=== PATIENT | female | born 1970 | race Caucasian/White ===

== ENCOUNTER 2018-09-25 11:53 | Outpatient (REF) | payer BC, SELFPAY ==
[2018-09-25 20:08] LABS: Cholesterol 194 mg/dL (50-200); HDL Cholesterol 62 mg/dL (40-60); Iron 51 ug/dL (50-175); LDL CHOLESTEROL 107 mg/dL (<100); Total Iron Binding Capacity 349 ug/dL (250-450); Transferrin Sat 15 % (15-50); Triglyceride 94 mg/dL (30-150)
== END 2018-09-25 12:13 ==
LOC: NCHCN 11:53
PROVIDERS: PCP Nurse Practitioner; Visit Provider Nurse Practitioner
DX: D50.9 Iron deficiency anemia, unspecified (principal); E78.5 Hyperlipidemia, unspecified
CPT/HCPCS: 80061; 83721; 83540; 83550

== ENCOUNTER 2018-10-18 00:15 | Outpatient (CLI) | payer BC, SELFPAY ==
--- NOTE | 2018-10-18 13:00 | DI.US_ITS ---
SYMPTOM/DIAGNOSIS: VAGINAL BLEEDING, N93.9, H/O HYSTERECTOMY AND UTERINE FIBROIDS. PELVIC ULTRASOUND: Comparison is made with 03 Aug 2016. Transabdominal and transvaginal exams were performed. The transabdominal images are limited by poor bladder distention. The patient is status post hysterectomy. There is a cervical remnant showing a Nabothian cyst. There is a small amount of fluid in the residual cervical canal. No definite mass is seen. A simple cyst is noted on the left ovary measuring 2.5 cm. The right ovary is unremarkable. IMPRESSION: Small amount of fluid in the cervical canal status post hysterectomy. Simple appearing left ovarian cyst.
== END 2018-10-18 00:35 ==
PROVIDERS: PCP Nurse Practitioner; Visit Provider Nurse Practitioner
DX: N93.9 Abnormal uterine and vaginal bleeding, unspecified (principal); N83.292 Other ovarian cyst, left side; Z90.710 Acquired absence of both cervix and uterus
CPT/HCPCS: 76830; 76856

== ENCOUNTER 2019-05-09 10:46 | Outpatient (REF) | payer MEDICAID, SELFPAY ==
[2019-05-09 20:57] LABS: HCT 40.1 % (36.0-46.0); HGB 13.3 g/dL (12.0-15.5); Mean Corp. HGB Concentration 33.2 g/dL (32.0-36.0); Mean Corpuscular Volume 90.5 fL (80-95); Mean Platelet Volume 10.3 fL (8.0-11.0); Platelet Count 250 x1000/uL (130-400); RBC 4.43 m/cumm (4.00-5.20); RBC Distribution Width 14.9 % (11.7-14.6)
[2019-05-09 21:12] LABS: Iron 78 ug/dL (50-175); Total Iron Binding Capacity 337 ug/dL (250-450); Transferrin Sat 23 % (15-50)
[2019-05-09 21:16] LABS: ALT 17 U/L (12-78); AST 15 U/L (15-37); Albumin 3.6 g/dL (3.4-5.0); Alkaline Phosphatase 90 U/L (46-116); Anion Gap 8.9 mmol/L (3-11); BUN 8 mg/dL (7-18); Bilirubin, Total 0.6 mg/dL (0.2-1.0); CO2 27.1 mmol/L (21.0-32.0); CREATININE 0.71 mg/dL (0.55-1.02); Calcium 9.1 mg/dL (8.5-10.1); Calculated LDL 116 mg/dL; Chloride 105 mmol/L (98-107); Cholesterol 223 mg/dL (50-200); Glucose 96 mg/dL (70-100); HDL Cholesterol 78 mg/dL (40-60); Potassium 4.2 mmol/L (3.5-5.1); Sodium 141 mmol/L (136-145); Total Protein 7.1 g/dL (6.4-8.2); Triglyceride 146 mg/dL (30-150)
== END 2019-05-09 11:06 ==
LOC: NCHCN 10:46
PROVIDERS: PCP Nurse Practitioner; Visit Provider Nurse Practitioner
DX: D50.9 Iron deficiency anemia, unspecified (principal); E78.5 Hyperlipidemia, unspecified; E66.01 Morbid (severe) obesity due to excess calories
CPT/HCPCS: 80053; 80061; 83721; 85027; 83540; 83550

== ENCOUNTER 2019-05-13 11:33 | Emergency (ER) | payer MEDICAID, SELFPAY ==
[2019-05-13 11:40] VITALS: BP 140/90; PULSE 80; TEMP 36.7; O2SAT 93
[2019-05-13 12:10] LABS: Bilirubin Negative (Negative); Blood Moderate (Negative); Clarity Cloudy (Clear); Glucose Negative (Negative); Ketones Trace mg/dL (Negative); Leukocyte Esterase Large (Negative); Nitrite Negative (Negative); Specific Gravity >= 1.030 (1.005-1.025); Urobilinogen 0.2 EU/dL (Up TO 0.2); pH 5.5 (5-8)
--- NOTE | 2019-05-13 12:12 | ED.GENADUL_ITS ---
Discharge Plan Discharge Details Chief Complaint: [employer] WORK[employer]OR Primary Care Provider: Yumiko Sheriff ED Provider: Marty Lainez Home Meds and New Rx's Prescriptions: No Action bupropion HCl [Wellbutrin SR] 150 mg tablet sustained-release 12 hr 150 mg PO DAILY RF: 0 benzonatate 200 mg capsule 200 mg PO TID PRNRF: 0 ascorbic acid (vitamin C) 500 mg tablet 500 mg PO DAILY RF: 0 nystatin 100,000 unit/gram cream 1 applic TP BID RF: 0 ferrous gluconate 240 mg (27 mg iron) tablet 240 mg PO DAILY RF: 0 furosemide 20 mg tablet 20 mg PO DAILY RF: 0 ProAir HFA 90 mcg/actuation HFA aerosol inhaler 2 puff IH Q4H PRNRF: 0 omeprazole magnesium [Prilosec OTC] 20 MG tablet,delayed release (DR/EC) 20 mg PO DAILY RF: 0 gxmiwiftdsin-bekb-vprtp acid [Multi Complete with Iron] 1 EACH tablet 1 tab-cap PO DAILY RF: 0 HPI Carin left without being seen as she remembered she had an appointment before I had a chance to see her. General Date/Time Provider Initiated Documentation: 05/13/19 11:53 . Related Data Home Medications Medication Instructions Recorded Confirmed ruutfumswksq-cuph-[id number] acid 1 tab-cap PO DAILY tab-cap 12/09/14 02/11/18 [Multi Complete with Iron] omeprazole magnesium [Prilosec Otc] 20 mg PO DAILY 12/09/14 02/11/18 albuterol sulfate HFA 90 2 puff IH Q4H PRN gm 11/29/18 11/29/18 mcg/actuation aerosol inhaler ascorbic acid (vitamin C) 500 mg 500 mg PO DAILY 11/29/18 11/29/18 tablet benzonatate 200 mg capsule 200 mg PO TID PRN 11/29/18 11/29/18 bupropion HCl SR 150 mg tablet,12 150 mg PO DAILY 11/29/18 11/29/18 hr sustained-release ferrous gluconate 240 mg (27 mg 240 mg PO DAILY tab 11/29/18 11/29/18 iron) tablet furosemide 20 mg tablet 20 mg PO DAILY 11/29/18 11/29/18 nystatin 100,000 unit/gram topical 1 applic TP BID 11/29/18 11/29/18 cream Allergies Allergy/AdvReac Type Severity Reaction Status Date / Time Sulfa (Sulfonamide Allergy Intermediate Rash Unverified 02/11/18 12:02 Antibiotics) General Stated Complaint: [employer] JENELLE: 3 PFSH Medical History At risk for sleep apnea (Acute) Bronchitis, acute, with bronchospasm (Acute) Daytime somnolence (Acute) Edema (Acute) Hyperlipemia (Acute) Iron deficiency anemia (Acute) Koilonychia (Acute) Nabothian cyst (Acute) Onychomycosis (Acute) Pain, joint, knee, left (Acute) Rosacea (Acute) Tinea pedis (Acute) Vaginal bleeding (Acute) Depression (Chronic) GERD (gastroesophageal reflux disease) (Chronic) H/O: hysterectomy (Chronic) Social History Smoking/Tobacco Use Status: Never Drug use: Never Do you feel safe in your relationship?: Yes Course Vital Signs Temperature 36.7 C 05/13/19 11:40 Pulse 80 05/13/19 11:40 Blood Pressure 140/90 05/13/19 11:40 Pulse Oximetry 93 L 05/13/19 11:40 Temperature 36.7 C 05/13/19 11:40 Temperature Source Temporal Artery Scan 05/13/19 11:40 Pulse 80 05/13/19 11:40 Blood Pressure 140/90 05/13/19 11:40 Blood Pressure Position Sitting 05/13/19 11:40 Pulse Oximetry 93 L 05/13/19 11:40 Oxygen Delivery Method Room Air 05/13/19 11:40 Oxygen Flow Rate 0 05/13/19 11:40
[2019-05-13 12:13] LABS: Epithelial Cells Many HPF (Negative); RBC 20-50 (0-2); WBC 20-50 HPF (0-5)
[2019-05-13 12:15] LABS: Bacteria Moderate HPF (Negative); C & S Indicated? No/Sq. Contamination; Casts Negative LPF (Negative); Crystals Negative HPF (Negative); Mucus Negative (Negative)
--- NOTE | 2019-05-13 12:17 | NUR.NOTE ---
pt gave a urine sample and then realized that she was supposed to be in [place] right away. she left but states that she will be back Nursing Note:
== END 2019-05-13 12:07 | disposition left before discharge ==
PROVIDERS: Emergency Provider Physician Assistant Medical; PCP Nurse Practitioner
DX: Z53.21 Procedure and treatment not carried out due to patient leaving prior to being seen by health care provider (principal)
CPT/HCPCS: 81003; 81015

== ENCOUNTER 2019-05-13 19:46 | Emergency (ER) | payer MEDICAID, SELFPAY ==
[2019-05-13 19:49] VITALS: BP 153/99; PULSE 81; RESP 16; TEMP 36.5; O2SAT 98
[2019-05-13] MEDS: Fluconazole 100 MG TAB PO (20:10)
--- NOTE | 2019-05-13 20:11 | ED.GENADUL_ITS ---
Discharge Plan Disposition Patient Disposition: HOME Condition: Stable Discharge Details Chief Complaint: Urinary Clinical Impression: Urinary tract infection Primary Care Provider: Yumiko Sheriff ED Provider: Elmer Luis Home Meds and New Rx's Prescriptions: New nitrofurantoin monohyd/m-cryst [Macrobid] 100 mg capsule 100 mg PO BID Qty: 14 RF: 0 fluconazole 100 mg tablet 100 mg PO DAILY Qty: 1 RF: 0 Continued bupropion HCl [Wellbutrin SR] 150 mg tablet sustained-release 12 hr 150 mg PO DAILY RF: 0 benzonatate 200 mg capsule 200 mg PO TID PRNRF: 0 ascorbic acid (vitamin C) 500 mg tablet 500 mg PO DAILY RF: 0 nystatin 100,000 unit/gram cream 1 applic TP BID RF: 0 ferrous gluconate 240 mg (27 mg iron) tablet 240 mg PO DAILY RF: 0 furosemide 20 mg tablet 20 mg PO DAILY RF: 0 albuterol sulfate [ProAir HFA] 90 mcg/actuation HFA aerosol inhaler 2 puff IH Q4H PRNRF: 0 Prilosec OTC 20 MG tablet,delayed release (DR/EC) 20 mg PO DAILY RF: 0 Multi Complete with Iron 1 EACH tablet 1 tab-cap PO DAILY RF: 0 Discharge Instructions Instructions: Urinary Tract Infection in Women (ED) Additional Instructions: follow up with your primary care provider or women's wellness if not better in a week if you have severe back pain, fevers, abdominal pain or persistent vomit return to the emergency department Medical Decision Making 48 yo female comes in with several days of urinary burning and frequency. no systemic symptoms scuh as fevers/chills and no back pain, cva tenderness or abdominal tenderness so doubt pyelo or sepsis, will check urinalysis. She is also complaining of vaginal irritation similar to prior yeast infections. Will prescribe fluconazole but advised f/u with her pcp or women's wellness if not better after this. UA cosistent with uti with leukocyte esterse, will start macrobid and d/c home, return precautions given Differential Diagnosis yeast infection, uti Lab Data Lab results reviewed: Yes I reviewed the patient's lab results. HPI General Mode of arrival: ambulatory . Date/Time Provider Initiated Documentation: 05/13/19 19:52 . Limitations to Documentation: no limitations . Information obtained by: patient . History of Present Illness 48 year old F presents to the emergency department with the chief complaint of urinary burning, described as moderate, Quality is described as burning, Patient reports no radiation. Patient started experiencing this day(s) (2) and it has been constant. No relieving factors improve symptom(s), No exacerbating factors reported . Patient did receive the following treatments prior to arrival, none Related Data Home Medications Medication Instructions Recorded Confirmed Multi Complete with Iron 1 tab-cap PO DAILY tab-cap 12/09/14 05/13/19 Prilosec OTC 20 mg PO DAILY 12/09/14 05/13/19 albuterol sulfate HFA 90 2 puff IH Q4H PRN gm 11/29/18 05/13/19 mcg/actuation aerosol inhaler ascorbic acid (vitamin C) 500 mg 500 mg PO DAILY 11/29/18 05/13/19 tablet benzonatate 200 mg capsule 200 mg PO TID PRN 11/29/18 05/13/19 bupropion HCl SR 150 mg tablet,12 150 mg PO DAILY 11/29/18 05/13/19 hr sustained-release ferrous gluconate 240 mg (27 mg 240 mg PO DAILY tab 11/29/18 05/13/19 iron) tablet furosemide 20 mg tablet 20 mg PO DAILY 11/29/18 05/13/19 nystatin 100,000 unit/gram topical 1 applic TP BID 11/29/18 05/13/19 cream fluconazole 100 mg PO DAILY #1 tab 05/13/19 nitrofurantoin monohyd/m-cryst 100 mg PO BID #14 cap 05/13/19 [Macrobid] Previous Rx's Medication Instructions Recorded fluconazole 100 mg PO DAILY #1 tab 05/13/19 nitrofurantoin monohyd/m-cryst 100 mg PO BID #14 cap 05/13/19 [Macrobid] Allergies Allergy/AdvReac Type Severity Reaction Status Date / Time Sulfa (Sulfonamide Allergy Intermediate Rash Unverified 05/13/19 19:52 Antibiotics) General Stated Complaint: Urinary JENELLE: 4 Review of Systems Review of Systems All systems reviewed & are unremarkable except as noted in HPI and below Constitutional Denies chills, Denies fever(s) and Denies weakness Cardiovascular Denies chest pain and Denies dyspnea Respiratory Denies cough and Denies dyspnea Gastrointestinal Denies abdominal pain, Denies nausea and Denies vomiting Integumentary/Breasts Denies rash Neurologic Denies weakness PFSH Medical History At risk for sleep apnea (Acute) Bronchitis, acute, with bronchospasm (Acute) Daytime somnolence (Acute) Edema (Acute) Hyperlipemia (Acute) Iron deficiency anemia (Acute) Koilonychia (Acute) Nabothian cyst (Acute) Onychomycosis (Acute) Pain, joint, knee, left (Acute) Rosacea (Acute) Tinea pedis (Acute) Vaginal bleeding (Acute) Depression (Chronic) GERD (gastroesophageal reflux disease) (Chronic) H/O: hysterectomy (Chronic) Social History Smoking/Tobacco Use Status: Never Alcohol Intake: never Drug use: Never Do you feel safe at home: Yes Do you feel safe in your relationship?: Yes Exam Const General: no acute distress Orientation: alert HENMT Head: normal to inspection Ears: external ears normal General nose exam: external nose normal Mouth: moist mucous membranes Eyes General: appearance normal, both eyes and all related structures Neck Neck: normal visual inspection Resp Effort & Inspection: normal respiratory effort and able to speak in complete sentences Cardio Rate: regular rate Skin General skin exam: no rashes or lesions noted Neuro General: alert and oriented x3 Extrem General: normal to inspection Psych Mental Status: mental status grossly normal Course Vital Signs Temperature 36.5 C 05/13/19 19:49 Pulse 81 05/13/19 19:49 Respiratory Rate 16 05/13/19 19:49 Blood Pressure 153/99 H 05/13/19 19:49 Pulse Oximetry 98 05/13/19 19:49 Temperature 36.5 C 05/13/19 19:49 Temperature Source Skin 05/13/19 19:49 Pulse 81 05/13/19 19:49 Respiratory Rate 16 05/13/19 19:49 Respiratory Effort Non-Labored 05/13/19 19:52 Blood Pressure 153/99 H 05/13/19 19:49 Blood Pressure Position Sitting 05/13/19 19:49 Pulse Oximetry 98 05/13/19 19:49 Oxygen Delivery Method Room Air 05/13/19 19:49 Oxygen Flow Rate 0 05/13/19 19:49 Pain Level 5 05/13/19 19:55 Lab/Test Results Lab/Test Results: 05/13/19 20:00 Urine - Clean Catch Urine Culture - Pending
[2019-05-13 20:13] LABS: Bilirubin Negative (Negative); Blood Small (Negative); Clarity Sl Cloudy (Clear); Glucose Negative (Negative); Ketones Trace mg/dL (Negative); Leukocyte Esterase Moderate (Negative); Nitrite Negative (Negative); Specific Gravity >= 1.030 (1.005-1.025); Urobilinogen 0.2 EU/dL (Up TO 0.2); pH 5.5 (5-8)
[2019-05-13 20:23] LABS: Bacteria Moderate HPF (Negative); Casts Negative LPF (Negative); Crystals Negative HPF (Negative); Epithelial Cells Many HPF (Negative); Mucus Negative (Negative); WBC >50 HPF (0-5)
[2019-05-13 20:24] LABS: C & S Indicated? C&S Done As Ordered
[2019-05-13] MEDS: MacroBID 100 MG CAP PO (20:29)
== END 2019-05-13 20:30 | disposition home or self-care (01) ==
PROVIDERS: Emergency Provider Emergency Medicine; PCP Nurse Practitioner
DX: N39.0 Urinary tract infection, site not specified (principal); N89.8 Other specified noninflammatory disorders of vagina; Z53.21 Procedure and treatment not carried out due to patient leaving prior to being seen by health care provider
CPT/HCPCS: 99283; 81003; 81015; 87086

== ENCOUNTER 2021-01-05 22:41 | Emergency (ER) | payer MEDICAID, SELFPAY ==
[2021-01-05] VITALS (7 sets, daily range): BP systolic 67–76; BP diastolic 42–47; PULSE 49–56; RESP 16–22; TEMP 35.9; O2SAT 99–100
--- NOTE | 2021-01-05 23:15 | DI.CT_ITS ---
EXAM: CT CHEST/ABD/PEL W CLINICAL HISTORY: multiple areas of trauma, ecchymosis groin, left. TECHNIQUE: Imaging Protocol: Axial computed tomography images with coronal and sagittal reformatted images were created and reviewed CONTRAST MATERIAL: Intravenous: Omnipaque 350 Contrast volume:70 ml Oral: no COMPARISON: CT CT THORACIC LUMBAR SPINE REC from 01/06/[address] THORACIC LUMBAR SPINE REC from 01/06/2021 FINDINGS: Exam is limited by mild respiratory motion and patient arm positioning. CHEST: Tracheobronchial tree: Patent where visualized. Mediastinum and Shital: No dominant adenopathy . Pulmonary parenchyma: Right upper and middle lobe pneumonia versus pulmonary contusions.. Pleura: Small to moderate-sized bilateral pleural effusions, left greater than right. No pneumothora x. Lymph nodes: Within normal limits. Aorta: Thoracic portion non-dilated. Heart: Mildly enlarged. No pericardial effusion. Bones: There is a fracture of the distal humerus with full shaft with of medial displacement. There is mild comminution. Multiple bilateral rib fractures of varying age. There are bilateral 9th rib fractures which appear acute. A right posterior 9th rib fracture may be acute. Old fractures of the spinous processes of T1 and T3. Minimal compression fracture of the superior en dplate of T4, likely old. Degenerative disc changes in the mid to lower thoracic spine. Diffuse body wall edema. ABDOMEN: Liver: Normal density. No measurable mass. Periportal edema. Gallbladder and biliary tract: No radiodense calculus or dilation. Pancreas: Normal density, no abnormal calcifications or inflammatory process. Spleen: Normal. Kidneys: Normal size, contour and axis. No radiodense stones or obstructive uropathy. No masses seen. Adrenal glands: No masses seen. Aorta: Abdominal portion non-dilated. Lymph nodes: Within normal limits. PELVIS: Bladder: Bellamy catheter in a decompressed urinary bladder. Bowel: Large quantity of stool. Peritoneal cavity: No ascites, collection or mesenteric inflammatory response. Bones: Old right L2 and L5 transverse process fractures. Old L3 and L4 spinous process fractures. N o definite acute fractures. Vertebral bodies are normal in height. No pelvic fractures. Reproductive organs: Not well seen. . Soft tissues: Small amount of air in the posterior and lateral soft tissues of the pelvis. No drain able hematoma. IMPRESSION: Extremely limited exam due to arm positioning. Multiple old bilateral rib fractures. Acute appearing rice 7th and 9th rib fractures and a acute vianey earing left 10th rib fracture. Bilateral pleural effusions. Right upper and middle lobe pneumonia versus pulmonary contusion.. Diffuse body wall edema. No definite acute abdominal injury. Old transverse process fractures. RADIATION DOSE DELIVERED: Total DLP DATA REPOSITORY: All CT scans at this facility are submitted to the National Radiology Data Registry (NRDR) Dose Index Registry (DIR) with the [employer] ([employer]). RADIATION OPTIMIZATION: All CT scans at this facility use at least one of these dose optimization te chniques: automated exposure control; mA and/or kV adjustment per patient size (includes targeted exa ms where dose is matched to clinical indication); or iterative reconstruction.
--- NOTE | 2021-01-05 23:15 | RT.EKG_ITS ---
APPROVED REPORT Exam: Resting ECG Patient Location: E HR:52 bpm ECG Measurements Heart Rate 52 AXIS AZ 224 P 48 QRSd 111 QRS -6 QT 520 T 31 QTc 485 Conclusion Sinus bradycardia...rate< 60 Prolonged AZ interval...AZ >210, V-rate 50- 90
--- NOTE | 2021-01-05 23:30 | DI.CT_ITS ---
EXAM: CT HEAD CERV SPINE FACIAL WO CLINICAL HISTORY: facial and injury. TECHNIQUE: Imaging Protocol: Axial computed tomography images with coronal and sagittal reformatted images were created and reviewed COMPARISON: CT CT CHEST/ABD/PEL W from 01/06/[address] CHEST/ABD/PEL W from 01/06/2021 FINDINGS: Head CT Ventricles and Extra axial spaces: Normal in size and morphology for the patient's age. Hemorrhage: None. Cerebral parenchyma: Normal. Midline shift: None. Brainstem/Cerebellum: Normal. Calvarium: Normal. Visualized Paranasal sinuses/Mastoids: Clear. Cervical Spine CT BONES: Vertebral body heights are maintained. Alignment is normal. There is no evidence of acute frac ture. Mild degenerative disc changes and facet degenerative changes are seen . SOFT TISSUES: No paraspinal hematoma. The airway appears intact. No pneumothorax is seen at the lung apices. venous air is noted likely iatrogenic. Facial CT: There is soft tissue swelling around the left orbit. An upper eyelid laceration is presen t. The left lens appears dislocated inferiorly. There comminuted nasal fractures. The patient has had previous surgery with hardware in place a valve in the maxilla as well as both sides of the martha ible. There is artifact related to the hardware is well as dental work. There is a nondisplaced fra cture of the lateral wall of the left orbit. There is a fracture of the left zygoma which appears ol d. There is a fracture of the inferior left wall of the left maxillary sinus which is of indetermin ate age. There is an old fracture involving the medial wall of the right orbit. There is chronic ma xillary sinus disease. IMPRESSION: Head CT: No acute abnormality. C-spine CT: Degenerative changes, no acute abnormality. Facial CT: Nondisplaced fracture of the lateral wall of the left orbit and surrounding soft tissue sw elling and laceration. Dislocation of the left lens. Nasal fractures. RADIATION DOSE DELIVERED: LINK-TO-SR Total DLP DATA REPOSITORY: All CT scans at this facility are submitted to the National Radiology Data Registry (NRDR) Dose Index Registry (DIR) with the [employer] (ACR). RADIATION OPTIMIZATION: All CT scans at this facility use at least one of these dose optimization te chniques: automated exposure control; mA and/or kV adjustment per patient size (includes targeted exa ms where dose is matched to clinical indication); or iterative reconstruction.
[2021-01-05] MEDS: Normal Saline 1,000 ML 1000 ML IV (23:45)
--- NOTE | 2021-01-05 23:50 | ED.GENADUL_ITS ---
Discharge Plan Discharge Details Chief Complaint: GenMedical Primary Care Provider: Yumiko Sheriff ED Provider: Ofe Carroll Home Meds and New Rx's Prescriptions: No Action bupropion HCl [Wellbutrin SR] 150 mg tablet sustained-release 12 hr 150 mg PO DAILY RF: 0 benzonatate 200 mg capsule 200 mg PO TID PRNRF: 0 ascorbic acid (vitamin C) 500 mg tablet 500 mg PO DAILY RF: 0 nystatin 100,000 unit/gram cream 1 applic TP BID RF: 0 ferrous gluconate 240 mg (27 mg iron) tablet 240 mg PO DAILY RF: 0 furosemide 20 mg tablet 20 mg PO DAILY RF: 0 albuterol sulfate [ProAir HFA] 90 mcg/actuation HFA aerosol inhaler 2 puff IH Q4H PRNRF: 0 Prilosec OTC 20 MG tablet,delayed release (DR/EC) 20 mg PO DAILY RF: 0 Multi Complete with Iron 1 EACH tablet 1 tab-cap PO DAILY RF: 0 nitrofurantoin monohyd/m-cryst [Macrobid] 100 mg capsule 100 mg PO BID Qty: 14 RF: 0 fluconazole 100 mg tablet 100 mg PO DAILY Qty: 1 RF: 0 Medical Decision Making Quite ill-appearing 50-year-old female, hypotensive, bradycardic, multiple trauma Hemoglobin of 4, hematocrit of 14 BUN of 102 Given hypotension and anemia which is likely acute, O- blood was ordered we will type and cross is being performed 2 lines were established, Zosyn initiated Lactate of 4.3 Phosphorus elevated at 5.8, magnesium 2.9, creatinine 1.7 CPK minimally elevated to 77, albumin 2.1 likely consistent with malnourishment Sepsis bolus of fluid was ordered Unfortunately delayed transport to CT given patient vomiting and diarrhea, she is over at CT at 12:15 AM Patient is in critical condition, she is signed out to my attending physician, Dr. Luis at 12:[address] imaging and resuscitation Uncrossed blood is being initiated, sepsis bolus of fluids is being initiated, Zosyn initiated empirically, pending disposition Differential Diagnosis Differential Diagnosis: Subdural hematoma, splenic injury, pelvic hematoma, fracture Medical Records Medical records reviewed: Yes I reviewed the patient's medical records. Lab Data Lab results reviewed: Yes I reviewed the patient's lab results. HPI This 50-year-old female with past medical history of depression and anxiety presents with report of numerous reasons, dizziness, frequent falls, and intermittent confusion. Patient reportedly is living with a member of her zoroastrianism and has been exhibiting odd behaviors and falling for the past several weeks. Patient reportedly have a headache, left elbow pain, and numerous ulcers to her lower extremities. She does have a history of alcohol abuse, she states she has not used regularly over the course of the past couple weeks. She did have several drinks a week ago. She denies any alcohol consumption in the past 6 days. Patient denies any chest pain, shortness of breath. General Date/Time Provider Initiated Documentation: 01/05/21 22:46 . Related Data Home Medications Medication Instructions Recorded Confirmed Multi Complete with Iron 1 tab-cap PO DAILY tab-cap 12/09/14 05/13/19 Prilosec OTC 20 mg PO DAILY 12/09/14 05/13/19 albuterol sulfate 90 mcg/actuation 2 puff IH Q4H PRN gm 11/29/18 05/13/19 aerosol inhaler ascorbic acid (vitamin C) 500 mg 500 mg PO DAILY 11/29/18 05/13/19 tablet benzonatate 200 mg capsule 200 mg PO TID PRN 11/29/18 05/13/19 bupropion HCl 150 mg tablet,12 hr 150 mg PO DAILY 11/29/18 05/13/19 sustained-release ferrous gluconate 240 mg (27 mg 240 mg PO DAILY tab 11/29/18 05/13/19 iron) tablet furosemide 20 mg tablet 20 mg PO DAILY 11/29/18 05/13/19 nystatin 100,000 unit/gram topical 1 applic TP BID 11/29/18 05/13/19 cream fluconazole 100 mg PO DAILY #1 tab 05/13/19 nitrofurantoin monohyd/m-cryst 100 mg PO BID #14 cap 05/13/19 [Macrobid] Previous Rx's Medication Instructions Recorded fluconazole 100 mg PO DAILY #1 tab 05/13/19 nitrofurantoin monohyd/m-cryst 100 mg PO BID #14 cap 05/13/19 [Macrobid] Allergies Allergy/AdvReac Type Severity Reaction Status Date / Time Sulfa (Sulfonamide Allergy Intermediate Rash Unverified 01/05/21 23:32 Antibiotics) General Stated Complaint: GenMedical JENELLE: 2 Review of Systems Narrative: Review of systems negative x7 aside from where indicated in HPI, no vomiting, no known history of coagulopathy, headache, pelvic pain, dizziness [facility] Medical History (Updated 12/08/18 @ 12:54 by Tyler Rubio) At risk for sleep apnea Bronchitis, acute, with bronchospasm Daytime somnolence Depression Edema GERD (gastroesophageal reflux disease) Hyperlipemia Iron deficiency anemia Koilonychia Nabothian cyst Onychomycosis Pain, joint, knee, left Rosacea Tinea pedis Vaginal bleeding Surgical History (Updated 11/29/18 @ 09:02 by Christine Hurst LPN) H/O: hysterectomy Social History Smoking/Tobacco Use Status: Never Smoking risk assessment performed?: Yes Alcohol Intake: never Drug use: Never Do you feel safe at home: Yes Do you feel safe in your relationship?: Yes Exam Const General: ill appearing Orientation: alert and oriented x3 HENMT Mouth: oral mucosae normal Other: Wounds noted to occipital region Uvula midline No hemotympanum Eyes Pupils: PERRL Eyes/upper lids images: 1. Laceration, healing Neck Other: No visible trauma midline tenderness Chest Other: Tenderness with palpation ecchymosis to left anterior rib cage, no crepitus Resp Effort & Inspection: normal respiratory effort Auscultation: clear to auscultation bilaterally Cardio Rate: bradycardic Rhythm: regular rhythm Pulses: normal peripheral pulses Other: Sinus bradycardia GI Other: Distended abdomen, firm to palpation, ecchymosis left upper quadrant, left flank Ecchymosis pelvis , No rebound or guarding Back/Spine/Pelvis Other: No midline tenderness Skin Other: Large ulceration to posterior calf., Right numerous ulceration left calf Frostbite to 10 digits on hand Ecchymosis to bilateral feet with crepitus to left foot Large ecchymosis to left thigh Neuro General: patient alert and patient oriented x3 Cranial Nerves: CN's II-XI intact bilaterally Speech: speech normal Extrem Right lower extremity: normal capillary refill Left lower extremity: normal capillary refill Other: Large ecchymosis and tenderness to left lateral thigh, large area of ecchymosis and tenderness to left elbow Course Vital Signs Vital signs: Vital Signs Temperature 35.9 C L 01/05/21 23:19 Pulse 49 L 01/05/21 23:19 Respiratory Rate 16 01/05/21 23:19 Blood Pressure 76/47 L 01/05/21 23:19 Pulse Oximetry 100 01/05/21 23:19 Temperature 35.9 C L 01/05/21 23:19 Temperature Source Skin 01/05/21 23:19 Pulse 49 L 01/05/21 23:19 Respiratory Rate 16 01/05/21 23:19 Blood Pressure 76/47 L 01/05/21 23:19 Blood Pressure Position Supine 01/05/21 23:19 Pulse Oximetry 100 01/05/21 23:19 Oxygen Delivery Method Room Air 01/05/21 23:19 Oxygen Flow Rate 0 01/05/21 23:19 Pain Level 8 01/05/21 23:19 Lab/Test Results Lab/Test Results: 01/05/21 23:30 Blood Blood Culture - Pending 01/05/21 23:31 Blood Blood Culture - Pending
[2021-01-05 23:53] LABS: Abs Immature Grans 0.03 10^3/uL (0.0-0.06); Absolute Basophil Count 0.01 10^3/uL (0.0-0.2); Absolute Eosinophil Count 0.02 10^3/uL (0.0-0.7); Absolute Lymphocyte Count 0.73 10^3/uL (1.2-3.4); Absolute Monocyte Count 0.36 10^3/uL (0.1-0.8); Absolute Neutrophil Count 6.23 10^3/uL (1.2-6.7); BE (Venous) -8 mmol/L (-2-3); Basophils % 0.1; Eosinophils % 0.3; HCO3 (Venous) 18 mmol/L (23-28); Immature Grans % 0.4; Lymphocytes % 9.9; MCV 88.6 fL (80-95); MPV 10.2 fL (8.0-11.0); Monocytes % 4.9; Neutrophils % 84.4; Nucleated RBC 0 %; O2 Sat (Venous) 97 %; Platelet Count 296 10^3/uL (130-400); RBC 1.67 10^6/uL (3.93-5.22); RDW 21.9 % (11.7-14.6); RDW-SD 65.8 fL; WBC 7.38 10^3/uL (4.4-10.8); pCO2 (Venous) 35 mmHg (41-51); pH (Venous) 7.31 (7.31-7.41); pO2 (Venous) 80 mmHg
[2021-01-05 23:55] LABS: Lactate 4.3 mmol/L (0.6-1.4)
[2021-01-05 23:58] LABS: HCT 14.8 % (36.0-46.0)
[2021-01-06] VITALS (41 sets, daily range): BP systolic 60–85; BP diastolic 41–59; PULSE 47–72; RESP 11–24; TEMP 30.8–36; O2SAT 94–100
[2021-01-06] MEDS: PIPERACILLIN/TAZO 3.375 GM in Normal Saline 50 ML IVPB (00:06)
[2021-01-06] MEDS: Lactated Ringers 1,000 ML 2000 ML IV (00:10)
[2021-01-06 00:11] LABS: ALT 43 U/L (14-59); AST 60 U/L (15-37); Albumin 2.1 g/dL (3.4-5.0); Alkaline Phosphatase 129 U/L (46-116); Anion Gap 13.5 mmol/L (3-11); Bilirubin, Total 0.6 mg/dL (0.2-1.0); CO2 19.5 mmol/L (21.0-32.0); CREATININE 1.7 mg/dL (0.55-1.02); Calcium 8.6 mg/dL (8.5-10.1); Chloride 107 mmol/L (98-107); Creatine Kinase 377 U/L (26-192); Estimated GFR 31.81 (mL/min/1.73m2); Glucose 81 mg/dL (74-106); Magnesium 2.9 mg/dL (1.8-2.4); PHOSPHORUS 5.8 mg/dL (2.6-4.7); Potassium 5.1 mmol/L (3.5-5.1); Sodium 140 mmol/L (136-145); Total Protein 6.3 g/dL (6.4-8.2)
[2021-01-06 00:16] LABS: BUN 102 mg/dL (7-18)
[2021-01-06] MEDS: Ondansetron 4 MG/2 ML VIAL IVP (00:20)
[2021-01-06 00:21] LABS: INR 1.1 (0.9-1.1); Prothrombin Time 11.3 sec (9.3-11.0)
[2021-01-06 00:32] LABS: Source Nasal/Nares
--- NOTE | 2021-01-06 00:59 | DI.VRAD_ITS ---
PROCEDURE INFORMATION: Exam: CT Head Without Contrast Exam date and time: 01/05/2021 11:36 PM Age: 50 years old Clinical indication: Injury or trauma; Other: Unknown; Blunt trauma (contusions or hematomas); Eyelid; Upper left; Injury date: 01/05/21; Injury details: AMS, facial lacerations; Prior surgery; Surgery type: Jaw surgery TECHNIQUE: Imaging protocol: Computed tomography of the head without contrast. Radiation optimization: All CT scans at this facility use at least one of these dose optimization techniques: automated exposure control; mA and/or kV adjustment per patient size (includes targeted exams where dose is matched to clinical indication); or iterative reconstruction. COMPARISON: No relevant prior studies available. FINDINGS: Brain: Age- related chronic microvascular changes are noted within the white matter. Cerebral ventricles: The ventricles and sulci are prominent compatible with age-appropriate atrophy. Bones/joints: Old zygomatic arch fracture deformities and old nasal bone fracture deformities noted. Old left-sided tripod fracture appears to be present. Old right lamina papyracea fracture.. Paranasal sinuses: Visualized sinuses are unremarkable. No fluid levels. Mastoid air cells: Visualized mastoid air cells are well aerated. Orbital cavity: Findings suspicious for a left-sided ocular lens dislocation noted. Fatty infiltration in the retro-orbital fat bilaterally may reflect baseline versus subtle retro-orbital hemorrhage. Soft tissues: Soft tissue gas in the left temporal region may reflect laceration or intravenous gas. IMPRESSION: 1. Old zygomatic arch fracture deformities and old nasal bone fracture deformities noted. Old left-sided tripod fracture appears to be present. Old right lamina papyracea fracture.. 2. Findings suspicious for a left-sided ocular lens dislocation noted. 3. Fatty infiltration in the retro-orbital fat bilaterally may reflect baseline versus subtle retro-orbital hemorrhage. 4. Soft tissue gas in the left temporal region may reflect laceration or intravenous gas. 5. Age-appropriate atrophy and chronic microvascular change. PROCEDURE INFORMATION: Exam: CT Maxillofacial Without Contrast Exam date and time: 01/05/2021 11:36 PM Age: 50 years old Clinical indication: Injury or trauma; Other: Unknown; Blunt trauma (contusions or hematomas); Eyelid; Upper left; Injury date: 01/05/21; Injury details: AMS, facial lacerations; Prior surgery; Surgery type: Jaw surgery TECHNIQUE: Imaging protocol: Computed tomography images of the face without contrast. Radiation optimization: All CT scans at this facility use at least one of these dose optimization techniques: automated exposure control; mA and/or kV adjustment per patient size (includes targeted exams where dose is matched to clinical indication); or iterative reconstruction. COMPARISON: No relevant prior studies available. FINDINGS: Orbital cavity: Left-sided ocular lens dislocation. Bilateral retro-orbital fatty infiltration compatible with baseline related to prior trauma versus mild bilateral retro-orbital hemorrhage. Bones/joints: Old facial and orbital fractures include an old left-sided tripod fracture. Paranasal sinuses: Normal. No air-fluid levels. Soft tissues: Gas noted at the skull base and in the left temporal fossa likely reflects intravenous gas although laceration not excluded. IMPRESSION: 1. Old facial and orbital fractures include an old left-sided tripod fracture. 2. Left-sided ocular lens dislocation. 3. Bilateral retro-orbital fatty infiltration compatible with baseline related to prior trauma versus mild bilateral retro-orbital hemorrhage. 4. Gas noted at the skull base and in the left temporal fossa likely reflects intravenous gas although laceration not excluded. PROCEDURE INFORMATION: Exam: CT Cervical Spine Without Contrast Exam date and time: 01/05/2021 11:36 PM Age: 50 years old Clinical indication: Injury or trauma; Other: Unknown; Blunt trauma (contusions or hematomas); Eyelid; Upper left; Injury date: 01/05/21; Injury details: AMS, facial lacerations; Prior surgery; Surgery type: Jaw surgery TECHNIQUE: Imaging protocol: Computed tomography images of the cervical spine without contrast. Radiation optimization: All CT scans at this facility use at least one of these dose optimization techniques: automated exposure control; mA and/or kV adjustment per patient size (includes targeted exams where dose is matched to clinical indication); or iterative reconstruction. COMPARISON: No relevant prior studies available. FINDINGS: Vertebrae: Cervical degenerative disc disease and facet joint arthropathy noted. No evidence for fracture, dislocation or subluxation. Soft tissues: Unremarkable. IMPRESSION: No acute findings Dictated and Authenticated by: Wong Mead MD. Ordering:CELENA Thakur MD
[2021-01-06 01:03] LABS: Diff Comment Agrees w/ Instrument
[2021-01-06] MEDS: Omnipaque 350 MG/ML 100 ML BTL IJ (01:07)
[2021-01-06] MEDS: Normal Saline - Diluent 50 ML VIAL IV (01:08)
[2021-01-06 01:09] LABS: Bilirubin Negative (Negative); Blood Negative (Negative); Clarity Clear (Clear); Glucose Negative (Negative); Ketones Negative (Negative); Leukocyte Esterase Negative (Negative); Nitrite Negative (Negative); Urobilinogen 0.2 EU/dL (Up TO 0.2); pH 5.5 (5-8)
[2021-01-06 01:09] LABS: Influenza A PCR Negative (Negative); Influenza B PCR Negative (Negative); RSV PCR Negative (Negative)
[2021-01-06] MEDS: Normal Saline Flush 10 ML SYR IVP (01:09)
--- NOTE | 2021-01-06 01:13 | DI.VRAD_ITS ---
PROCEDURE INFORMATION: Exam: CT Chest With Contrast; Diagnostic Exam date and time: 01/05/2021 12:37 AM Age: 50 years old Clinical indication: Abdominal pain; Generalized; Chest pain; Type not specified; Patient HX: AMS, multiple areas of trauma, ecchymosis groin, left TECHNIQUE: Imaging protocol: Diagnostic computed tomography of the chest with contrast. Radiation optimization: All CT scans at this facility use at least one of these dose optimization techniques: automated exposure control; mA and/or kV adjustment per patient size (includes targeted exams where dose is matched to clinical indication); or iterative reconstruction. Contrast material: OMNIPAQUE 350; Contrast volume: 70 ml; Contrast route: INTRAVENOUS (IV); COMPARISON: No relevant prior studies available. FINDINGS: There is a fracture of the distal left humerus with medial displacement of the elbow/humeral fracture fragments. Mild comminution observed. Rim calcified 16 mm nodule in the right lobe of the thyroid gland. There is air in the jugular veins and lower neck bilaterally presumably related to intravenous access Small pleural effusions greater on the right. Mild ground-glass/interstitial opacities in the right upper, middle and lower lobes and less striking in the left lower lobe. No pneumothorax. Healing left 7th, 8th and 10th and 11th rib fractures. Posterior bilateral 9th rib fracture appear acute. Right 7th and 8th rib fractures posteriorly of indeterminate age. Right 11th and 12th rib fractures noted. Partially healed 10th rib fracture posteriorly on the right. There are anterior chronic left 3rd, 5th and 6th through 8th rib fractures No aortic aneurysm. The heart is mildly enlarged without significant pericardial effusion IMPRESSION: Left distal humeral/elbow fracture/dislocation. Further evaluation recommended if not already performed Multiple rib fractures predominantly healing/healed. Additional age-indeterminate fractures posteriorly as described. Correlate for recent injury Small pleural effusions and mild asymmetric pneumonitis versus edema as described PROCEDURE INFORMATION: Exam: CT Abdomen And Pelvis With Contrast Exam date and time: 01/05/2021 12:37 AM Age: 50 years old Clinical indication: Abdominal pain; Generalized; Chest pain; Type not specified; Patient HX: AMS, multiple areas of trauma, ecchymosis groin, left TECHNIQUE: Imaging protocol: Computed tomography of the abdomen and pelvis with contrast. Radiation optimization: All CT scans at this facility use at least one of these dose optimization techniques: automated exposure control; mA and/or kV adjustment per patient size (includes targeted exams where dose is matched to clinical indication); or iterative reconstruction. Contrast material: OMNIPAQUE 350; Contrast volume: 70 ml; Contrast route: INTRAVENOUS (IV); COMPARISON: No relevant prior studies available. FINDINGS: Diffuse anasarca. No concerning osseous abnormality Periportal tracking noted. The gallbladder is partially contracted. No hydroureteronephrosis or calculus. The spleen, adrenal glands and pancreas are unremarkable as visualized. No aortic aneurysm. No bowel obstruction or free air. Moderate stool in the colon. The urinary bladder is partially decompressed by a Bellamy catheter. IMPRESSION: No active bleeding or definite solid organ injury Diffuse anasarca Nonspecific nonobstructed bowel gas pattern Dictated and Authenticated by: Humberto Ramirez MD. Ordering:CELENA Thakur MD
[2021-01-06 01:15] LABS: COVID-19 PCR Negative (Negative)
--- NOTE | 2021-01-06 01:30 | DI.VRAD_ITS ---
PROCEDURE INFORMATION: Exam: CT Thoracic Spine Without Contrast Exam date and time: 01/05/2021 12:37 AM Age: 50 years old Clinical indication: Injury or trauma; Blunt trauma (contusions or hematomas); Injury date: 01/05/21; Injury details: Unknown trauma; Patient HX: Multiple areas of trauma, ecchymosis groin, TECHNIQUE: Imaging protocol: Computed tomography images of the thoracic spine without contrast. Radiation optimization: All CT scans at this facility use at least one of these dose optimization techniques: automated exposure control; mA and/or kV adjustment per patient size (includes targeted exams where dose is matched to clinical indication); or iterative reconstruction. COMPARISON: No relevant prior studies available. FINDINGS: Vertebrae: Old T3 spinous process fracture deformity. Old T4 minimally wedged compression fracture deformity T1-T2: No significant disc protrusion. No severe spinal canal stenosis. No significant neural foraminal narrowing. T2-T3: No significant disc protrusion. No severe spinal canal stenosis. No significant neural foraminal narrowing. T3-T4: No significant disc protrusion. No severe spinal canal stenosis. No significant neural foraminal narrowing. T4-T5: No significant disc protrusion. No severe spinal canal stenosis. No significant neural foraminal narrowing. T5-T6: No significant disc protrusion. No severe spinal canal stenosis. No significant neural foraminal narrowing. T6-T7: No significant disc protrusion. No severe spinal canal stenosis. No significant neural foraminal narrowing. T7-T8: No significant disc protrusion. No severe spinal canal stenosis. No significant neural foraminal narrowing. T8-T9: No significant disc protrusion. No severe spinal canal stenosis. No significant neural foraminal narrowing. T9-T10: No significant disc protrusion. No severe spinal canal stenosis. No significant neural foraminal narrowing. T10-T11: No significant disc protrusion. No severe spinal canal stenosis. No significant neural foraminal narrowing. T11-T12: No significant disc protrusion. No severe spinal canal stenosis. No significant neural foraminal narrowing. T12-L1: No significant disc protrusion. No severe spinal canal stenosis. No significant neural foraminal narrowing. Other bones/joints: Multiple old rib fracture deformities noted. In addition acute appearing posterior right 7th, and 9th rib fractures appear to be present. Lungs: Pulmonary opacity on the right may reflect pneumonia. The finding is very extensive to reflect contusion. Pleural space: Bilateral low attenuating pleural effusions moderate on the right and small on the left IMPRESSION: 1. Multiple old rib fracture deformities noted. In addition acute appearing posterior right 7th, and 9th rib fractures appear to be present. 2. Pulmonary opacity on the right may reflect pneumonia. The finding is very extensive to reflect contusion. PROCEDURE INFORMATION: Exam: CT Lumbar Spine Without Contrast Exam date and time: 01/05/2021 12:37 AM Age: 50 years old Clinical indication: Injury or trauma; Blunt trauma (contusions or hematomas); Injury date: 01/05/21; Injury details: Unknown trauma; Patient HX: Multiple areas of trauma, ecchymosis groin, TECHNIQUE: Imaging protocol: Computed tomography images of the lumbar spine without contrast. Radiation optimization: All CT scans at this facility use at least one of these dose optimization techniques: automated exposure control; mA and/or kV adjustment per patient size (includes targeted exams where dose is matched to clinical indication); or iterative reconstruction. COMPARISON: No relevant prior studies available. FINDINGS: Vertebrae: Old right-sided L2 and L5 transverse process fractures. Old L3 and L4 spinous process fracture L1-L2: No significant disc protrusion. No severe spinal canal stenosis. No significant neural foraminal narrowing. L2-L3: No significant disc protrusion. No spinal canal stenosis. No neural foraminal narrowing. L3-L4: No significant disc protrusion. No severe spinal canal stenosis. No significant neural foraminal narrowing. L4-L5: No significant disc protrusion. No severe spinal canal stenosis. No significant neural foraminal narrowing. L5-S1: No significant disc protrusion. No severe spinal canal stenosis. No significant neural foraminal narrowing. Other bones/joints: Old right-sided pelvic fracture deformity Soft tissues: Unremarkable. IMPRESSION: No acute findings. Old lumbar and pelvic fracture deformities Dictated and Authenticated by: Wong Mead MD. Ordering:KYLAH Payne MD
[2021-01-06 01:55] LABS: ETHANOL BLOOD < 3.0 mg/dL (<3)
[2021-01-06 02:59] LABS: MCHC 30.5 % (32.0-36.0); MCV 88.3 fL (80-95); MPV 9.9 fL (8.0-11.0); Platelet Count 217 10^3/uL (130-400); RDW 17.8 % (11.7-14.6); RDW-SD 54.2 fL; WBC 6.67 10^3/uL (4.4-10.8)
[2021-01-06 03:02] LABS: HCT 20.3 % (36.0-46.0); HGB 6.2 g/dL (11.2-15.7)
--- NOTE | 2021-01-06 03:03 | NUR.NOTE ---
Nursing Note:First Unit FFP started Right AC at 100 ml/hr. Unit #[id number] with blood filter tubing via pump
--- NOTE | 2021-01-06 03:08 | NUR.NOTE ---
Nursing Note: GABE splint applied to Left arm, wrapped with soft padding prior to, and roll annette bandage to hold GABE splint in place. Pt tolerates well. Radial pulse LUE present after application.
[2021-01-06 08:33] LABS: Anisocytosis 3+; Hypochromasia 3+; Microcytosis 1+; Poikilocytes 1+
--- NOTE | 2021-01-06 11:32 | NUR.NOTE ---
Nursing Note:I spoke with Ladi at [facility] and filed a report on patients behalf r/t her visit to the ER 01/05/2021. [place] [id number]. I have left a message on the voice mail for [employer] to please call me back at the ER direct line so that I can file a report r/t my concerns r/t patient condition and possible living conditions where patient has been living for the last 20 months. Per Rhiannon Munguia she is licensed by the [facility] to have people living in her home. [employer] . Per [facility] website this agency has staff that travel all around the [facility] to inspect multiple different types of living facilities and medical facilities licensed to care for people in [place]. I have left a second message on [employer] voice mail and asked them to call me at the ER and left my cell phone number so they can call me after I leave.
--- NOTE | 2021-01-06 12:13 | NUR.NOTE ---
Nursing Note: I went to the [facility] to get patient to bring her to a room and Registration let me know her caregiver waited to give me some history. Patient was sitting in a w/c, I verified patients name and with her. The woman with Carin identified herself as Rhiannon and told me that Carin has been living with her for the past 20 months . Rhiannon asked Carin if she could share her information with me and patient shook her head yes. I asked why she brought her here tonight. Rhiannon told me she brought her here because she has sores on her legs and they have drainage coming from them. I noticed patient had black
--- NOTE | 2021-01-06 12:59 | NUR.NOTE ---
Nursing Note: Call back received from Concepcion Bobo RN. 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 I let her know I wanted to file a report about a [facility] in [place], [place] and my concerns of possible living conditions at this home r/t findings of one of it's residents when she was brought to the ER last night. I gave her the address of the home [address] [place] [address] and the name and cell phone number of the woman that owns/runs the home Rhiannon Munguia. I gave her the weight of this patient when she went to live at this home 20 months ago and the weight of patient upon arrival to the ER last PM. I let her know the reason Rhiannon brought this patient to the ER, open draining sores on her legs, not the swollen, deformed left arm that patient is not able to use. My concern that patient refused to let Rhiannon bring her to the ER 4 days ago when patient supposedly fell and injured her arm and that Rhiannon did not call 911. Another concern was that patient was dressed with multiple layers shirts, sweat shirts and a coat on her torso when she arrived that patient would not have been able to put on herself , was not cool to the touch and scanned forehead temp. was WNL and core temp obtained from temp. sensing goode inserted shortly after arrival was 31.7. I also let her know about the lomeli bite on 3 of patients 3 left fingers.
== END 2021-01-06 03:40 | disposition short-term general hospital (02) ==
PROVIDERS: Physician Assistant; Emergency Provider Emergency Medicine; PCP Nurse Practitioner
DX: S53.195A Other dislocation of left ulnohumeral joint, initial encounter (principal); W19.XXXA Unspecified fall, initial encounter; D64.9 Anemia, unspecified; I95.89 Other hypotension; S02.92XA Unspecified fracture of facial bones, initial encounter for closed fracture; X58.XXXA Exposure to other specified factors, initial encounter; Z20.822 Contact with and (suspected) exposure to COVID-19
CPT/HCPCS: 36430; 51701; 74177; 80053; 82550; 82805; 85027; 86850; 86900; 86901; 86920; 87040; 90471; 93005; 96361; 96365; 96375; 99291; 99292; 70450; 70486; 71260; 72125; 80320; 81003; 83605; 83735; 84100; 85025; 85610; 87086; 93010; J2405; J2543; J3490; P9016; P9059

== ENCOUNTER → 2023-11-10 14:07 | Outpatient (CLI) | payer MEDICAID, SELFPAY ==
--- NOTE | 2023-11-10 13:38 | DI.RAD_ITS ---
Exam(s) XR ANKLE RT COMPLETE XR ANKLE LT COMPLETE EXAM: XR ANKLE LT COMPLETE CLINICAL HISTORY: lt ankle pain, m25.572 TECHNIQUE: 2D digital imaging was performed. Three views of both ankles. COMPARISON: CR XR ANKLE RT COMPLETE from 11/10/2023 FINDINGS: BONES: No acute fracture is present. No bony destructive lesion is seen. Mild deformity of the distal right fibula could be related to an old fracture. Lucency in the left medial talar dome could repre sent a degenerative subchondral cyst. Heel spurs bilaterally. JOINTS:The ankle mortise is normally aligned bilaterally. Degenerative changes in greatest of the in tertarsal joints. SOFT TISSUE: Bilateral lower leg and ankle edema. IMPRESSION: Bilateral heel spurs. Small lucency in the left medial talar dome could indicate an degenerative subchondral cyst. DATA REPOSITORY: RADIATION DOSE DELIVERED:
== END ==
PROVIDERS: PCP Nurse Practitioner; Visit Provider Nurse Practitioner Family
DX: M25.572 Pain in left ankle and joints of left foot (principal); M25.571 Pain in right ankle and joints of right foot
CPT/HCPCS: 73610

== ENCOUNTER 2023-11-30 16:16 | Emergency (ER) | payer MEDICAID, SELFPAY ==
[2023-11-30 16:19] VITALS: BP 157/100; PULSE 69; RESP 13; TEMP 36.3; O2SAT 100
[2023-11-30 16:24] VITALS: BP 157/100; PULSE 69; RESP 13; TEMP 36.3; O2SAT 100
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
--- NOTE | 2023-11-30 17:20 | ED.PROG_ITS ---
Date of service: 11/30/23 Time of Service: 17:20 Medical Decision Making I saw the patient in conjunction with the PA. A [id number] evaluation was provided by myself. Patient is a 53-year-old female sent from urgent care for evaluation of left eye vision change. Bedside ultrasound reviewed with PA and this is concerning for an acute retinal detachment. Transfer process has been initiated. Medical Records Medical records reviewed: Yes I reviewed the patient's medical records. Quality:[facility] Health Related Social Needs: No Data to Display Discharge Plan Discharge Details Chief Complaint: EyeProblem Primary Care Provider: Adele Richmond ED Provider: Jens Ramirez Home Meds and New Rx's Prescriptions: No Action diclofenac sodium [Voltaren Arthritis Pain] 1 % gel 2 g topical ONCE PRN Rx Instructions: apply to single elbow, wrist or hand; for hand includes palm/fingers/back of hand ibuprofen 200 mg capsule 400 mg PO ONCE PRN acetaminophen [Tylenol] 325 mg capsule 650 mg PO ONCE PRN
== END 2023-11-30 18:52 | disposition home or self-care (01) ==
PROVIDERS: Emergency Provider Physician Assistant; PCP Nurse Practitioner Family
DX: H33.22 Serous retinal detachment, left eye (principal)
CPT/HCPCS: 00123; 99285

== ENCOUNTER 2023-12-26 14:06 | Outpatient (REF) | payer MEDICAID, SELFPAY ==
[2023-12-26 19:03] LABS: Abs Immature Grans 0.02 10^3/uL (0.0-0.06); Absolute Basophil Count 0.05 10^3/uL (0.0-0.2); Absolute Eosinophil Count 0.22 10^3/uL (0.0-0.7); Absolute Monocyte Count 0.45 10^3/uL (0.1-0.8); Absolute Neutrophil Count 4.08 10^3/uL (1.2-6.7); Basophils % 0.8; Eosinophils % 3.4; HCT 36.5 % (36.0-46.0); HGB 11.7 g/dL (11.2-15.7); Immature Grans % 0.3; Lymphocytes % 24.9; MCH 28.1 pg (27.0-33.0); MCHC 32.1 % (32.0-36.0); MCV 88 fL (80-95); MPV 10.1 fL (8.0-11.0); Neutrophils % 63.6; Platelet Count 282 10^3/uL (130-400); RBC 4.17 10^6/uL (3.93-5.22); RDW 14.7 % (11.7-14.6); RDW-SD 47.5 fL; WBC 6.42 10^3/uL (4.4-10.8)
[2023-12-26 19:17] LABS: ALT 20 U/L (14-59); AST 16 U/L (15-37); Alkaline Phosphatase 85 U/L (46-116); Anion Gap 9.4 mmol/L (3-11); BUN 17 mg/dL (7-18); Bilirubin, Total 0.4 mg/dL (0.2-1.0); CO2 27.6 mmol/L (21.0-32.0); CREATININE 0.7 mg/dL (0.55-1.02); Calcium 9.3 mg/dL (8.5-10.1); Chloride 106 mmol/L (98-107); Estimated GFR 103.35 (mL/min/1.73m2); Glucose 95 mg/dL (74-106); NT-proBNP 46 pg/mL (<300); Potassium 4.5 mmol/L (3.5-5.1); Sodium 143 mmol/L (136-145); Total Protein 7.2 g/dL (6.4-8.2)
[2023-12-26 19:29] LABS: Calculated LDL 70 mg/dL (<100); Cholesterol 175 mg/dL (<200); HDL Cholesterol 83 mg/dL (40-60); Triglyceride 111 mg/dL (<150)
[2023-12-26 19:46] LABS: Hemoglobin A1C 5.5 % (<5.7)
== END 2023-12-26 14:07 | disposition home or self-care (01) ==
LOC: NCHCN 14:06
PROVIDERS: PCP Nurse Practitioner Family; Visit Provider Nurse Practitioner Family
DX: Z13.220 Encounter for screening for lipoid disorders (principal); R06.09 Other forms of dyspnea
CPT/HCPCS: 80053; 80061; 83036; 83880; 85025

== ENCOUNTER → 2024-03-13 05:11 | Outpatient (CLI) | payer MEDICAID, SELFPAY ==
--- NOTE | 2024-03-13 | DI.US_ITS ---
APPROVED REPORT EXAM: Comprehensive 2D, Doppler, and color-flow Echocardiogram Patient Location: Out-Patient Corn Shredder: Janny Beckman RDCS (AE) Indications: Dyspnea Other Information Study Quality: Adequate Conclusion Normal left ventricular wall thickness and chamber size. Ejection fraction is 60 to 65%. Wall motio n is normal Normal right ventricular size and function Both atria are normal in size. There is an incidental finding of an atrial septal aneurysm There is no structural or hemodynamically significant valvular disease Wall motion Left Ventricle The left ventricle is normal size. The left ventricular systolic function is normal. The left ventric ular ejection fraction is within the normal range. There is normal left ventricular wall thickness. T here is normal LV segmental wall motion. There is no ventricular septal defect visualized. LVEF is 62 %. Right Ventricle The right ventricle is normal size. The right ventricular systolic function is normal. Atria The left atrium size is normal. The right atrium size is normal. Atrial septal aneurysm is present. Aortic Valve The aortic valve is normal in structure. Aortic valve is trileaflet. There is no aortic valvular sten osis. No aortic regurgitation is present. Mitral Valve The mitral valve is normal in structure. No evidence of mitral valve stenosis. Trace mitral regurgita tion. Tricuspid Valve The tricuspid valve is normal in structure. There is no tricuspid valve stenosis. Trace tricuspid reg urgitation. Unable to assess PA pressure. Pulmonic Valve The pulmonary valve is normal in structure. There is no pulmonic valvular stenosis. Trace pulmonic re gurgitation. Great Vessels The aortic root is normal in size. The ascending aorta is mildly dilated. Aortic arch is normal in ca liber. IVC is normal in size and collapses >50% with inspiration. Pericardium There is no pericardial effusion. 2D Dimensions IVSD d PLAX 1.03 cm F: 0.6-1.0 Ao Root d 3.29 cm F: 2.7 - 3.3 LVPW d PLAX 1.01 cm F: 0.6 - 1.0 Ao Asc Diam d 3.90 cm F: 2.3 - 3.1 LVID d PLAX 4.15 cm F: 3.8 - 5.2 LVDs 2.84 cm F: 2.2 - 3.5 LV EF Teichholz 59.7 % FS 31.43 % LV EDV (Teich) 76.2 mL LV ESV (Teich) 30.7 mL M-Mode TAPSE 2.88 cm (M/F) >1.7 Auto EF LV EDV A4C 91.8 mL LV EDV A2C 111.4 mL LV EDV BP 102.1 mL LV ESV A4C 35.0 mL LV ESV A2C 41.9 mL LV ESV BP 38.4 mL LVEF(%) A4C 61.9 % LVEF(%) A2C 62.4 % LVEF(%) BP 62.4 % LV SV A4C 56.8 ml LV SV A2C 69.5 ml LV SV BP 63.7 ml LV CO A4C 4.3 L/min LV CO A2C 5.2 L/min LV CO BP 4.7 L/min HR A4C 74.85 BPM HR A2C 74.23 BPM LV EDV Index (BP) LA Volume LA Length A4C 4.4 cm LA Length A2C 4.9 cm LA Area A4C s 14.49 cm2 LA Area A2C s 15.74 cm2 LA Vol A4C A-L 40.37 mL LA Vol A2C A-L 43.15 mL LA Vol Biplane A-L 43.9 mL LA Vol/BSA A4C A-L LA Vol/BSA A2C A-L LA Vol/BSA BP A-L 23.8 mL/m2 LA Vol A4C MOD 37.5 mL LA Vol A2C MOD 40.1 mL LA Vol BP MOD 40.7 mL RA Volume RA Area A4C 12.7 cm2 RA ESV A4C (A-L) 34.3mL RA Vol/BSA A4C A-L RA Length A4C 4.0 cm RA ESV A4C (MOD) 31.6mL LV Diastology MV E' medial 0.088 (>0.07 m/s) MV E Vmax 0.49 (0.4-1.3 m/s) MV E/E' MED 5.58 (<14) MV A Vmax 0.70 (0.4-1.3 m/s) E/A Ratio 0.7 Aortic Valve AoV Vmax 1.57 m/s LVOT Vmax 1.17 m/s AoV Peak Grad 9.8 mmHg LVOT Peak Grad 5.4 mmHg AoV Area (Vmax) 2.37 cm2 LVOT VTI 0.230 m AoV VTI 0.345 m LVOT Mean Grad 3.0 mmHg AoV Mean Keegan. 1.16 m/s LVOT SV 73.32 mL AoV Mean Grad 6.0 mmHg LVOT Diam s 2.00 cm AoV Area (VTI) 2.12 cm2 Velocity Ratio 0.75 Mitral Valve MV DT 318 (160-240 msec) MV Vmax TIPS 0.66 m/s MV Mean Grad 0.7 (<2mmHg) MV VTI 0.149 m Pulmonary Valve PV Vmax 0.98 (0.5-1.5 m/s) RVOT Vmax 0.89 m/s PV Peak Grad 3.9 mmHg RVOT Peak Gr. 3.2 mmHg PV Mean Keegan 0.80 m/s RVOT VTI 0.203 m PV Mean Grad 2.7 mmHg RVOT Mean Gr. 1.8 mmHg Tricuspid Valve RA Pressure 3.00 mmHg TV S' 0.15 m/s
--- NOTE | 2024-03-13 | DI.MAMMO_ITS ---
Exam(s) MAMMO SCREENING EXAM: MAMMO SCREENING CLINICAL HISTORY: SCREENING MAMMO FOR BREAST CANCER Z12.31 TECHNIQUE: Mammograms were interpreted according to the usual protocol including computer analysis w [employer] CAD system, tomosynthesis and C-view imaging. COMPARISON: 2010 FINDINGS: The breasts are composed of heterogeneously dense fibroglandular densities, Breast Density category C . No suspicious masses or suspicious microcalcifications are seen. There are bilateral coarse benign c alcifications. No skin thickening or abnormal axillary lymph nodes are seen. There has been no significant change from prior exams. IMPRESSION: BI-RADS Category 2 - Benign Findings Yearly screening mammography is recommended. Breast Density Category C, heterogeneously Dense. The mammogram demonstrates the patient's breast tissue is dense. Dense breast tissue is very common a nd is not abnormal but dense breast tissue can make it harder to find cancer on a mammogram. Also, de nse breast tissue may increase breast cancer risk. This information about the result of the mammogram report was provided to the patient to raise their awareness. Use this report when you speak with the patient about their risks for breast cancer, which includes their family history. At that time, you may recommend additional screening tests (Ultrasound or MRI) as they might be useful based on their r isk. A negative radiographic report should not delay biopsy if a dominant or clinically suspicious mass is present. Up to ten percent of cancers are not identified on mammography. A negative report may reinforce clinical impression. Adenosis and dense breasts may obscure an underlying neoplasm. False positive reports average 6 to 10%.
== END ==
PROVIDERS: PCP Nurse Practitioner Family; Visit Provider Nurse Practitioner Family
DX: Z12.31 Encounter for screening mammogram for malignant neoplasm of breast (principal); R06.00 Dyspnea, unspecified; Q21.10 Atrial septal defect, unspecified
CPT/HCPCS: 77063; 77067; 93306

== ENCOUNTER 2024-03-13 06:00 | Outpatient (CLI) | payer MEDICAID, SELFPAY ==
[2024-03-13] MEDS: Levalbuterol HFA 15 GM INH 4 PUFF IH (14:31)
[2024-03-13] MEDS: Inhaler, Assist Device 1 EACH MC (14:32)
--- NOTE | 2024-03-13 14:37 | W.PFT ---
Date of service: 03/13/24 Time of Service: 13:34 Pulmonary Function Test Result Indications: Dyspnea Interpretation Spirometry: There is no airflow limitation. No bronchodilator response. Lung Volumes: Normal lung volumes Diffusion Capacity: Normal diffusion Airway Pressure: Normal airways resistance Impression Normal pulmonary function testing Clinical Correlation therefore is recommended.
== END 2024-03-13 06:01 | disposition home or self-care (01) ==
LOC: RT 06:00
PROVIDERS: PCP Nurse Practitioner Family; Visit Provider Nurse Practitioner Family
DX: R06.00 Dyspnea, unspecified (principal)
CPT/HCPCS: 94060; 94726; 94729

== ENCOUNTER 2024-09-06 11:03 | Emergency (ER) | payer SELFPAY ==
[2024-09-06] VITALS (10 sets, daily range): BP systolic 137–171; BP diastolic 78–104; PULSE 53–96; RESP 12–18; TEMP 36.9; O2SAT 95–97
--- NOTE | 2024-09-06 11:00 | RT.EKG_ITS ---
APPROVED REPORT Exam: Resting ECG Reason for Exam: fall, dizziness Patient Location: E HR:71 bpm ECG Measurements Heart Rate 71 AXIS NE 213 P 27 QRSd 107 QRS -37 QT 390 T 19 QTc 424 Conclusion Sinus rhythm...normal P axis, V-rate 60- 99 Prolonged NE interval...NE >210, V-rate 50- 90 Low voltage, precordial leads...precordial leads <1.0mV Left ventricular hypertrophy...multiple LVH criteria
--- NOTE | 2024-09-06 11:41 | ED.GENADUL_ITS ---
Discharge Plan Disposition Patient Disposition: Home Condition: Stable Discharge Details Clinical Impression: Blunt head trauma, Fall, Cervical strain Primary Care Provider: Unknown,Unknown ED Provider: Elmer Luis Home Meds and New Rx's Prescriptions: Continued diclofenac sodium [Voltaren Arthritis Pain] 1 % gel 2 g topical ONCE PRN Rx Instructions: apply to single elbow, wrist or hand; for hand includes palm/fingers/back of hand ibuprofen 200 mg capsule 400 mg PO ONCE PRN acetaminophen [Tylenol] 325 mg capsule 650 mg PO ONCE PRN Discharge Instructions Additional Instructions: Your blood work and CAT scans did not show any concerning findings at this time Follow-up with your primary care provider if you are having lingering symptoms such as headaches in a week If you feel more ill, have severe worsening pain or persistent vomiting return to the emergency department for reevaluation HPI General Mode of arrival: ambulatory . Date/Time Provider Initiated Documentation: 09/06/24 11:11 . Limitations to Documentation: no limitations . Information obtained by: patient . History of Present Illness 54 year old F presents to the emergency department with the chief complaint of fall, head trauma, described as moderate, Quality is described as aching, Patient started experiencing this hour(s) (2) and it has been constant. No relieving factors improve symptom(s), No exacerbating factors reported . Patient notes denies chest pain and shortness of breath. Patient did receive the following treatments prior to arrival, none Related Data Home Medications ?Medication ?Instructions ?Recorded ?Confirmed acetaminophen 325 mg capsule 650 mg PO ONCE PRN 11/30/23 09/06/24 (Tylenol) diclofenac sodium 1 % topical gel 2 g topical ONCE PRN 11/30/23 09/06/24 (Voltaren Arthritis Pain) ibuprofen 200 mg capsule 400 mg PO ONCE PRN 11/30/23 09/06/24 Allergies Allergy/AdvReac Type Severity Reaction Status Date / Time Sulfa (Sulfonamide Allergy Intermediate Rash Unverified 09/06/24 11:12 Antibiotics) General Stated Complaint: HeadInjury JENELLE: 3 Review of Systems All systems reviewed & are unremarkable except as noted in HPI and below Constitutional Constitutional: Denies chills, Denies fever(s) and Denies weakness Eyes Eyes: Denies loss of vision Cardiovascular Cardiovascular: Denies chest pain and Denies dyspnea Respiratory Respiratory: Denies cough and Denies dyspnea Gastrointestinal Gastrointestinal: Denies abdominal pain, Reports nausea and Denies vomiting Neurologic Neurologic: Denies loss of vision and Denies weakness Psychiatric Psychiatric: Denies depression Exam Const General: no acute distress Orientation: alert HENNM Head: no palpable skull fracture Ears: external ears normal General nose exam: external nose normal Mouth: moist mucous membranes Eyes General: appearance normal, both eyes and all related structures Neck Neck: normal visual inspection and nontender Chest Chest: no tenderness Resp Effort & Inspection: normal respiratory effort and able to speak in complete sentences Auscultation: clear to auscultation bilaterally Cardio Jugular venous pressure: no JVD Rate: regular rate Heart Sounds: no murmurs GI Palpation: soft and nontender Back/Spine/Pelvis Thoracic/Lumbar Spine: No thoracic spinal tenderness and No lumbar spinal tenderness Skin General skin exam: no rashes or lesions noted Neuro General: patient alert and patient oriented x3 Extrem General: normal to inspection Psych Mental Status: mental status grossly normal Course Vital Signs Vital signs: Vital Signs Temperature 36.9 C 09/06/24 11:06 Pulse 96 H 09/06/24 11:06 Respiratory Rate 18 09/06/24 11:06 Blood Pressure 137/96 H 09/06/24 11:06 Pulse Oximetry 97 09/06/24 11:06 Temperature 36.9 C 09/06/24 11:06 Temperature Source Temporal Artery Scan 09/06/24 11:06 Pulse 96 H 09/06/24 11:06 Respiratory Rate 18 09/06/24 11:06 Blood Pressure 137/96 H 09/06/24 11:06 Blood Pressure Position Sitting 09/06/24 11:06 Pulse Oximetry 97 09/06/24 11:06 Oxygen Delivery Method Room Air 09/06/24 11:06 Oxygen Flow Rate 0 09/06/24 11:06 Pain Level 3 09/06/24 11:06 Medical Decision Making 54-year-old female comes in with head trauma. She says she was walking and stepped on a curb when she tripped and fell forward hitting her head on the ground. She did not lose consciousness but has had nausea since. She and her PCP sent her in a c-collar and referred her here. She denies any preceding symptoms from the fall, no chest pain or difficulty breathing. She has a hematoma on the right frontal scalp, no midline C-spine tenderness no chest or abdomen tenderness no back tenderness. Moving all extremities well. She is alert and oriented x 4 on arrival. Suspect mild concussion will obtain CT head and C-spine to evaluate for traumatic injuries. Labs and imaging show no acute findings. Patient stable and feels improved, no new pain elsewhere. She is stable for discharge and will follow-up with her PCP as needed and return precautions given Differential Diagnosis Differential Diagnosis: tbi, concussion ECG Data Attestation: I personally reviewed and interpreted this ECG (s) as follows: Prior ECG tracings: available for review Interpretation: sinus rate of 71 pr 213 no stemi Quality:SDOH Health Related Social Needs: No Data to Display PFSH All Active Problems (Updated 09/06/24 @ 13:13 by Elmer Luis MD) Cervical strain (Acute) Fall (Acute) Blunt head trauma (Acute) Dislocation of left elbow (Acute) Falls (Acute) Anemia (Chronic) Chronic fatigue (Acute 03/31/17) Medical History Nabothian cyst At risk for sleep apnea Daytime somnolence Rosacea Tinea pedis Koilonychia Iron deficiency anemia GERD (gastroesophageal reflux disease) Onychomycosis Edema Depression Pain, joint, knee, left Hyperlipemia Bronchitis, acute, with bronchospasm Vaginal bleeding Surgical History H/O: hysterectomy Social History Smoking/Tobacco Use Status: Never Smoking risk assessment performed?: Yes Alcohol Intake: former Drug use: Never Substance use type: does not use Do you feel safe at home: Yes Do you feel safe in your relationship?: Yes
--- NOTE | 2024-09-06 11:45 | DI.CT_ITS ---
Exam(s) CT HEAD CERVICAL SPINE WO EXAM: CT HEAD CERVICAL SPINE WO CLINICAL HISTORY: pain s/p fall. TECHNIQUE: Imaging Protocol: Axial computed tomography images with coronal and sagittal reformatted images were created and reviewed COMPARISON: CT CT HEAD CERV SPINE FACIAL WO from 01/05/2021 FINDINGS: BRAIN: There are no skull fractures nor fluid in the visualized paranasal sinuses. There is no evidence of intracranial hemorrhage, mass effect, or shift of midline structures. There are no extra-axial fluid collections. The ventricles are not enlarged or shifted and there is no blo od within the ventricular system nor within the basal cisterns. Heavily calcified pineal gland noted. CERVICAL SPINE: There is no evidence of fracture nor listhesis. No significant prevertebral soft tissue swelling. C1 arch and odontoid are intact. There is no significant disc space narrowing but there is mild degenerative anterolisthesis of C4 upo n C5 related to advanced facet arthropathy at this level. There is no facet malalignment. There is no significant facet joint malalignment. No significant osseous lesions evident. IMPRESSION: No acute intracranial findings on this noninfused CT scan of the brain. No evidence of acute cervical spine fracture, malalignment, nor acute compromise of the cervical spin al canal. Mild degenerative anterolisthesis of C4 upon C5 noted. Called by myself to ER on 09/06/2024 at 12:54 p.m. RADIATION DOSE DELIVERED: 1,207.12mGy.cm Total DLP DATA REPOSITORY: All CT scans at this facility are submitted to the National Radiology Data Registry (NRDR) Dose Index Registry (DIR) with the [employer] [place] [employer] (ACR). RADIATION OPTIMIZATION: All CT scans at this facility use at least one of these dose optimization te chniques: automated exposure control; mA and/or kV adjustment per patient size (includes targeted exa ms where dose is matched to clinical indication); or iterative reconstruction.
[2024-09-06 11:48] LABS: Abs Immature Grans 0.02 10^3/uL (0.0-0.06); Absolute Basophil Count 0.05 10^3/uL (0.0-0.2); Absolute Eosinophil Count 0.09 10^3/uL (0.0-0.7); Absolute Lymphocyte Count 1.71 10^3/uL (1.2-3.4); Absolute Monocyte Count 0.46 10^3/uL (0.1-0.8); Absolute Neutrophil Count 2.96 10^3/uL (1.2-6.7); Basophils % 0.9 %; Eosinophils % 1.7 %; HCT 38.3 % (36.0-46.0); HGB 13.1 g/dL (11.2-15.7); Immature Grans % 0.4 %; Lymphocytes % 32.3 %; MCH 31.3 pg (27.0-33.0); MCHC 34.2 % (32.0-36.0); MCV 91 fL (80-95); MPV 8.8 fL (8.0-11.0); Monocytes % 8.7 %; Platelet Count 305 10^3/uL (130-400); RBC 4.19 10^6/uL (3.93-5.22); RDW 14.1 % (11.7-14.6); RDW-SD 47.8 fL; WBC 5.29 10^3/uL (4.4-10.8)
[2024-09-06] MEDS: Acetaminophen 500 MG TAB 1000 MG PO (11:55)
[2024-09-06] MEDS: Ondansetron 4 MG/2 ML VIAL IVP (11:56)
[2024-09-06 12:15] LABS: ALT 20 U/L (14-59); AST 24 U/L (15-37); Albumin 3.9 g/dL (3.4-5.0); Alkaline Phosphatase 80 U/L (46-116); Anion Gap 7.8 mmol/L (3-11); BUN 14 mg/dL (7-18); Bilirubin, Total 0.39 mg/dL (0.2-1.0); CO2 27.2 mmol/L (21.0-32.0); CREATININE 0.7 mg/dL (0.55-1.02); Calcium 9.4 mg/dL (8.5-10.1); Chloride 106 mmol/L (98-107); Estimated GFR 102.71 (mL/min/1.73m2); Glucose 103 mg/dL (74-106); Magnesium 1.6 mg/dL (1.8-2.4); Sodium 141 mmol/L (136-145); Total Protein 8.1 g/dL (6.4-8.2)
== END 2024-09-06 13:24 | disposition home or self-care (01) ==
PROVIDERS: Emergency Provider Emergency Medicine
DX: S09.8XXA Other specified injuries of head, initial encounter (principal); S16.1XXA Strain of muscle, fascia and tendon at neck level, initial encounter; W10.1XXA Fall (on)(from) sidewalk curb, initial encounter; Y93.01 Activity, walking, marching and hiking; Y92.480 Sidewalk as the place of occurrence of the external cause
CPT/HCPCS: 80053; 93005; 96374; 99284; 70450; 72125; 83735; 85025; 93010; J2405

== ENCOUNTER 2025-03-08 22:53 | Outpatient (REF) | payer BC, SELFPAY ==
[2025-03-08 21:28] LABS: Abs Immature Grans 0.04 10^3/uL (0.0-0.06); Absolute Basophil Count 0.04 10^3/uL (0.0-0.2); Absolute Eosinophil Count 0.04 10^3/uL (0.0-0.7); Absolute Lymphocyte Count 1.21 10^3/uL (1.2-3.4); Absolute Monocyte Count 0.58 10^3/uL (0.1-0.8); Absolute Neutrophil Count 6.17 10^3/uL (1.2-6.7); Basophils % 0.5 %; Eosinophils % 0.5 %; HCT 37.4 % (36.0-46.0); HGB 12.7 g/dL (11.2-15.7); Immature Grans % 0.5 %; MCV 94 fL (80-95); MPV 9.3 fL (8.0-11.0); Monocytes % 7.2 %; Neutrophils % 76.3 %; Platelet Count 265 10^3/uL (130-400); RBC 3.97 10^6/uL (3.93-5.22); RDW 14.3 % (11.7-14.6); RDW-SD 49.3 fL; WBC 8.08 10^3/uL (4.4-10.8)
[2025-03-08 21:40] LABS: ALT 20 U/L (14-59); AST 31 U/L (15-37); Albumin 4.1 g/dL (3.4-5.0); Alkaline Phosphatase 110 U/L (46-116); Anion Gap 14.6 mmol/L (3-11); BUN 7 mg/dL (7-18); Bilirubin, Total 1.1 mg/dL (0.2-1.0); CO2 26.4 mmol/L (21.0-32.0); CREATININE 0.8 mg/dL (0.55-1.02); Calcium 9.8 mg/dL (8.5-10.1); Chloride 104 mmol/L (98-107); Glucose 107 mg/dL (74-106); Potassium 3.2 mmol/L (3.5-5.1); Sodium 145 mmol/L (136-145); Total Protein 7.7 g/dL (6.4-8.2)
== END 2025-03-08 22:54 | disposition home or self-care (01) ==
LOC: LBN 22:53
PROVIDERS: Visit Provider Physician Assistant Medical
DX: R11.2 Nausea with vomiting, unspecified (principal); R19.7 Diarrhea, unspecified
CPT/HCPCS: 80053; 85025

== ENCOUNTER 2025-09-13 09:36 | Outpatient (CLI) | payer BC, SELFPAY ==
--- NOTE | 2025-09-13 09:30 | RT.EKG_ITS ---
APPROVED REPORT Exam: Resting ECG Reason for Exam: tachycardia Patient Location: O HR:93 bpm ECG Measurements Heart Rate 93 AXIS HI 166 P -72 QRSd 105 QRS -36 QT 439 T -19 QTc 547 Conclusion Ectopic atrial rhythm...abnormal P axis, normal rate Probable left atrial enlargement...P >50mS, <-0.10mV V1 Left axis deviation...QRS axis (-30,-90) Borderline T abnormalities, diffuse leads...T flat/neg Prolonged QT interval...QTc >510mS Baseline wander in lead(s) V5
== END 2025-09-13 09:37 | disposition home or self-care (01) ==
LOC: DI.CM 09:37
PROVIDERS: Visit Provider Physician Assistant
DX: R00.0 Tachycardia, unspecified (principal); R06.02 Shortness of breath
CPT/HCPCS: 93010

== ENCOUNTER 2025-09-13 10:46 | Observation (INO) | payer BC, SELFPAY ==
[2025-09-13] VITALS (39 sets, daily range): BP systolic 110–146; BP diastolic 65–97; PULSE 75–115; RESP 18–22; TEMP 37–37.7; O2SAT 89–100
--- NOTE | 2025-09-13 11:15 | DI.RAD_ITS ---
Exam(s) XR CHEST 2V PA LATERAL EXAM: XR CHEST 2V PA LATERAL CLINICAL HISTORY: cough. TECHNIQUE: 2D digital imaging was performed. COMPARISON: CT CT CHEST/ABD/PEL W from 01/06/2021 FINDINGS: 2 views: Heart size is normal. The mediastinum is not widened. Lungs are clear. No infiltrates nor pleural effusions. Low retrocardiac density corresponds to hiatal hernia, seen on 2020 CT scan There is a fracture in the posterior aspect of the left 5th rib and in the posterior aspect of the right 8th rib. These may not be acute. I note that on CT scan of 01/06/2021 there were multiple bilateral posterior rib fractures with some displacement. There is no pneumothorax. IMPRESSION: No acute pulmonary findings.Moderate size hiatal hernia. Bilateral rib fractures which are probably not acute, given the findings on CT scan of 2020. DATA REPOSITORY: RADIATION DOSE DELIVERED:
--- NOTE | 2025-09-13 11:45 | RT.EKG_ITS ---
APPROVED REPORT Exam: Resting ECG Reason for Exam: SOB Patient Location: E HR:101 bpm ECG Measurements Heart Rate 101 AXIS [place] 183 P -70 QRSd 99 QRS -34 QT 409 T -19 QTc 513 Conclusion Sinus rhythm, rate 101 Prolonged QTc at 513ms T wave flattening precordial leads, unchanged from priors T wave inversion III, aVF, unchanged No STEMI
--- NOTE | 2025-09-13 12:19 | W.ED.GENAD ---
Discharge Plan Disposition Patient Disposition: Admit to [facility] Condition: Stable Discharge Details Clinical Impression: Hypokalemia, Hypomagnesemia Primary Care Provider: Unknown,Unknown ED Provider: Rm Camacho Home Meds and New Rx's Prescriptions: No Action diclofenac sodium [Voltaren Arthritis Pain] 1 % gel 2 g topical ONCE PRN Rx Instructions: apply to single elbow, wrist or hand; for hand includes palm/fingers/back of hand ibuprofen 200 mg capsule 400 mg PO ONCE PRN acetaminophen [Tylenol] 325 mg capsule 650 mg PO ONCE PRN HPI General Mode of arrival: ambulatory. Date/Time Provider Initiated Documentation: 09/13/25 10:47. Limitations to Documentation: no limitations. Information obtained by: patient. History of Present Illness 55 year old F presents to the emergency department with the chief complaint of Cough, described as moderate, with intensity rated at 5. Quality is described as aching, and is localized to the chest. Patient reports no radiation. Patient started experiencing this day(s) (8) and it has been constant. No relieving factors improve symptom(s), No exacerbating factors reported . Patient notes cough and fever/chills (Subjective fever). Patient did receive the following treatments prior to arrival, other (Went to urgent care, sent to ER) Related Data Home Medications Medication Instructions Recorded Confirmed acetaminophen 325 mg capsule 650 mg PO ONCE PRN 11/30/23 09/13/25 (Tylenol) diclofenac sodium 1 % topical gel 2 g topical ONCE PRN 11/30/23 09/13/25 (Voltaren Arthritis Pain) ibuprofen 200 mg capsule 400 mg PO ONCE PRN 11/30/23 09/13/25 Allergies Allergy/AdvReac Type Severity Reaction Status Date / Time Sulfa (Sulfonamide Allergy Intermediate Rash Unverified 09/13/25 11:18 Antibiotics) General Stated Complaint: RespSymp JENELLE: 3 Review of Systems Constitutional Constitutional: Reports chills, Reports fatigue, Reports fever(s) (Subjective) and Denies headache(s) ENT Ears, Nose, Mouth, and Throat: Denies headache(s), Denies nasal congestion and Denies sore throat Cardiovascular Cardiovascular: Denies chest pain and Denies dyspnea Respiratory Respiratory: Reports cough, Denies dyspnea and Reports wheezing Gastrointestinal Gastrointestinal: Reports abdominal pain (Last week, resolved), Denies melena, Denies hematochezia, Denies constipation, Reports diarrhea, Denies nausea and Denies vomiting Genitourinary Genitourinary: Denies dysuria Musculoskeletal Musculoskeletal: Denies back pain Integumentary/Breasts Skin/Breast: Denies rash Neurologic Neurologic: Denies headache(s) Endocrine Endocrine: Reports fatigue Allergic/Immunologic Allergic/Immunologic: Reports wheezing Exam Const General: cooperative, healthy appearing, comfortable and no acute distress Orientation: alert, awake and oriented x3 HENMT Head: normal to inspection, normocephalic and atraumatic Face and sinus: normal facial exam Mouth: oral mucosa abnormal (Slightly dry) Eyes Conjunctivae: conjunctivae normal Neck Neck: normal visual inspection, full ROM, no lymphadenopathy, no meningeal signs, trachea midline and supple Resp Effort & Inspection: normal respiratory effort, able to speak in complete sentences and cough (Dry) Auscultation: wheezes (Mild scattered, mostly clear with cough) Cardio Rate: regular rate Rhythm: regular rhythm GI Inspection: normal to inspection Palpation: soft, not firm, no guarding, not rigid and nontender Auscultation: normal bowel sounds Back/Spine/Pelvis Back: no CVA tenderness Skin General skin exam: no rashes or lesions noted Neuro General: patient alert, patient awake, patient oriented x3, moves all extremities and no focal motor deficits Cognition: normal cognition Speech: speech normal Gait: normal gait Motor: muscle tone normal throughout Sensory Exam: no sensory deficits noted Extrem General: normal to inspection, full ROM, capillary refill normal, no calf tenderness and normal gait Psych Appearance: grossly normal Mental Status: mental status grossly normal Course Vital Signs Vital signs: Vital Signs Temperature 37.0 C 09/13/25 11:12 Pulse 108 H 09/13/25 11:12 Respiratory Rate 20 09/13/25 11:12 Blood Pressure 117/70 09/13/25 11:12 Pulse Oximetry 96 09/13/25 11:12 Temperature 37.0 C 09/13/25 11:38 Temperature Source Tympanic 09/13/25 11:38 Pulse 99 H 09/13/25 11:57 Pulse 98 H 09/13/25 11:57 Respiratory Rate 20 09/13/25 11:38 Respiratory Effort Short of Breath 09/13/25 11:38 Respiratory Depth Normal 09/13/25 11:38 Blood Pressure 117/70 09/13/25 11:38 Pulse Oximetry 100 09/13/25 11:57 Oxygen Delivery Method Room Air 09/13/25 11:38 Oxygen Flow Rate 0 09/13/25 11:38 Pain Level 0 09/13/25 11:38 Medical Decision Making 55-year-old female who is otherwise healthy presents to the ER for of an illness that began about 8 days ago. Describes a cough, chest congestion, subjective fever and chills, that began last week. At that time she also endorsed some lower abdominal cramping but that resolved completely after about 24-48 hours. No ongoing dysuria. She has had some diarrhea and loose stool but feels like this is improving. No black tarry stools or bright red blood in her stools. Decreased appetite in general but no vomiting. Has not taken any [id number] medications for symptomatic control. She was seen in urgent care this morning and sent to the ER for further evaluation. The patient appears well, nontoxic, slightly dry. A dry cough is noted. Slight wheezing. Given her shortness of breath and cough, will obtain EKG although extreme suspicion for ACS. Will obtain routine laboratory values and obtain a urinalysis given her lower abdominal cramping last week. No ongoing dysuria. No active vomiting, patient is requesting lunch. Will give 1 L IV fluid. Will also give a single DuoNeb to help clear her wheezes. Upon reevaluation patient is resting comfortably, wheezes have resolved completely. She is eating soup without any vomiting. Laboratory values did not reveal any white count, 10.62. Sodium 135, potassium 2.0, creatinine 1.5 with a GFR of 40.90, glucose 123 magnesium 1.4 troponin of 34 urinalysis pending. In the setting of severe hyponatremia, mild hypomagnesemia, will provide 2 g IV magnesium, 40 potassium p.o. and 20 potassium IV. Fortunately she is tolerating p.o. intake. And has had no diarrhea while under my care. No acute EKG changes. Given her severe hypokalemia and the duration it would take to replenish, I will discuss observation admission with our hospitalist team for replacement and monitoring of her electrolytes. Case was discussed with Dr. August who was agreeable for admission. He will provide admission orders. Recommends testing for C. difficile, testing ordered. Standard discharge and return precautions were provided. Patient understands, is agreeable to this plan, and has no additional questions or concerns upon discharge. This documentation was generated using [employer] dictation system, please disregard any oddities of phrase or misspellings. Medical Records Medical records reviewed: Yes I reviewed the patient's medical records. Medical records narrative: Chest x-ray initially read by me and confirmed radiology as no acute pulmonary process. Lab Data Lab results reviewed: Yes I reviewed the patient's lab results. ECG Data Attestation: I personally reviewed and interpreted this ECG (s) as follows: Interpretation: Sinus rhythm, ventricular rate of 101. Prolonged QTc. Flattened T waves unchanged from prior. T wave inversions, unchanged from prior. PFSH All Active Problems (Updated 09/13/25 @ 15:24 by LORENZO Freire) Diarrhea (Acute) Hypomagnesemia (Acute) Hypokalemia (Acute) Acute kidney injury (Acute) Dislocation of left elbow (Acute) Falls (Acute) Anemia (Chronic) Chronic fatigue (Acute 03/31/17) Medical History Nabothian cyst At risk for sleep apnea Daytime somnolence Rosacea Tinea pedis Koilonychia Iron deficiency anemia GERD (gastroesophageal reflux disease) Onychomycosis Edema Depression Pain, joint, knee, left Hyperlipemia Bronchitis, acute, with bronchospasm Vaginal bleeding Surgical History H/O: hysterectomy Social History Smoking/Tobacco Use Status: Never Smoking risk assessment performed?: Yes Alcohol Intake: former Drug use: Never Substance use type: does not use Do you feel safe at home: Yes Do you feel safe in your relationship?: Yes
[2025-09-13 12:21] LABS: Abs Immature Grans 0.09 10^3/uL (0.0-0.06); HCT 34.0 % (36.0-46.0); HGB 11.6 g/dL (11.2-15.7); Immature Grans % 0.8 %; MCH 31.2 pg (27.0-33.0); MCHC 34.1 % (32.0-36.0); MCV 91 fL (80-95); MPV 10.7 fL (8.0-11.0); Platelet Count 263 10^3/uL (130-400); RBC 3.72 10^6/uL (3.93-5.22); RDW 14.9 % (11.7-14.6); RDW-SD 49.9 fL; WBC 10.62 10^3/uL (4.4-10.8)
[2025-09-13 12:24] LABS: COVID-19 PCR Negative (Negative); RSV PCR Negative (Negative)
[2025-09-13] MEDS: Albuterol/Ipratropium 3 ML UPD VIAL UPD (12:29)
[2025-09-13 12:39] LABS: ALT 15 U/L (14-59); AST 31 U/L (15-37); Albumin 2.9 g/dL (3.4-5.0); Alkaline Phosphatase 74 U/L (46-116); Anion Gap 12.2 mmol/L (3-11); BUN 9 mg/dL (7-18); Bilirubin, Total 0.8 mg/dL (0.2-1.0); CO2 30.8 mmol/L (21.0-32.0); Calcium 9.0 mg/dL (8.5-10.1); Chloride 92 mmol/L (98-107); Glucose 123 mg/dL (74-106); Sodium 135 mmol/L (136-145); Total Protein 7.6 g/dL (6.4-8.2); Troponin I 34 ng/L (<or=51)
[2025-09-13 12:42] LABS: Potassium 2.0 mmol/L (3.5-5.1)
[2025-09-13 12:56] LABS: Magnesium 1.5 mg/dL (1.8-2.4)
[2025-09-13] MEDS: Normal Saline 1,000 ML 50 ML IV (13:00)
[2025-09-13] MEDS: POTASSIUM CHLORIDE 20 MEQ/100 ML BAG 50 MEQ IV_INF ×2 (13:03→15:13)
[2025-09-13] MEDS: Potassium Chloride 20 MEQ TABCR 40 MEQ PO (13:03)
[2025-09-13] MEDS: MAGNESIUM SULFATE 1 GM/100 ML BAG IV_INF ×2 (13:21→14:24)
--- NOTE | 2025-09-13 13:49 | W.PM.HP.N ---
Date of service: 09/13/25 Time of Service: 17:00 Assessment and Plan Assessment and plan (1) Acute kidney injury: Status: Acute Assessment and plan: In setting of a prolonged diarrheal illness Will provide IV hydration Avoid nephrotoxic drugs renally dose as needed Further evaluation if does not respond to fluids likely prerenal from dehydration (2) Hypokalemia: Status: Acute Assessment and plan: Insetting of GI losses Replete magnesium Replete potassium Follow labs daily and adjust as needed (3) Hypomagnesemia: Status: Acute Assessment and plan: Replete and follow (4) Diarrhea: Status: Acute Assessment and plan: Stool sample pending No fever or reported abdominal pain Continue IV hydration and symptom management discussed with DR Neil Review of Systems All systems reviewed & are unremarkable except as noted in HPI and below PFSH All Active Problems (Updated 09/13/25 @ 15:24 by LORENZO Freire) Diarrhea (Acute) Hypomagnesemia (Acute) Hypokalemia (Acute) Acute kidney injury (Acute) Dislocation of left elbow (Acute) Falls (Acute) Anemia (Chronic) Chronic fatigue (Acute 03/31/17) Medical History Nabothian cyst At risk for sleep apnea Daytime somnolence Rosacea Tinea pedis Koilonychia Iron deficiency anemia GERD (gastroesophageal reflux disease) Onychomycosis Edema Depression Pain, joint, knee, left Hyperlipemia Bronchitis, acute, with bronchospasm Vaginal bleeding Surgical History H/O: hysterectomy Social History Smoking/Tobacco Use Status: Never Smoking risk assessment performed?: Yes Alcohol Intake: former Drug use: Never Substance use type: does not use Housing: apartment Do you feel safe at home: Yes Do you feel safe in your relationship?: Yes Meds Allergies and Home Medications Allergies Allergy/AdvReac Type Severity Reaction Status Date / Time Sulfa (Sulfonamide Allergy Intermediate Rash Unverified 09/13/25 11:18 Antibiotics) Home Medications Medication Instructions Recorded Confirmed Type acetaminophen 325 mg capsule 650 mg PO ONCE PRN 11/30/23 09/13/25 History (Tylenol) diclofenac sodium 1 % topical gel 2 g topical ONCE PRN 11/30/23 09/13/25 History (Voltaren Arthritis Pain) ibuprofen 200 mg capsule 400 mg PO ONCE PRN 11/30/23 09/13/25 History Exam Narrative Exam Narrative: Chronically ill-appearing older than stated age no acute distress head is atraumatic eyes nonicteric noninjected oral mucosas dry neck no JVD cardiovascular regular rate and rhythm respirations even and unlabored abdomen is round soft tenderness in the mid lower region. Moves all extremities equal skin with no rashes or lesions neurologic she is awake alert oriented no focal deficits psychiatric appropriate mood and affect Results Labs 09/14/25 05:52 09/14/25 05:52 Labs: Laboratory Results - last 24 hr 09/13/25 09/13/25 11:38 11:55 WBC 10.62 RBC 3.72 L Hgb 11.6 Hct 34.0 L MCV 91 MCH 31.2 MCHC 34.1 RDW 14.9 H Plt Count 263 MPV 10.7 Immature Gran % 0.8 Neutrophils % 76.4 Lymphocytes % 12.4 Monocytes % 9.7 Eosinophils % 0.0 Basophils % 0.7 Nucleated RBC % 0.0 Absolute Neutrophils 8.11 H Absolute Lymphocytes 1.32 Absolute Monocytes 1.03 H Absolute Eosinophils 0.00 Absolute Basophils 0.07 Sodium 135 L Potassium 2.0 L* Chloride 92 L Carbon Dioxide 30.8 Anion Gap 12.2 H BUN 9 Creatinine 1.5 H Est GFR (CKD-EPI 2020) 40.90 Glucose 123 H Calcium 9.0 Magnesium 1.5 L Total Bilirubin 0.8 AST 31 ALT 15 Alkaline Phosphatase 74 Troponin I 34 Total Protein 7.6 Albumin 2.9 L COVID-19 Source Nasopharynx SARS-CoV-2 (PCR) Negative Influenza Type A (PCR) Negative Influenza Type B (PCR) Negative RSV (PCR) Negative Last Vital Signs Temp 37.0 C 09/13/25 11:38 Pulse 101 H 09/13/25 13:46 Resp 20 09/13/25 11:38 BP 124/68 09/13/25 13:46 Pulse Ox 98 09/13/25 13:46 Time Spent Time spent with Patient: 55-74 minutes Time was spent: preparing to see the patient(eg.review tests), obtaining and/or reviewing separately otained hiistory, ordering medications,tests, procedures, indepentently interpreting results and counseling the patient
[2025-09-13 13:55] LABS: Troponin I 29 ng/L (<or=51)
[2025-09-13 14:26] LABS: Glucose Negative (Negative)
[2025-09-13 14:39] LABS: C & S Indicated? Yes; WBC >50 HPF (0-5)
[2025-09-13 14:58] LABS: Troponin I 29 ng/L (<or=51)
--- NOTE | 2025-09-13 15:18 | W.PC.ACHO ---
Registration Status: REG ER Primary Language: Preferred Language: Lao ED Information & Data Chief Complaint RespSymp 09/13/25 12:20 Triage Note pt with sob cough and 09/13/25 11:12 congestion onset last pt endorses chills and fever pt also states loss of appetite Medical / Surgical History (Last Reviewed 09/13/25 @ 12:22 by LORENZO Freire) Nabothian cyst At risk for sleep apnea Daytime somnolence Rosacea Tinea pedis Koilonychia Iron deficiency anemia GERD (gastroesophageal reflux disease) Onychomycosis Edema Depression Pain, joint, knee, left Hyperlipemia Bronchitis, acute, with bronchospasm Vaginal bleeding (Last Reviewed 09/13/25 @ 12:22 by LORENZO Freire) H/O: hysterectomy Most Recent Vital Signs Temperature 37.0 C 09/13/25 11:38 Temperature Source Tympanic 09/13/25 11:38 Pulse 98 H 09/13/25 15:01 Pulse 95 H 09/13/25 15:01 Respiratory Rate 20 09/13/25 11:38 Respiratory Effort Short of Breath 09/13/25 11:38 Respiratory Depth Normal 09/13/25 11:38 Blood Pressure 146/77 H 09/13/25 15:00 Blood Pressure Mean 100 09/13/25 15:00 Pulse Oximetry 97 09/13/25 15:01 Oxygen Delivery Method Room Air 09/13/25 11:38 Oxygen Flow Rate 0 09/13/25 11:38 Pain Level 0 09/13/25 11:38 Allergies Sulfa (Sulfonamide Antibiotics) Allergy (Intermediate, Unverified 09/13/25 11:18) Rash Active Medications Generic Name Dose Route Start Last Admin Trade Name Freq PRN Reason Stop Dose Admin Potassium Chloride 20 meq in 100 mls @ 50 mls/hr 09/13/25 12:45 09/13/25 15:05 IV_INF 09/13/25 16:44 Infused Q2H CHARY Infusion Sodium Chloride 1,000 mls @ 50 mls/hr 09/13/25 13:00 09/13/25 15:07 Saline 1000ml Bag IV 09/14/25 08:59 Infused INFUSION STA Infusion IV IV Catheter Type [Left Saline Lock Antecubital] IV Catheter Gauge [Left 18 Antecubital] Diagnostics 09/13/25 09/13/25 09/13/25 Range/Units 14:32 14:20 13:16 WBC (4.4-10.8) 10^3/uL RBC (3.93-5.22) 10^6/uL Hgb (11.2-15.7) g/dL Hct (36.0-46.0) % MCV (80-95) fL MCH (27.0-33.0) pg MCHC (32.0-36.0) % RDW (11.7-14.6) % Plt Count (130-400) 10^3/uL MPV (8.0-11.0) fL Immature Gran % % Neutrophils % % Lymphocytes % % Monocytes % % Eosinophils % % Basophils % % Nucleated RBC % (0.0-0.3) % Absolute Neutrophils (1.2-6.7) 10^3/uL Absolute Lymphocytes (1.2-3.4) 10^3/uL Absolute Monocytes (0.1-0.8) 10^3/uL Absolute Eosinophils (0.0-0.7) 10^3/uL Absolute Basophils (0.0-0.2) 10^3/uL Sodium (136-145) mmol/L Potassium (3.5-5.1) mmol/L Chloride (98-107) mmol/L Carbon Dioxide (21.0-32.0) mmol/L Anion Gap (3-11) mmol/L BUN (7-18) mg/dL Creatinine (0.55-1.02) mg/dL Est GFR (CKD-EPI 2020) (mL/min/1.73m2) Glucose (74-106) mg/dL Calcium (8.5-10.1) mg/dL Magnesium (1.8-2.4) mg/dL Total Bilirubin (0.2-1.0) mg/dL AST (15-37) U/L ALT (14-59) U/L Alkaline Phosphatase (46-116) U/L Troponin I 29 29 (<or=51) ng/L Total Protein (6.4-8.2) g/dL Albumin (3.4-5.0) g/dL Urine Color Dark Yellow (Yellow) Urine Clarity Cloudy (Clear) Urine pH 5.5 (5-8) Ur Specific Gifford 1.020 (1.005-1.025) Urine Protein >=300 H (Neg-Trace) mg/dL Urine Ketones 15 H (Negative) mg/dL Urine Blood Moderate H (Negative) Urine Nitrite Negative (Negative) Urine Bilirubin Small H (Negative) Urine Urobilinogen 1.0 H (Up to 0.2) mg/dL Ur Leukocyte Esterase Moderate H (Negative) Urine RBC Not Applicable Urine WBC >50 H (0-5) HPF Ur Epithelial Cells Not Applicable Urine Crystals Not Applicable Urine Bacteria Packed (Negative) HPF Urine Mucus Not Applicable Ur Culture Indicated? Yes Urine Glucose Negative (Negative) mg/dL COVID-19 Source SARS-CoV-2 (PCR) (Negative) Influenza Type A (PCR) (Negative) Influenza Type B (PCR) (Negative) RSV (PCR) (Negative) 09/13/25 09/13/25 Range/Units 11:55 11:38 WBC 10.62 (4.4-10.8) 10^3/uL RBC 3.72 L (3.93-5.22) 10^6/uL Hgb 11.6 (11.2-15.7) g/dL Hct 34.0 L (36.0-46.0) % MCV 91 (80-95) fL MCH 31.2 (27.0-33.0) pg MCHC 34.1 (32.0-36.0) % RDW 14.9 H (11.7-14.6) % Plt Count 263 (130-400) 10^3/uL MPV 10.7 (8.0-11.0) fL Immature Gran % 0.8 % Neutrophils % 76.4 % Lymphocytes % 12.4 % Monocytes % 9.7 % Eosinophils % 0.0 % Basophils % 0.7 % Nucleated RBC % 0.0 (0.0-0.3) % Absolute Neutrophils 8.11 H (1.2-6.7) 10^3/uL Absolute Lymphocytes 1.32 (1.2-3.4) 10^3/uL Absolute Monocytes 1.03 H (0.1-0.8) 10^3/uL Absolute Eosinophils 0.00 (0.0-0.7) 10^3/uL Absolute Basophils 0.07 (0.0-0.2) 10^3/uL Sodium 135 L (136-145) mmol/L Potassium 2.0 L* (3.5-5.1) mmol/L Chloride 92 L (98-107) mmol/L Carbon Dioxide 30.8 (21.0-32.0) mmol/L Anion Gap 12.2 H (3-11) mmol/L BUN 9 (7-18) mg/dL Creatinine 1.5 H (0.55-1.02) mg/dL Est GFR (CKD-EPI 2020) 40.90 (mL/min/1.73m2) Glucose 123 H (74-106) mg/dL Calcium 9.0 (8.5-10.1) mg/dL Magnesium 1.5 L (1.8-2.4) mg/dL Total Bilirubin 0.8 (0.2-1.0) mg/dL AST 31 (15-37) U/L ALT 15 (14-59) U/L Alkaline Phosphatase 74 (46-116) U/L Troponin I 34 (<or=51) ng/L Total Protein 7.6 (6.4-8.2) g/dL Albumin 2.9 L (3.4-5.0) g/dL Urine Color (Yellow) Urine Clarity (Clear) Urine pH (5-8) Ur Specific Gifford (1.005-1.025) Urine Protein (Neg-Trace) mg/dL Urine Ketones (Negative) mg/dL Urine Blood (Negative) Urine Nitrite (Negative) Urine Bilirubin (Negative) Urine Urobilinogen (Up to 0.2) mg/dL Ur Leukocyte Esterase (Negative) Urine RBC Urine WBC (0-5) HPF Ur Epithelial Cells Urine Crystals Urine Bacteria (Negative) HPF Urine Mucus Ur Culture Indicated? Urine Glucose (Negative) mg/dL COVID-19 Source Nasopharynx SARS-CoV-2 (PCR) Negative (Negative) Influenza Type A (PCR) Negative (Negative) Influenza Type B (PCR) Negative (Negative) RSV (PCR) Negative (Negative) 09/13/25 14:20 Urine Culture - Pending Urine - Reflex from Ua Intake and Output - 24 Hour Total 09/13/25 10:46 thru 09/13/25 15:07 Intake Total 1210 Balance 1210 Weight 90.718 kg Intake: IV 1210 Falls Risk Assessment History of Falls No History 09/13/25 11:38 Contributing Factors No Factors 09/13/25 11:38 Ambulatory Aids Independent 09/13/25 11:38 Tubes/Lines None 09/13/25 11:38 Gait Evaluation No gait disturbance 09/13/25 11:38 Cognition No cognitive impairment 09/13/25 11:38 Fall Total Score 0 09/13/25 11:38 Level of Risk Standard/Low Risk 09/13/25 11:38 Problems (Last Reviewed 09/13/25 @ 12:22 by LORENZO Freire) Diarrhea (Acute) Hypomagnesemia (Acute) Hypokalemia (Acute) Acute kidney injury (Acute) v v v v v v v v v Sending and/or Receiving Nurses: Please use comment section below to note any information pertinent to the patient hand-off not included above. Information / Comments: Report received from: Pt. c/o SOB,weakness, for several days, in [place], receiving IV Mg + K, dry cough, diarrhea, A/O x4, 146/77, HR 98, 97% RA, 37C, 20 RR. IRENA Stock
[2025-09-13] MEDS: Normal Saline 1,000 ML 1000 ML IV (17:15)
[2025-09-13 17:21] LABS: Anion Gap 12.1 mmol/L (3-11); BUN 10 mg/dL (7-18); CO2 26.9 mmol/L (21.0-32.0); Calcium 8.6 mg/dL (8.5-10.1); Chloride 96 mmol/L (98-107); Glucose 126 mg/dL (74-106); Sodium 135 mmol/L (136-145)
[2025-09-13 17:25] LABS: Potassium 2.5 mmol/L (3.5-5.1)
[2025-09-13] MEDS: Pantoprazole 40 MG VIAL IVP (18:20)
[2025-09-13] MEDS: Normal Saline Flush 10 ML SYR ×2 (18:24→19:44)
[2025-09-13] MEDS: POTASSIUM CHLORIDE 10 MEQ/100 ML BAG 100 MEQ IV_INF ×2 (19:43→22:57)
[2025-09-13] MEDS: Potassium Chloride 20 MEQ TABCR PO (19:43)
[2025-09-13] MEDS: Normal Saline - Diluent 50 ML VIAL IJ (20:53)
[2025-09-13] MEDS: Omnipaque 350 MG/ML 100 ML BTL IJ (20:54)
[2025-09-13] MEDS: Normal Saline Flush 10 ML SYR IVP (20:54)
--- NOTE | 2025-09-13 21:11 | DI.CT_ITS ---
Exam(s) CT ABDOMEN PELVIS W EXAM: CT ABDOMEN PELVIS W CLINICAL HISTORY: abd pain, diarrhea,. TECHNIQUE: Imaging Protocol: Axial computed tomography images with coronal and sagittal reformatted images were created and reviewed CONTRAST MATERIAL: Intravenous: Omnipaque-350 100cc Oral: None COMPARISON: CT CT THORACIC LUMBAR SPINE REC from 01/06/2021 FINDINGS: VISUALIZED LUNG BASES: No nodules nor pleural effusions evident. ABDOMEN: There is no ascites. Moderate-large hiatal hernia is noted. LIVER: There is a solitary hypodensity in the superior aspect of the right hepatic lobe subcapsular location. Appearance is probably a small incidental hemangioma. No dilated intrahepatic ducts. GALLBLADDER/BILIARY: No obvious calcified gallstones in the gallbladder lumen. The gallbladder is not distended but there is uniform enhancement of the gallbladder wall, possibly significant. CBD is not dilated. PANCREAS: No evidence of pancreatic mass nor dilatation of the pancreatic duct. SPLEEN: There is mild splenomegaly. Craniocaudal measurement of the spleen is 13.6 cm. There are no intrasplenic lesions. The splenic vein is patent. Portal vein confluence and portal vein also patent. ADRENALS: There are no significant adrenal masses. KIDNEYS: There is mild bilateral perinephric streaking. There is an exophytic cyst off the anterior cortex of the right kidney, this benign cysts measuring 3 x 2.4 cm. Not requiring further workup. A tiny 3 millimeter benign cyst is noted in the anterior cortex of the left kidney. There are no solid renal masses nor calculi nor hydronephrosis. No hydroureter. Urinary bladder wall is diffusely thickened, probably more so than can be explained by its under distension and suspect possible cystitis. ABDOMINAL AORTA: Abdominal aorta is not enlarged. LYMPH NODES:There is no retroperitoneal nor paraaortic adenopathy. ABDOMINAL WALL: No evidence of significant anterior abdominal wall nor inguinal hernia. GI: There is no evidence of bowel obstruction, free air, nor abscess. PELVIS: GI: No evidence of appendicitis.Redundant sigmoid but without evidence of significant diverticular disease. LYMPH NODES: There is no intrapelvic nor inguinal adenopathy. REPRODUCTIVE: Uterus is atrophic-small and retroverted. There are no abnormal adnexal masses. URINARY BLADDER: Uniform thickening of the bladder wall noted. OSSEOUS: No fractures nor significant osseous lesions. OTHER: In the deep subcutaneous tissues over the left hip region there is a E fluid collection with a 4 mm thickness external wall, this abnormal fluid collection measuring 5.2 cm at its widest by 10 cm AP by 12.5 cm craniocaudal. This is superficial to the gluteus musculature and tensor fascia gia. There is no evidence of prior ipsilateral hip fracture. IMPRESSION: 1. There is uniform enhancement of the gallbladder wall. No obvious calcified gallstones in the gallbladder lumen is not distended and there is no pericholecystic fluid. Correlation with any history of gallbladder symptomatology recommended. The CBD is not dilated. If clinically indicated follow-up gallbladder ultrasound can be performed. 2. Moderate size hiatal hernia noted. 3. Small 1 cm right hepatic lobe hemangioma 4. There is diffuse thickening of the urinary bladder wall. May indicate cystitis. The bladder is under distended but the amount bladder wall thickening appears more than expected even with collapsed bladder. Urinalysis recommended. There is also mild streaking around both kidneys. Workup to rule out urinary tract infection recommended. 5. Lateral left pelvic deep subcutaneous fluid collection measuring approximately 5.2 x 10.0 x 12.5 cm. Main considerations are for liquified hematoma/seroma/abscess. The subjacent left hip joint appears unremarkable. Preliminary virtual Radiology report was reviewed Final report called by myself to hospitalist 09/14/2025 at 5:30 p.m. RADIATION DOSE DELIVERED: 939.1mGy.cm Total DLP DATA REPOSITORY: All CT scans at this facility are submitted to the National Radiology Data Registry (NRDR) Dose Index Registry (DIR) with the [employer] (ACR). RADIATION OPTIMIZATION: All CT scans at this facility use at least one of these dose optimization techniques: automated exposure control; mA and/or kV adjustment per patient size (includes targeted exams where dose is matched to clinical indication); or iterative reconstruction.
--- NOTE | 2025-09-13 21:56 | DI.VRAD_ITS ---
PROCEDURE INFORMATION: Exam: CT Abdomen And Pelvis With Contrast Exam date and time: 09/13/2025 9:02 PM Age: 55 years old Clinical indication: Generalized abdominal pain, diarrhea TECHNIQUE: Imaging protocol: Computed tomography of the abdomen and pelvis with contrast. Radiation optimization: All CT scans at this facility use at least one of these dose optimization techniques: automated exposure control; mA and/or kV adjustment per patient size (includes targeted exams where dose is matched to clinical indication); or iterative reconstruction. Contrast material: [id number]; Contrast volume: 100 ml; Contrast route: INTRAVENOUS (IV); COMPARISON: CT CHEST/ABD/PEL W 01/06/2021 12:36 AM FINDINGS: Lungs: No acute infiltrate in either lung base. Mediastinum: Moderate hiatal hernia. Liver: Normal. No mass. Gallbladder and biliary ducts: Normal. No calcified stones. No ductal dilation. Pancreas: Normal. No ductal dilation. Spleen: Normal. No splenomegaly. Adrenal glands: Normal. No mass. Kidneys and ureters: 4-25 mm renal cortical stable benign simple cysts for which no follow-up imaging is recommended. No hydronephrosis. No calcified renal or ureteral stones. Stomach and bowel: No generalized ileus or bowel obstruction. No CT evidence of colitis or diverticulitis. Small amount of stool in portions of the colon. Appendix: Normal appendix. Intraperitoneal space: No free air. No significant fluid collection. Vasculature: Unremarkable. No abdominal aortic aneurysm. Lymph nodes: No enlarged lymph nodes. Urinary bladder: Under-distended urinary bladder. Reproductive: Unremarkable as visualized. Bones/joints: Mild spinal degenerative changes. Soft tissues: Small fat-containing umbilical hernia. Lateral left pelvic region subcutaneous low-density fluid collection (5 HU) with external thin wall measuring approximately 4.4 x 8.2 x 11.5 cm - considerations include seroma, liquified hematoma, or abscess. IMPRESSION: 1. No acute intra-abdominal or pelvic process. 2. No generalized ileus or bowel obstruction. 3. Small amount of stool in portions of the colon. 4. Lateral left pelvic region subcutaneous low-density fluid collection (5 HU) with external thin wall measuring approximately 4.4 x 8.2 x 11.5 cm - considerations include seroma, liquified hematoma, or abscess. 5. Moderate hiatal hernia. Dictated and Authenticated by: Gaurang Christine MD. Orderin John Mayer MD
[2025-09-14] MEDS: POTASSIUM CHLORIDE 10 MEQ/100 ML BAG 100 MEQ IV_INF ×4 (00:21→12:26)
[2025-09-14 06:56] LABS: Abs Immature Grans 0.07 10^3/uL (0.0-0.06); HCT 28.9 % (36.0-46.0); HGB 9.6 g/dL (11.2-15.7); Immature Grans % 1.0 %; MCH 30.9 pg (27.0-33.0); MCHC 33.2 % (32.0-36.0); MCV 93 fL (80-95); MPV 11.0 fL (8.0-11.0); Platelet Count 233 10^3/uL (130-400); RBC 3.11 10^6/uL (3.93-5.22); RDW 15.2 % (11.7-14.6); RDW-SD 51.8 fL; WBC 6.72 10^3/uL (4.4-10.8)
[2025-09-14 07:01] LABS: ALT 18 U/L (14-59); AST 59 U/L (15-37); Albumin 2.3 g/dL (3.4-5.0); Alkaline Phosphatase 65 U/L (46-116); Anion Gap 9.4 mmol/L (3-11); BUN 8 mg/dL (7-18); Bilirubin, Total 0.5 mg/dL (0.2-1.0); CO2 26.6 mmol/L (21.0-32.0); Calcium 8.1 mg/dL (8.5-10.1); Chloride 101 mmol/L (98-107); Glucose 115 mg/dL (74-106); Sodium 137 mmol/L (136-145); Total Protein 6.2 g/dL (6.4-8.2)
[2025-09-14 07:08] LABS: Potassium 2.9 mmol/L (3.5-5.1)
[2025-09-14 07:26] LABS: Magnesium 2.0 mg/dL (1.8-2.4)
[2025-09-14] MEDS: Pantoprazole 40 MG VIAL IVP (07:35)
[2025-09-14] MEDS: Normal Saline Flush 10 ML SYR IVP (07:35)
[2025-09-14] MEDS: Potassium Chloride 20 MEQ TABCR PO (07:36)
[2025-09-14] MEDS: POTASSIUM CHLORIDE 20 MEQ/100 ML BAG 50 MEQ IV_INF (08:51)
[2025-09-14] MEDS: Potassium Chloride 20 MEQ TABCR 40 MEQ PO ×2 (08:53→13:17)
[2025-09-14 09:13] VITALS: BP 114/66; PULSE 87; RESP 16; TEMP 36.6; O2SAT 95
[2025-09-14 10:52] LABS: EPI 027-NAP1-B1 PRESUMPTIVE NEGATIVE
--- NOTE | 2025-09-14 14:07 | W.PM.PROGNOT ---
Date of Service Date of service: 09/14/25 Time of Service: 14:07 Assessment and Plan Assessment and plan (1) Acute kidney injury: Status: Resolved Assessment and plan: pre-renal In setting of a prolonged diarrheal illness, responded to IV hydration with creatinine and GFR normalizing stable off IV fluids, continue to encourage PO fluids bmp in am (2) UTI (urinary tract infection): Status: Acute Assessment and plan: Asymptomatic culture pending. Will defer antibiotics until ID and sensitivities are resulted unless patient becomes symptomatic (3) Hypokalemia: Status: Acute Assessment and plan: Insetting of GI losses Repleted magnesium which has now normalized continue to Replete potassium Follow labs daily and adjust as needed, BMP at 1600 today (4) Hypomagnesemia: Status: Resolved Assessment and plan: Repleted, 2.0 today (5) Diarrhea: Status: Acute Assessment and plan: Stool sample pending, reports diarrhea improving negative for cdiff, positive for lactoferrin bacterial pathogens and parasites pending No fever or reported abdominal pain CT scan negative for intra-abdominal process. (6) Anemia: Status: Chronic Assessment and plan: normocytic with history of iron deficiency add iron studies (7) Discharge planning issues: Status: Acute Assessment and plan: DVT prophylaxis not indicated in observation, ambulatory medical patient not confined to bed rest. discussed with Dr Neil Subjective Subjective Patient reports: no new complaints, feels better, tolerating liquids well, tolerating a regular diet, bowel movement (initial BM was liquid but did have a soft BM after) and afebrile; denies shortness of breath Interval history since last seen: denies dysuria, frequency or urgency. no fever, hemodynamically stable. Exam Const General: cooperative, healthy appearing, comfortable and no acute distress Orientation: alert, awake and oriented x3 [facility] Head: normal to inspection, normocephalic and atraumatic Face and sinus: normal facial exam Mouth: oral mucosa abnormal (Slightly dry) Eyes Conjunctivae: conjunctivae normal Neck Neck: normal visual inspection, full ROM, no lymphadenopathy, no meningeal signs, trachea midline and supple Resp Effort & Inspection: normal respiratory effort, able to speak in complete sentences and cough (Dry) Auscultation: wheezes (Mild scattered, mostly clear with cough) Cardio Rate: regular rate Rhythm: regular rhythm GI Inspection: normal to inspection Palpation: soft, not firm, no guarding, not rigid and nontender Auscultation: normal bowel sounds Back/Spine/Pelvis Back: no CVA tenderness Skin General skin exam: no rashes or lesions noted Neuro General: patient alert, patient awake, patient oriented x3, moves all extremities and no focal motor deficits Cognition: normal cognition Speech: speech normal Gait: normal gait Motor: muscle tone normal throughout Sensory Exam: no sensory deficits noted Extrem General: normal to inspection, full ROM, capillary refill normal, no calf tenderness and normal gait Psych Appearance: grossly normal Mental Status: mental status grossly normal Objective Last Vital Signs Temp 36.6 C 09/14/25 09:13 Pulse 87 09/14/25 09:13 Resp 16 09/14/25 09:13 BP 114/66 09/14/25 09:13 Pulse Ox 95 09/14/25 09:13 Laboratory Results - last 24 hr 09/13/25 09/13/25 09/13/25 13:16 14:20 14:32 WBC RBC Hgb Hct MCV MCH MCHC RDW Plt Count MPV Immature Gran % Neutrophils % Lymphocytes % Monocytes % Eosinophils % Basophils % Nucleated RBC % Absolute Neutrophils Absolute Lymphocytes Absolute Monocytes Absolute Eosinophils Absolute Basophils VBG Lactate Sodium Potassium Chloride Carbon Dioxide Anion Gap BUN Creatinine Est GFR (CKD-EPI 2020) Glucose Calcium Magnesium Total Bilirubin AST ALT Alkaline Phosphatase Troponin I 29 29 Total Protein Albumin Urine Color Dark Yellow Urine Clarity Cloudy Urine pH 5.5 Ur Specific [place] 1.020 Urine Protein >=300 H Urine Ketones 15 H Urine Blood Moderate H Urine Nitrite Negative Urine Bilirubin Small H Urine Urobilinogen 1.0 H Ur Leukocyte Esterase Moderate H Urine RBC Not Applicable Urine WBC >50 H Ur Epithelial Cells Not Applicable Urine Crystals Not Applicable Urine Bacteria Packed Urine Mucus Not Applicable Ur Culture Indicated? Yes Urine Glucose Negative Stl C.difficile Tox PCR 09/13/25 09/14/25 09/14/25 17:04 05:52 09:50 WBC 6.72 RBC 3.11 L Hgb 9.6 L D Hct 28.9 L MCV 93 MCH 30.9 MCHC 33.2 RDW 15.2 H Plt Count 233 MPV 11.0 Immature Gran % 1.0 Neutrophils % 73.3 Lymphocytes % 14.9 Monocytes % 9.5 Eosinophils % 0.6 Basophils % 0.7 Nucleated RBC % 0.0 Absolute Neutrophils 4.92 Absolute Lymphocytes 1.00 L Absolute Monocytes 0.64 Absolute Eosinophils 0.04 Absolute Basophils 0.05 VBG Lactate 2.6 H* Sodium 135 L 137 Potassium 2.5 L* 2.9 L* Chloride 96 L 101 Carbon Dioxide 26.9 26.6 Anion Gap 12.1 H 9.4 BUN 10 8 Creatinine 1.3 H 0.9 Est GFR (CKD-EPI 2020) 48.56 75.50 Glucose 126 H 115 H Calcium 8.6 8.1 L Magnesium 2.0 Total Bilirubin 0.5 AST 59 H ALT 18 Alkaline Phosphatase 65 Troponin I Total Protein 6.2 L Albumin 2.3 L Urine Color Urine Clarity Urine pH Ur Specific [place] Urine Protein Urine Ketones Urine Blood Urine Nitrite Urine Bilirubin Urine Urobilinogen Ur Leukocyte Esterase Urine RBC Urine WBC Ur Epithelial Cells Urine Crystals Urine Bacteria Urine Mucus Ur Culture Indicated? Urine Glucose Stl C.difficile Tox PCR Negative PAWSS Have you Been Recently Intoxicated or Drunk Within the Last 30 days?: No Have you Ever Experienced Previous Episodes of Alcohol Withdrawal?: No Have you ever Experienced Withdrawal Seizures?: No Have you ever Experienced Delirium Tremens(DT)s?: No Have you ever undergone Alcohol Rehabilitation Treatment (i.e, inpt ot outpatient treatment programs)?: No Have you ever Experienced Blackouts?: No Have you ever Combined Alcohol with other Downers within the last 90 days?: No Have you ever Combined Alcohol with any other Substance of Abuse during the last 90 days?: No Positive Blood Alcohol level on Presentation? [PCS.BAL]: No Evidence of Increased Autonomic Activity (i.e. HR>120, tremor, sweating, agitation, nausea)?: No Result: 0 Time Spent with Patient Time Spent with Patient: 35-49 minutes Time was spent: preparing to see the patient(eg.review tests), obtaining and/or reviewing separately otained hiistory, ordering medications,tests, procedures, indepentently interpreting results and counseling the patient
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
[2025-09-14 16:20] LABS: Anion Gap 9.7 mmol/L (3-11); BUN 8 mg/dL (7-18); CO2 25.3 mmol/L (21.0-32.0); Calcium 8.1 mg/dL (8.5-10.1); Chloride 102 mmol/L (98-107); Glucose 103 mg/dL (74-106); Potassium 4.5 mmol/L (3.5-5.1); Sodium 137 mmol/L (136-145)
[2025-09-14 16:31] LABS: Iron 13 ug/dL (50-170); Total Iron Binding Capacity 192 ug/dL (250-450); Transferrin Sat 7 % (15-50)
[2025-09-14 16:54] LABS: Ferritin 733 ng/mL (8-252)
--- NOTE | 2025-09-14 17:41 | PDOC.CMIN ---
Date of service: 09/14/25 Time of Service: 17:42 Care Management Initial Assmt Initial Assessment Reason for Hospitalization: Hypokalemia and DEEPAK Functional Status/Living Situation Patient Presentation: Carin was sitting up in bed when CM met with her. She was very pleasant in manner and easily engaged in conversation. Carin was admitted with a cough after having a respiratory illness for about 8 days. Routine blood work revealed severe hypokalemia with a K of 2.0. This is being repleted with both IV and oral potassium. She also had a magnesium of 1.5 so that is being replaced. Carin lives alone in an apartment in [facility] with her 3 cats. She has one son who lives in [facility] who has no children. Carin is currently working at [employer] in [place]. She has been there for 3 or 4 years and really enjoys the people she works with. She feels her immediate boss and the remote sensing program manager are very supportive. Carin does not receive any services and is independent at baseline. She does use a cane as she stated that she has bad feet. Carin will need a return to work note when she is discharged. Town of Residence: [facility] Resides with: Alone (has 3 cats) Significant Other/Family: Out of area (has one son who lives in [place]) Employment Status: Employed (works at [employer] in [place]) Instrumental Activities of Daily Living (ADLs): Independent Medications Medication Management: No Issues/Barriers identified Physical Functioning/Mobility Assistive Device: cane Advance Directives Advance Directives: Do you have an Advance Directive: N 11/15/23, 10:13 AD On File at [facility]: N 11/15/23, 10:13 Date Asked 09/13/25 09/13/25, 11:00 AD Date Reviewed COLST On File at [facility] COLST Date Scanned Code Status Resuscitation Status Full Code Portal Pt does not currently have a portal and education provided: Yes Insurance Coverage/Financial Issues Insurance: [place] Care Team Visit Care Team Role Provider Type Leyla Lopez NP NURSE PRACTITIONER Unknown Unknown Primary Care Provider STAFF PHYSICIAN InPatient Pancho Sanchez Other Providers OTHER LORENZO Freire Emergency Provider PHYSICIANS TOY ELECTRIC TRAIN REPAIRER Giovani Neil Admit Provider [facility] STAFF PHYSICIAN Attending Provider Discharge Potential Discharge Needs: PCP F/U Appt Anticipated Barriers to Discharge: None Identified Patient/Family Education Needs: Review discharge instructions, discuss Ask Me Three Transportation: Private vehicle Plan: Anticipate Carin will be discharged home with no new services when medically cleared. She will follow up with her community providers and plan of care and transport with a friend/family member. CM will follow and continue to support discharge planning. Social Determinants of Health Screening Social Determinants of health last assessed in clinic: 09/14/25 Will the Patient Participate in the Screening?: Yes Do you worry about having a steady place to live?: no Problems where you live: no known problems In the past 12 months, have you had to go without electric, gas, oil or water in your home?: no 1. Within the past 12 months, we worried whether our food would run out before we got money to buy more.: Never true 2. Within the past 12 months, the food we bought just didn't last and we didn't have money to get more.: Never true Has lack of transportation kept you from medical appointments or from doing things needed for daily living?: no Has anyone in your life made you feel unsafe or unsupported?: no How hard is it for you to pay for the very basics like food, housing, medical care, and heating? Would you say it is:: Not hard at all Do you want help finding or keeping work or a job?: I do not need or want help If for any reason you need help with day-to-day activities such as bathing, preparing meals, shopping, managing finances, etc., do you get the help you need?: I don’t need any help How often do you feel lonely or isolated from those around you?: Never Do you speak a language other than [place] Citizen at home?: No PFSH All Active Problems (Updated 09/14/25 @ 14:57 by Leyla Lopez NP) Discharge planning issues (Acute) UTI (urinary tract infection) (Acute) Diarrhea (Acute) Hypokalemia (Acute) Dislocation of left elbow (Acute) Falls (Acute) Anemia (Chronic) Chronic fatigue (Acute 03/31/17) Medical History Nabothian cyst At risk for sleep apnea Daytime somnolence Rosacea Tinea pedis Koilonychia Iron deficiency anemia GERD (gastroesophageal reflux disease) Onychomycosis Edema Depression Pain, joint, knee, left Hyperlipemia Bronchitis, acute, with bronchospasm Vaginal bleeding Surgical History H/O: hysterectomy Social History Smoking/Tobacco Use Status: Never Smoking risk assessment performed?: Yes Alcohol Intake: former Drug use: Never Substance use type: does not use Housing: apartment Do you feel safe at home: Yes Do you feel safe in your relationship?: Yes
[2025-09-14 17:42] LABS: Lab Add On Test DONE
[2025-09-14 21:06] VITALS: BP 157/99; PULSE 82; RESP 20; TEMP 37.6; O2SAT 98
[2025-09-15 06:42] LABS: Abs Immature Grans 0.08 10^3/uL (0.0-0.06); HCT 29.4 % (36.0-46.0); HGB 9.6 g/dL (11.2-15.7); MCH 31.0 pg (27.0-33.0); MCHC 32.7 % (32.0-36.0); MCV 95 fL (80-95); MPV 10.8 fL (8.0-11.0); Platelet Count 326 10^3/uL (130-400); RBC 3.10 10^6/uL (3.93-5.22); RDW 15.4 % (11.7-14.6); RDW-SD 54.1 fL; WBC 6.85 10^3/uL (4.4-10.8)
[2025-09-15 07:01] LABS: RBC Morphology Normal
[2025-09-15 07:19] LABS: ALT 30 U/L (14-59); AST 84 U/L (15-37); Albumin 2.4 g/dL (3.4-5.0); Alkaline Phosphatase 79 U/L (46-116); Anion Gap 9.0 mmol/L (3-11); BUN 5 mg/dL (7-18); Bilirubin, Total 0.4 mg/dL (0.2-1.0); CO2 24.0 mmol/L (21.0-32.0); Calcium 8.5 mg/dL (8.5-10.1); Chloride 103 mmol/L (98-107); Glucose 117 mg/dL (74-106); Potassium 4.4 mmol/L (3.5-5.1); Sodium 136 mmol/L (136-145); Total Protein 6.7 g/dL (6.4-8.2)
[2025-09-15 07:28] VITALS: BP 145/96; PULSE 71; RESP 18; TEMP 36.4; O2SAT 97
[2025-09-15] MEDS: Pantoprazole 40 MG VIAL IVP (07:32)
[2025-09-15] MEDS: Normal Saline Flush 10 ML SYR IVP (07:32)
[2025-09-15 10:48] LABS: Campylobacter PCR Negative (Negative); Shiga Toxin PCR Negative (Negative); Shigella/Enteroinvasive Ecoli Negative (Negative)
--- NOTE | 2025-09-15 14:21 | W.PM.PROGNOT ---
Date of Service Date of service: 09/15/25 Time of Service: 14:22 Assessment and Plan Assessment and plan (1) UTI (urinary tract infection): Status: Acute Assessment and plan: Asymptomatic Cx - ecoli, gm neg yusra Sensitive to Nitrofurantoin - started. (2) Diarrhea: Status: Resolved Assessment and plan: Stool sample pending, formed stool today negative for cdiff, positive for lactoferrin bacterial pathogens and parasites pending No fever or reported abdominal pain CT scan : 1. No acute intra-abdominal or pelvic process. 2. No generalized ileus or bowel obstruction. 3. Small amount of stool in portions of the colon. Lateral left pelvic region subcutaneous low-density fluid collection (5 HU) with external thin wall measuring approximately 4.4 x 8.2 x 11.5 cm - considerations include seroma, liquified hematoma, or abscess. Abdominal ultrasound (previously ordered) tomorrow, 09/16 (3) Anemia: Status: Chronic Assessment and plan: normocytic with history of iron deficiency add iron studies (4) Discharge planning issues: Status: Acute Assessment and plan: DVT prophylaxis not indicated in observation, ambulatory medical patient not confined to bed rest. discussed with Dr Neil (5) Hypokalemia: Status: Resolved Assessment and plan: 4.4 Trend (6) Hypomagnesemia: Status: Resolved Assessment and plan: Trend (7) Acute kidney injury: Status: Resolved Assessment and plan: Cr 0.8 Subjective Subjective Patient reports: no new complaints, pain is less, tolerating liquids well, voiding w/o difficulty, bowel movement (formed) and afebrile; denies diarrhea, nausea or shortness of breath Interval history since last seen: Awake, alert, comfortable. States she is feeling better and knows she will be NPO after MN for US in am. Exam Const General: cooperative, healthy appearing, comfortable and no acute distress Orientation: alert, awake and oriented x3 HENMT Head: normal to inspection, normocephalic and atraumatic Face and sinus: normal facial exam Mouth: oral mucosa abnormal (Slightly dry) Eyes Conjunctivae: conjunctivae normal Neck Neck: normal visual inspection, full ROM, no lymphadenopathy, no meningeal signs, trachea midline and supple Resp Effort & Inspection: normal respiratory effort, able to speak in complete sentences and cough (Dry) Auscultation: wheezes (Mild scattered, mostly clear with cough) Cardio Rate: regular rate Rhythm: regular rhythm GI Inspection: normal to inspection Palpation: soft, not firm, no guarding, not rigid and nontender Auscultation: normal bowel sounds Back/Spine/Pelvis Back: no CVA tenderness Skin General skin exam: no rashes or lesions noted Neuro General: patient alert, patient awake, patient oriented x3, moves all extremities and no focal motor deficits Cognition: normal cognition Speech: speech normal Gait: normal gait Motor: muscle tone normal throughout Sensory Exam: no sensory deficits noted Extrem General: normal to inspection, full ROM, capillary refill normal, no calf tenderness and normal gait Psych Appearance: grossly normal Mental Status: mental status grossly normal Objective Last Vital Signs Temp 36.4 C L 09/15/25 07:28 Pulse 71 09/15/25 07:28 Resp 18 09/15/25 07:28 BP 145/96 H 09/15/25 07:28 Pulse Ox 97 09/15/25 07:28 Laboratory Results - last 24 hr 09/14/25 09/15/25 15:55 05:58 WBC 6.85 RBC 3.10 L Hgb 9.6 L Hct 29.4 L MCV 95 MCH 31.0 MCHC 32.7 RDW 15.4 H Plt Count 326 MPV 10.8 Immature Gran % See Differential Neutrophils % 67.0 Lymphocytes % 22.0 Atypical Lymphs % 2 Monocytes % 6.0 Eosinophils % 2.0 Basophils % 0.0 Metamyelocytes % 1 Nucleated RBC % 0.0 Absolute Neutrophils 4.59 Absolute Lymphocytes 1.64 Absolute Monocytes 0.41 Absolute Eosinophils 0.14 Absolute Basophils 0.00 RBC Morphology Normal Sodium 137 136 Potassium 4.5 D 4.4 Chloride 102 103 Carbon Dioxide 25.3 24.0 Anion Gap 9.7 9.0 BUN 8 5 L Creatinine 0.9 0.8 Est GFR (CKD-EPI 2020) 75.50 86.96 Glucose 103 117 H Calcium 8.1 L 8.5 Iron 13 L TIBC 192 L Transferrin % Sat 7 L Ferritin 733 H Total Bilirubin 0.4 AST 84 H ALT 30 Alkaline Phosphatase 79 Total Protein 6.7 Albumin 2.4 L Add-On Test Request DONE PAWSS Have you Been Recently Intoxicated or Drunk Within the Last 30 days?: No Have you Ever Experienced Previous Episodes of Alcohol Withdrawal?: No Have you ever Experienced Withdrawal Seizures?: No Have you ever Experienced Delirium Tremens(DT)s?: No Have you ever undergone Alcohol Rehabilitation Treatment (i.e, inpt ot outpatient treatment programs)?: No Have you ever Experienced Blackouts?: No Have you ever Combined Alcohol with other Downers within the last 90 days?: No Have you ever Combined Alcohol with any other Substance of Abuse during the last 90 days?: No Positive Blood Alcohol level on Presentation? [PCS.BAL]: No Evidence of Increased Autonomic Activity (i.e. HR>120, tremor, sweating, agitation, nausea)?: No Result: 0 Time Spent with Patient Time Spent with Patient: 25-34 minutes Time was spent: preparing to see the patient(eg.review tests), ordering medications,tests, procedures, referring, communicating with other health medicare compliance auditor, indepentently interpreting results, counseling the patient and care coordination
[2025-09-15 19:53] VITALS: BP 162/96; PULSE 87; RESP 18; TEMP 36.7; O2SAT 98
[2025-09-15] MEDS: MacroBID 100 MG CAP PO (20:46)
[2025-09-16 06:44] LABS: Abs Immature Grans 0.09 10^3/uL (0.0-0.06); HCT 31.4 % (36.0-46.0); HGB 10.3 g/dL (11.2-15.7); MCH 31.1 pg (27.0-33.0); MCHC 32.8 % (32.0-36.0); MCV 95 fL (80-95); MPV 10.3 fL (8.0-11.0); RBC 3.31 10^6/uL (3.93-5.22); RDW 15.3 % (11.7-14.6); RDW-SD 54.3 fL; WBC 7.08 10^3/uL (4.4-10.8)
[2025-09-16 07:17] LABS: Immature Grans % 0.0 %; Platelet Count 418 10^3/uL (130-400)
[2025-09-16 07:18] LABS: Anion Gap 7.8 mmol/L (3-11); BUN 3 mg/dL (7-18); CO2 26.2 mmol/L (21.0-32.0); Calcium 8.7 mg/dL (8.5-10.1); Chloride 105 mmol/L (98-107); Glucose 102 mg/dL (74-106); Magnesium 1.8 mg/dL (1.8-2.4); Potassium 4.3 mmol/L (3.5-5.1); RBC Morphology Normal; Sodium 139 mmol/L (136-145)
[2025-09-16] MEDS: Pantoprazole 40 MG VIAL IVP (07:38)
[2025-09-16] MEDS: Normal Saline Flush 10 ML SYR IVP (07:38)
[2025-09-16] MEDS: MacroBID 100 MG CAP PO (07:38)
--- NOTE | 2025-09-16 08:00 | DI.US_ITS ---
Exam(s) US ABDOMEN PELVIS EXAM: US ABDOMEN PELVIS CLINICAL HISTORY: Abn CT; pain TECHNIQUE: Ultrasound abdomen performed using standard protocol. COMPARISON: US US PELVIS TRANSVAGINAL from 10/18/[address] THORACIC LUMBAR SPINE REC from 01/06/[address] CHEST/ABD/PEL W from 01/06/[address] ABDOMEN PELVIS W from 09/13/2025 FINDINGS: ABDOMEN ABDOMINAL AORTA AND IVC: Visualized portions normal caliber. PANCREAS: Normal where visualized. LIVER: Normal. Hepatopetal flow in the Portal Vein. No evidence of a hepatic mass. The liver measures 17.6cm long. GALLBLADDER:The gallbladder is contracted. No evidence of cholelithiasis. No evidence of wall thickening. No pericholecystic fluid identified. BILIARY SYSTEM: Common bile duct measures < 7 mm. No intrahepatic biliary ductal dilation. YANEZ'S SIGN: Negative. KIDNEYS: Kidneys are symmetric in size. No evidence of renal calculi. No evidence of hydronephrosis. There is a simple cyst seen in the right kidney anteriorly. It measures 2.8 cm maximally. No follow-up is recommended. SPLEEN: Not enlarged. ASCITES: None seen. SOFT TISSUES: Free fluid: There is a 13.2 x 1.8 x 6.9 cm encapsulated fluid collection in the left hip lateral to the femur. This was present on the CT scan from 09/13/2025. There is an echogenic focus seen internally. Differential considerations include resolving hematoma or abscess. There is a 4.4 x 0.4 x 5.8 cm simple fluid collection seen lateral to the right hip. It does not appear to be encapsulated. IMPRESSION: 1. There is no evidence of cholelithiasis or acute cholecystitis. 2. No acute abdominal process. 3. 13.2 x 1.8 x 6.9 cm encapsulated fluid collection lateral to the left femur. This may represent a resolving hematoma or abscess. Please correlate clinically. 4. Small amount of simple fluid adjacent to the right hip. DATA REPOSITORY:
[2025-09-16 08:09] VITALS: BP 165/92; PULSE 77; RESP 16; TEMP 36.5; O2SAT 100
--- NOTE | 2025-09-16 10:23 | PDOC.CMPRO ---
Date of service: 09/16/25 Time of Service: 10:23 Care Management Progress Note Discharge Potential Discharge Needs: PCP F/U Appt Anticipated Barriers to Discharge: None Identified Patient/Family Education Needs: Review discharge instructions, discuss Ask Me Three Transportation: Private vehicle Plan: Anticipate Carin will be discharged home with no new services when medically cleared. She will follow up with her community providers and plan of care and transport with a friend/family member. CM will follow and continue to support discharge planning. Social Determinants of Health Screening Social Determinants of health last assessed in clinic: 09/14/25 Will the Patient Participate in the Screening?: Yes Do you worry about having a steady place to live?: no Problems where you live: no known problems In the past 12 months, have you had to go without electric, gas, oil or water in your home?: no Has lack of transportation kept you from medical appointments or from doing things needed for daily living?: no Has anyone in your life made you feel unsafe or unsupported?: no How hard is it for you to pay for the very basics like food, housing, medical care, and heating? Would you say it is:: Not hard at all Do you want help finding or keeping work or a job?: I do not need or want help If for any reason you need help with day-to-day activities such as bathing, preparing meals, shopping, managing finances, etc., do you get the help you need?: I don’t need any help How often do you feel lonely or isolated from those around you?: Never Do you speak a language other than [place] at home?: No
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
--- NOTE | 2025-09-16 13:15 | PDOC.CMDIS ---
Date of service: 09/16/25 Time of Service: 13:15 LACE Index Scoring Tool Questions: Length of Stay (in days): 3 Was the patient admitted via the E.D.?: Yes E.D. Visits: 1 Answers: Total Score: 7 Risk of Readmission: Low Risk Care Management Discharge Plan Reason for Hospitalization: Luli Discharge Plan: Carin will be discharged home with no new services. She will follow up with her PCP and plan of care and transport with a friend. CM provided Carin with a return to work letter at her request. Patient/Family Education Needs: Review of discharge instructions, limitations, follow up plan and discuss Ask Me Three
== END 2025-09-16 14:16 | disposition home or self-care (01) ==
LOC: ER 15:24 → MS 09-14 17:30
PROVIDERS: Nurse Practitioner Acute Care; Admitting Provider Family Medicine; Emergency Provider Physician Assistant; Responsible Provider Nurse Practitioner Family; Visit Provider Family Medicine
DX: N17.9 Acute kidney failure, unspecified (principal); E83.42 Hypomagnesemia; E87.6 Hypokalemia; N39.0 Urinary tract infection, site not specified; R19.7 Diarrhea, unspecified; D50.9 Iron deficiency anemia, unspecified; G47.19 Other hypersomnia; K21.9 Gastro-esophageal reflux disease without esophagitis; F32.A Depression, unspecified; E86.0 Dehydration; B95.1 Streptococcus, group B, as the cause of diseases classified elsewhere
CPT/HCPCS: 00123; 36415; 80048; 80053; 87015; 87077; 87269; 87272; 87505; 87637; 93005; 94640; 96365; 96366; 97161; 99285; 71046; 74177; 76700; 76856; 81003; 81015; 82728; 83540; 83550; 83605; 83630; 83735; 84484; 85025; 87086; 87186; 93010; 99222; 99231; 99232; 99239; G0378; J2470; J3475; J3480; J3490; J7620

== ENCOUNTER 2025-09-21 09:17 | Observation (INO) | payer BC, SELFPAY ==
[2025-09-21] VITALS (8 sets, daily range): BP systolic 129–161; BP diastolic 83–105; PULSE 71–107; RESP 16–20; TEMP 36.5–36.9; O2SAT 96–100
--- NOTE | 2025-09-21 09:30 | RT.EKG_ITS ---
APPROVED REPORT Exam: Resting ECG Reason for Exam: tachycardia Patient Location: E HR:79 bpm ECG Measurements Heart Rate 79 AXIS NJ 211 P 13 QRSd 100 QRS -31 QT 416 T -1 QTc 478 Conclusion Sinus rhythm...normal P axis, V-rate 60- 99 Prolonged NJ interval...NJ >210, V-rate 50- 90 Probable left atrial enlargement...P >50mS, <-0.10mV V1 Left axis deviation...QRS axis (-30,-90) Low voltage, precordial leads...precordial leads <1.0mV No STEMI
--- NOTE | 2025-09-21 10:15 | DI.RAD_ITS ---
Exam(s) XR CHEST 2V PA LATERAL EXAM: XR CHEST 2V PA LATERAL CLINICAL HISTORY: fever TECHNIQUE: 2D digital imaging was performed of the chest. Two images were obtained. PA and lateral views were obtained. COMPARISON: CR XR CHEST 2V PA LATERAL from 09/13/2025 FINDINGS: MEDIASTINUM: There is a hiatal hernia present. HEART: Normal. PULMONARY VASCULATURE: Normal. LUNGS: Clear. PLEURAL SPACE: No pleural effusion or pneumothorax. BONE:Within normal limits for the patient's age. OTHER FINDINGS:Normal. IMPRESSION: No acute pulmonary findings. DATA REPOSITORY: RADIATION DOSE DELIVERED:
[2025-09-21] MEDS: Normal Saline 1,000 ML 1000 ML IV (10:36)
[2025-09-21] MEDS: ACETAMINOPHEN 1,000 MG/100 ML BAG 400 MG IVPB (10:36)
[2025-09-21] MEDS: Ipratropium 0.5 MG/2.5 ML UPD VIAL UPD (10:37)
[2025-09-21] MEDS: Ketorolac 15 MG/ML VIAL IM (10:37)
[2025-09-21 10:46] LABS: Abs Immature Grans 0.07 10^3/uL (0.0-0.06); HCT 38.7 % (36.0-46.0); HGB 12.4 g/dL (11.2-15.7); Immature Grans % 1.2 %; MCH 30.4 pg (27.0-33.0); MCHC 32.0 % (32.0-36.0); MCV 95 fL (80-95); MPV 9.0 fL (8.0-11.0); Platelet Count 544 10^3/uL (130-400); RBC 4.08 10^6/uL (3.93-5.22); RDW 15.3 % (11.7-14.6); RDW-SD 53.3 fL; WBC 5.64 10^3/uL (4.4-10.8)
[2025-09-21] MEDS: Lactated Ringers 1,000 ML 1000 ML IV ×2 (11:07→12:50)
[2025-09-21 11:14] LABS: ALT 17 U/L (14-59); AST 18 U/L (15-37); Albumin 3.6 g/dL (3.4-5.0); Alkaline Phosphatase 98 U/L (46-116); Anion Gap 15.5 mmol/L (3-11); BUN 8 mg/dL (7-18); Bilirubin, Total 0.2 mg/dL (0.2-1.0); CO2 24.5 mmol/L (21.0-32.0); Calcium 9.1 mg/dL (8.5-10.1); Chloride 102 mmol/L (98-107); Glucose 91 mg/dL (74-106); Magnesium 1.8 mg/dL (1.8-2.4); Potassium 3.3 mmol/L (3.5-5.1); Sodium 142 mmol/L (136-145); Total Protein 8.4 g/dL (6.4-8.2); Troponin I 20 ng/L (<or=51)
[2025-09-21] MEDS: Potassium Chloride 20 MEQ TABCR 40 MEQ PO (12:00)
--- NOTE | 2025-09-21 12:15 | DI.CT_ITS ---
Exam(s) CT ABDOMEN PELVIS W EXAM: CT ABDOMEN PELVIS W CLINICAL HISTORY: +uti, with elevated lactate TECHNIQUE: Imaging Protocol: Axial computed tomography images with coronal and sagittal reformatted images were created and reviewed. CONTRAST MATERIAL: Intravenous: Omnipaque 350 Contrast volume:75 mL Oral: No COMPARISON: CT CT CHEST/ABD/PEL W from 01/06/[address] THORACIC LUMBAR SPINE REC from 01/06/[address] ABDOMEN PELVIS W from 09/13/2025 FINDINGS: ABDOMEN: Lung Bases: There is a moderate size hiatal hernia. There are filling defects seen in branches of the pulmonary arteries to the right lower lobe consistent with pulmonary emboli. Liver: Normal density. There are no suspicious hepatic masses. Portal, Superior Mesenteric, and Splenic Veins: Unremarkable. Gallbladder and Biliary Tract: No radiodense calculus or dilation. Pancreas: Normal density, no abnormal calcifications or inflammatory process. Spleen: Normal. Adrenals: No masses seen. Kidneys: Normal size, contour and axis. No radiodense stones or obstructive uropathy. There is a cyst seen in the right kidney. No follow-up is recommended. There is a tiny hypodensity seen in the left kidney. It is too small for further characterization but likely reflects a small cyst. No follow- up is recommended. There is a question of mild heterogeneous enhancement particularly in the upper pole of the left kidney. This can be seen with a pyelonephritis. There is no evidence of a suspicious renal mass. Abdominal Aorta: Abdominal portion non-dilated. Atherosclerotic calcification is present. Bowel: No obstruction or bowel wall thickening. Appendix is unremarkable. Peritoneal Cavity: No ascites, collection or mesenteric inflammatory response. No free air. Lymph Nodes: Within normal limits. Bones: Within normal limits for the patient's age. Soft Tissues: There has been no significant change in the fluid collection in the subcutaneous tissues adjacent to the left hip. PELVIS: Bladder: Symmetric distention, no gross wall thickening. Reproductive Organs: Unremarkable as visualized. Lymph Nodes: Within normal limits. Bones: Within normal limits for the patient's age. IMPRESSION: 1. Right lower lobe pulmonary emboli. Chest CT angiography is recommended for further evaluation. 2. Mild heterogeneity in the enhancement pattern of the left kidney which can be seen with pyelonephritis. 3. Findings were discussed with Dr. Cool at 1:25 p.m. on 09/21/2025. RADIATION DOSE DELIVERED: 834.79mGy.cm Total DLP DATA REPOSITORY: All CT scans at this facility are submitted to the National Radiology Data Registry (NRDR) Dose Index Registry (DIR) with the [employer] (ACR). RADIATION OPTIMIZATION: All CT scans at this facility use at least one of these dose optimization techniques: automated exposure control; mA and/or kV adjustment per patient size (includes targeted exams where dose is matched to clinical indication); or iterative reconstruction.
[2025-09-21 12:34] LABS: Troponin I 19 ng/L (<or=51)
[2025-09-21] MEDS: Normal Saline - Diluent 50 ML VIAL IJ ×2 (12:51→14:36)
[2025-09-21] MEDS: Normal Saline Flush 10 ML SYR IVP ×2 (12:51→14:36)
[2025-09-21] MEDS: Omnipaque 350 MG/ML 100 ML BTL IJ ×2 (12:52→14:35)
--- NOTE | 2025-09-21 13:15 | DI.CT_ITS ---
Exam(s) CT CHEST PE CTA EXAM: CT CHEST PE CTA CLINICAL HISTORY: PE. TECHNIQUE: Imaging Protocol: Axial CT angiography was performed with multi- slice acquisition and multi-planar and/or 3D reconstructions. Lung Computer Aided Detection (CAD) was utilized. CONTRAST MATERIAL: Intravenous: Omnipaque 350 contrast volume:75 mL COMPARISON: CT CT THORACIC LUMBAR SPINE REC from 01/06/[address] CHEST/ABD/PEL W from 01/06/2021 CR XR CHEST 2V PA LATERAL from 09/21/[address] ABDOMEN PELVIS W from 09/21/2025 FINDINGS: Tracheobronchial tree: Patent where visualized. No bronchiectasis. Pulmonary parenchyma: There is atelectasis in the right lower lobe. There are no focal consolidating infiltrates present. No architectural distortion. Pulmonary Arteries: Filling defects seen in branches of the right lower lobe consistent with pulmonary emboli. There is no saddle embolus. Mediastinum and Shital: No dominant adenopathy or fluid collection. The esophagus is unremarkable. There is a moderate size hiatal hernia. Visualized thyroid gland: There is a 1.6 cm calcified right thyroid nodule. Nonemergent thyroid ultrasound should be considered for further evaluation. Pleura: No effusion or pneumothorax. Heart: The heart is not dilated. No coronary artery calcifications are seen. No pericardial effusion. The RV to LV ratio is less than 1. Aorta: Thoracic aorta non-dilated. No evidence of dissection. Mild atherosclerotic calcification is present. Upper abdomen: Please see the report on the CT scan of the abdomen and pelvis from earlier in the day. Soft tissues: Unremarkable. Bones: Within normal limits for the patient's age. IMPRESSION: 1. Pulmonary emboli in the right lower lobe. There is no evidence of right heart failure. 2. Dependent atelectasis in the right lung base. No focal consolidation. 3. 1.6 cm calcified right thyroid nodule. Nonemergent thyroid ultrasound is recommended for further evaluation. Unexpected findings RADIATION DOSE DELIVERED: 196.84mGy.cm Total DLP DATA REPOSITORY: All CT scans at this facility are submitted to the National Radiology Data Registry (NRDR) Dose Index Registry (DIR) with the [employer] (ACR). RADIATION OPTIMIZATION: All CT scans at this facility use at least one of these dose optimization techniques: automated exposure control; mA and/or kV adjustment per patient size (includes targeted exams where dose is matched to clinical indication); or iterative reconstruction.
[2025-09-21 13:20] LABS: Glucose Negative (Negative)
--- NOTE | 2025-09-21 13:52 | W.PM.HP.N ---
Date of service: 09/21/25 Time of Service: 14:06 Assessment and Plan Assessment and plan (1) Pulmonary embolism: Status: Chronic Assessment and plan: Compromise per CT pain to the right lower lung Eliquis 10 mg twice daily x 10 doses then 5 mg twice daily to complete 90 days of therapy–follow-up as per PCP Consider completing lower extremity ultrasound (2) Pyelonephritis: Status: Acute Assessment and plan: Pyelonephritis status post UTI treated with Macrobid for uncomplicated UTI Now on ceftriaxone as previous urine culture grew E. coli sensitive to ceftriaxone Consider renal US and urology consult but there was no increase in creatinine or hydronephrosis on the report (3) Hyperlactatemia: Status: Acute Assessment and plan: Increased lactic acid without meeting severe sepsis criteria Will trend lactic acid This could have been as well dehydration or infectious process Will administer slow IV fluid (4) Discharge planning issues: Status: Acute Assessment and plan: Discharged on Eliquis prescription sent to pharmacy for care management to verify kwan Discussed with Dr. Chaparro History of Present Illness Narrative: This 55 yo female patient with w PMHx of recent admission for DEEPAK, UTI and discharged home on nitrofurantoin on 09/13 presented to the ED for evaluation of increased tiredness over 2 past 2 days , fogginess, chills,dizziness, dry non-productive cough and upper airway congestion. Work up in the ED was positive for left sided pyeloneohritis,hyperllactemia w/o leukocytosis at per CT of the abdomen pelvis. Also suspicion of right sided pulmonary emboli on this noncontrast CT with pending confirmation as per CTA. No positive findings on UA reported but her previous urine culture had grown E. coli that was only resistant to ampicillin and Augmentin. Blood work was unremarkable except for lactic acid at 2.5 and repeat at 3.1; and hypokalemia 3.3. Ceftriaxone was initiated in the ED and the patient admitted to the medical surgical floor by the hospitalist team. Denies: Change in vision, headache, chest pain, nausea, diarrhea, Hx of renal stones or frequent UTI, GIB or brain bleed, aneurysm. Reports: vomiting s/p coughing spell w/o hematemesis and no further GI symptoms. Full code status confirmed Review of Systems All systems reviewed & are unremarkable except as noted in HPI and below PFSH All Active Problems (Updated 09/21/25 @ 14:12 by Jane Reed APRN) Lactic acidosis (Acute) Hyperlactatemia (Acute) Discharge planning issues (Acute) Pyelonephritis (Acute) Pulmonary embolism (Chronic) Cholecystitis (Acute) UTI (urinary tract infection) (Acute) Dislocation of left elbow (Acute) Falls (Acute) Chronic fatigue (Acute 03/31/17) Medical History Nabothian cyst At risk for sleep apnea Daytime somnolence Rosacea Tinea pedis Koilonychia Iron deficiency anemia GERD (gastroesophageal reflux disease) Onychomycosis Edema Depression Pain, joint, knee, left Hyperlipemia Bronchitis, acute, with bronchospasm Vaginal bleeding Surgical History H/O: hysterectomy Social History Smoking/Tobacco Use Status: Never Smoking risk assessment performed?: Yes Alcohol Intake: former Drug use: Never Substance use type: does not use Housing: apartment Do you feel safe at home: Yes Do you feel safe in your relationship?: Yes Meds Allergies and Home Medications Allergies Allergy/AdvReac Type Severity Reaction Status Date / Time Sulfa (Sulfonamide Allergy Intermediate Rash Verified 09/21/25 14:18 Antibiotics) Home Medications Medication Instructions Recorded Confirmed Type acetaminophen 325 mg capsule 650 mg PO ONCE PRN 11/30/23 09/21/25 History (Tylenol) diclofenac sodium 1 % topical gel 2 g topical ONCE PRN 11/30/23 09/21/25 History (Voltaren Arthritis Pain) ibuprofen 200 mg capsule 400 mg PO ONCE PRN 11/30/23 09/21/25 History nitrofurantoin 100 mg PO BID #12 caps 09/16/25 09/21/25 Rx monohydrate/macrocrystals 100 mg capsule (Macrobid) rivaroxaban 15 mg tablet 15 mg PO DAILY #60 tabs 09/21/25 Rx Exam Narrative Exam Narrative: Gen: Comfortable w/o acute distress, congruent mood and affect, moist mucous membranes, non-icteric sclera Neuro: Alert and oriented x4, neurologically intact Resp: Non-labored breathing, lungs are clear to auscultation bilaterally Heart: Regular S1, S2 , no murmur Abdomen: non- distended, soft and non-tender : No CVA tenderness Ext: minimal trace edema to LEs L> R Results Labs 09/21/25 10:32 09/21/25 10:32 Labs: Laboratory Results - last 24 hr 09/21/25 09/21/25 09/21/25 10:32 10:32 10:32 WBC 5.64 RBC 4.08 Hgb 12.4 Hct 38.7 MCV 95 MCH 30.4 MCHC 32.0 RDW 15.3 H Plt Count 544 H MPV 9.0 Immature Gran % 1.2 Neutrophils % 68.0 Lymphocytes % 17.4 Monocytes % 6.9 Eosinophils % 5.3 Basophils % 1.2 Nucleated RBC % 0.0 Absolute Neutrophils 3.83 Absolute Lymphocytes 0.98 L Absolute Monocytes 0.39 Absolute Eosinophils 0.30 Absolute Basophils 0.07 VBG Lactate 2.5 H* Sodium 142 Potassium 3.3 L Chloride 102 Carbon Dioxide 24.5 Anion Gap 15.5 H BUN 8 Creatinine 0.9 Est GFR (CKD-EPI 2020) 75.50 Glucose 91 Calcium 9.1 Magnesium 1.8 Cancelled Total Bilirubin 0.2 AST 18 ALT 17 Alkaline Phosphatase 98 Troponin I Cancelled 20 Total Protein 8.4 H Albumin 3.6 Urine Color Urine Clarity Urine pH Ur Specific [place] Urine Protein Urine Ketones Urine Blood Urine Nitrite Urine Bilirubin Urine Urobilinogen Ur Leukocyte Esterase Urine Glucose 09/21/25 09/21/25 12:03 13:10 WBC RBC Hgb Hct MCV MCH MCHC RDW Plt Count MPV Immature Gran % Neutrophils % Lymphocytes % Monocytes % Eosinophils % Basophils % Nucleated RBC % Absolute Neutrophils Absolute Lymphocytes Absolute Monocytes Absolute Eosinophils Absolute Basophils VBG Lactate 3.1 H* Sodium Potassium Chloride Carbon Dioxide Anion Gap BUN Creatinine Est GFR (CKD-EPI 2020) Glucose Calcium Magnesium Total Bilirubin AST ALT Alkaline Phosphatase Troponin I 19 Total Protein Albumin Urine Color Yellow Urine Clarity Clear Urine pH 6.0 Ur Specific [place] 1.010 Urine Protein Negative Urine Ketones Trace H Urine Blood Negative Urine Nitrite Negative Urine Bilirubin Negative Urine Urobilinogen 0.2 Ur Leukocyte Esterase Negative Urine Glucose Negative Last Vital Signs Temp 36.5 C 09/21/25 10:42 Pulse 71 09/21/25 11:00 Resp 18 09/21/25 11:00 BP 141/84 H 09/21/25 11:00 Pulse Ox 98 09/21/25 11:00 Time Spent Time spent with Patient: >75 minutes Time was spent: preparing to see the patient(eg.review tests), obtaining and/or reviewing separately otained hiistory, ordering medications,tests, procedures, referring, communicating with other health acute care physical therapist, indepentently interpreting results, counseling the patient, care coordination and other
--- NOTE | 2025-09-21 14:12 | ED.GENADUL_ITS ---
Discharge Plan Discharge Details Chief Complaint: GenMedical Primary Care Provider: Unknown,Unknown ED Provider: Wolfgang Cool Home Meds and New Rx's Prescriptions: No Action diclofenac sodium [Voltaren Arthritis Pain] 1 % gel 2 g topical ONCE PRN Rx Instructions: apply to single elbow, wrist or hand; for hand includes palm/fingers/back of hand ibuprofen 200 mg capsule 400 mg PO ONCE PRN acetaminophen [Tylenol] 325 mg capsule 650 mg PO ONCE PRN nitrofurantoin monohyd/m-cryst [Macrobid] 100 mg Capsule 100 mg PO BID Qty: 12 0RF HPI General Date/Time Provider Initiated Documentation: 09/21/25 09:20 . HPI Narrative: MDM/Narrative: Initial Assessment: 55-year-old female with generalized malaise, worsening post- hospital admission. Differential Diagnosis: - Bacterial pneumonia: Obtain chest x-ray. - Persistent electrolyte abnormalities: Recent hypokalemia. Labs including lactic acid, metabolic panel, CBC. - Urosepsis: Known UTI treated with Macrobid. Upgrade antibiotic to ceftriaxone. ED Course: - Administered i.v. fluids and i.v. Tylenol. - Labs: Mild hypokalemia (3.4) and lactic acid (2.6), repeat lactate 3.1 after i.v. fluids. - Imaging: Abdomen obtained, chest x-ray shows no acute infiltrates, CT reviewed by Dr. Taylor, concern for left-sided pyelonephritis and possible PE. - Ordered CT PE study of chest, obtained blood cultures. Final Assessment: Minimal improvement after i.v. fluids and Tylenol. Labs show mild hypokalemia and elevated lactic acid. Imaging suggests left-sided pyelonephritis and possible PE. Upgraded antibiotic to ceftriaxone. Recommend inpatient admission. Clinical Impression: - Lactic acidosis - Left-sided pyelonephritis - Pulmonary embolism Disposition: Admit to MDR H. This document was created with assistance from [employer]. The patient consented to its use. HPI: The patient is a 55-year-old female with a recent history of hypokalemia and urinary tract infection (UTI), presenting with generalized malaise and exacerbation of symptoms following hospital discharge. She was discharged 3 days ago with diagnoses of respiratory viral syndrome, hypokalemia, and UTI, and was prescribed Nitrofurantoin (Macrobid). Initially, she experienced symptomatic relief for 2 days, but subsequently developed fatigue and pyrexia last night. Her symptoms have progressively worsened today, necessitating further evaluation. She reports a persistent cough and ongoing fatigue. The patient denies experiencing emesis, chest pain, hemoptysis, dysuria, diarrhea, abdominal pain, or any other new symptoms. ROS: Negative besides as mentioned above Exam: Vital signs: Reviewed. General Appearance: Alert and oriented. No acute distress. HEENT: NCAT, EOMI, not icteric. External ears normal. No rhinorrhea. Moist mucous membranes. Neck: Supple, full range of motion, no observable masses, No meningeal sign. Respiratory: Frequent cough. Cardiovascular: RRR, no edema. Gastrointestinal: Soft, nondistended, No rebound tenderness. Back: No midline tenderness to palpation or palpable step-offs of the C/T/L spine. Skin: Warm and dry, no rash. Neurological: Normal Gait, Grossly intact. Psychiatric: Appropriate for situation. Labs: 09/21/25 14:05 Blood Blood Culture - Pending 09/21/25 14:11 Blood Blood Culture - Pending Laboratory Tests Range/Units 09/21/25 09/21/25 09/21/25 10:32 10:32 10:32 WBC (4.4-10.8) 10^3/uL 5.64 RBC (3.93-5.22) 10^6/uL 4.08 Hgb (11.2-15.7) g/dL 12.4 Hct (36.0-46.0) % 38.7 MCV (80-95) fL 95 MCH (27.0-33.0) pg 30.4 MCHC (32.0-36.0) % 32.0 RDW (11.7-14.6) % 15.3 H Plt Count (130-400) 10^3/uL 544 H MPV (8.0-11.0) fL 9.0 Immature Gran % % 1.2 Neutrophils % % 68.0 Lymphocytes % % 17.4 Monocytes % % 6.9 Eosinophils % % 5.3 Basophils % % 1.2 Nucleated RBC % (0.0-0.3) % 0.0 Absolute Neutrophils (1.2-6.7) 10^3/uL 3.83 Absolute Lymphocytes (1.2-3.4) 10^3/uL 0.98 L Absolute Monocytes (0.1-0.8) 10^3/uL 0.39 Absolute Eosinophils (0.0-0.7) 10^3/uL 0.30 Absolute Basophils (0.0-0.2) 10^3/uL 0.07 VBG Lactate (<or=2.0) mmol/L 2.5 H* Sodium (136-145) mmol/L 142 Potassium (3.5-5.1) mmol/L 3.3 L Chloride (98-107) mmol/L 102 Carbon Dioxide (21.0-32.0) mmol/L 24.5 Anion Gap (3-11) mmol/L 15.5 H BUN (7-18) mg/dL 8 Creatinine (0.55-1.02) mg/dL 0.9 Est GFR (CKD-EPI 2020) (mL/min/1.73m2) 75.50 Glucose (74-106) mg/dL 91 Calcium (8.5-10.1) mg/dL 9.1 Magnesium (1.8-2.4) mg/dL 1.8 Cancelled Total Bilirubin (0.2-1.0) mg/dL 0.2 AST (15-37) U/L 18 ALT (14-59) U/L 17 Alkaline Phosphatase (46-116) U/L 98 Troponin I Cancelled 20 Total Protein (6.4-8.2) g/dL 8.4 H Albumin (3.4-5.0) g/dL 3.6 Urine Color (Yellow) Urine Clarity (Clear) Urine pH (5-8) Ur Specific [place] (1.005-1.025) Urine Protein (Neg-Trace) mg/dL Urine Ketones (Negative) mg/dL Urine Blood (Negative) Urine Nitrite (Negative) Urine Bilirubin (Negative) Urine Urobilinogen (Up to 0.2) mg/dL Ur Leukocyte Esterase (Negative) Urine Glucose (Negative) mg/dL Range/Units 09/21/25 09/21/25 12:03 13:10 WBC (4.4-10.8) 10^3/uL RBC (3.93-5.22) 10^6/uL Hgb (11.2-15.7) g/dL Hct (36.0-46.0) % MCV (80-95) fL MCH (27.0-33.0) pg MCHC (32.0-36.0) % RDW (11.7-14.6) % Plt Count (130-400) 10^3/uL MPV (8.0-11.0) fL Immature Gran % % Neutrophils % % Lymphocytes % % Monocytes % % Eosinophils % % Basophils % % Nucleated RBC % (0.0-0.3) % Absolute Neutrophils (1.2-6.7) 10^3/uL Absolute Lymphocytes (1.2-3.4) 10^3/uL Absolute Monocytes (0.1-0.8) 10^3/uL Absolute Eosinophils (0.0-0.7) 10^3/uL Absolute Basophils (0.0-0.2) 10^3/uL VBG Lactate (<or=2.0) mmol/L 3.1 H* Sodium (136-145) mmol/L Potassium (3.5-5.1) mmol/L Chloride (98-107) mmol/L Carbon Dioxide (21.0-32.0) mmol/L Anion Gap (3-11) mmol/L BUN (7-18) mg/dL Creatinine (0.55-1.02) mg/dL Est GFR (CKD-EPI 2020) (mL/min/1.73m2) Glucose (74-106) mg/dL Calcium (8.5-10.1) mg/dL Magnesium (1.8-2.4) mg/dL Total Bilirubin (0.2-1.0) mg/dL AST (15-37) U/L ALT (14-59) U/L Alkaline Phosphatase (46-116) U/L Troponin I 19 Total Protein (6.4-8.2) g/dL Albumin (3.4-5.0) g/dL Urine Color (Yellow) Yellow Urine Clarity (Clear) Clear Urine pH (5-8) 6.0 Ur Specific [place] (1.005-1.025) 1.010 Urine Protein (Neg-Trace) mg/dL Negative Urine Ketones (Negative) mg/dL Trace H Urine Blood (Negative) Negative Urine Nitrite (Negative) Negative Urine Bilirubin (Negative) Negative Urine Urobilinogen (Up to 0.2) mg/dL 0.2 Ur Leukocyte Esterase (Negative) Negative Urine Glucose (Negative) mg/dL Negative Radiology: Exam(s) CT ABDOMEN PELVIS W EXAM: CT ABDOMEN PELVIS W CLINICAL HISTORY: +uti, with elevated lactate TECHNIQUE: Imaging Protocol: Axial computed tomography images with coronal and sagittal reformatted images were created and reviewed. CONTRAST MATERIAL: Intravenous: Omnipaque 350 Contrast volume:75 mL Oral: No COMPARISON: CT CT CHEST/ABD/PEL W from 01/06/[address] THORACIC LUMBAR SPINE REC from 01/06/[address] ABDOMEN PELVIS W from 09/13/2025 FINDINGS: ABDOMEN: Lung Bases: There is a moderate size hiatal hernia. There are filling defects seen in branches of the pulmonary arteries to the right lower lobe consistent with pulmonary emboli. Liver: Normal density. There are no suspicious hepatic masses. Portal, Superior Mesenteric, and Splenic Veins: Unremarkable. Gallbladder and Biliary Tract: No radiodense calculus or dilation. Pancreas: Normal density, no abnormal calcifications or inflammatory process. Spleen: Normal. Adrenals: No masses seen. Kidneys: Normal size, contour and axis. No radiodense stones or obstructive uropathy. There is a cyst seen in the right kidney. No follow-up is recommended. There is a tiny hypodensity seen in the left kidney. It is too small for further characterization but likely reflects a small cyst. No follow- up is recommended. There is a question of mild heterogeneous enhancement particularly in the upper pole of the left kidney. This can be seen with a pyelonephritis. There is no evidence of a suspicious renal mass. Abdominal Aorta: Abdominal portion non-dilated. Atherosclerotic calcification is present. Bowel: No obstruction or bowel wall thickening. Appendix is unremarkable. Peritoneal Cavity: No ascites, collection or mesenteric inflammatory response. No free air. Lymph Nodes: Within normal limits. Bones: Within normal limits for the patient's age. Soft Tissues: There has been no significant change in the fluid collection in the subcutaneous tissues adjacent to the left hip. PELVIS: Bladder: Symmetric distention, no gross wall thickening. Reproductive Organs: Unremarkable as visualized. Lymph Nodes: Within normal limits. Bones: Within normal limits for the patient's age. IMPRESSION: 1. Right lower lobe pulmonary emboli. Chest CT angiography is recommended for further evaluation. 2. Mild heterogeneity in the enhancement pattern of the left kidney which can be seen with pyelonephritis. 3. Findings were discussed with Dr. Cool at 1:25 p.m. on 09/21/2025. Related Data Home Medications Medication Instructions Recorded Confirmed acetaminophen 325 mg capsule 650 mg PO ONCE PRN 09/13/25 (Tylenol) diclofenac sodium 1 % topical gel 2 g topical ONCE PRN 11/30/23 09/13/25 (Voltaren Arthritis Pain) ibuprofen 200 mg capsule 400 mg PO ONCE PRN 11/30/23 09/13/25 nitrofurantoin 100 mg PO BID #12 caps 09/16 monohydrate/macrocrystals 100 mg capsule (Macrobid) Previous Rx's Medication Instructions Recorded nitrofurantoin 100 mg PO BID #12 caps 09/16 monohydrate/macrocrystals 100 mg capsule (Macrobid) Allergies Allergy/AdvReac Type Severity Reaction Status Date / Time Sulfa (Sulfonamide Allergy Intermediate Rash Verified 09/21/25 14:18 Antibiotics) General Stated Complaint: GenMedical JENELLE: 3 Course Vital Signs Vital signs: Vital Signs Temperature 36.5 C 09/21/25 09:23 Pulse 107 H 09/21/25 09:23 Respiratory Rate 18 09/21/25 09:23 Blood Pressure 132/86 09/21/25 09:23 Pulse Oximetry 96 09/21/25 09:23 Temperature 36.5 C 09/21/25 10:42 Pulse 71 09/21/25 11:00 Pulse 72 09/21/25 11:00 Respiratory Rate 18 09/21/25 11:00 Respiratory Effort Normal 09/21/25 10:42 Respiratory Depth Normal 09/21/25 10:42 Respiratory Pattern Normal 09/21/25 10:42 Blood Pressure 141/84 H 09/21/25 11:00 Blood Pressure Mean 100 09/21/25 11:00 Pulse Oximetry 98 09/21/25 11:00 Lab/Test Results Lab/Test Results: 09/21/25 13:32 Blood Blood Culture - Pending 09/21/25 13:32 Blood Blood Culture - Pending Laboratory Tests Range/Units 09/21/25 09/21/25 09/21/25 10:32 10:32 10:32 WBC (4.4-10.8) 10^3/uL 5.64 RBC (3.93-5.22) 10^6/uL 4.08 Hgb (11.2-15.7) g/dL 12.4 Hct (36.0-46.0) % 38.7 MCV (80-95) fL 95 MCH (27.0-33.0) pg 30.4 MCHC (32.0-36.0) % 32.0 RDW (11.7-14.6) % 15.3 H Plt Count (130-400) 10^3/uL 544 H MPV (8.0-11.0) fL 9.0 Immature Gran % % 1.2 Neutrophils % % 68.0 Lymphocytes % % 17.4 Monocytes % % 6.9 Eosinophils % % 5.3 Basophils % % 1.2 Nucleated RBC % (0.0-0.3) % 0.0 Absolute Neutrophils (1.2-6.7) 10^3/uL 3.83 Absolute Lymphocytes (1.2-3.4) 10^3/uL 0.98 L Absolute Monocytes (0.1-0.8) 10^3/uL 0.39 Absolute Eosinophils (0.0-0.7) 10^3/uL 0.30 Absolute Basophils (0.0-0.2) 10^3/uL 0.07 VBG Lactate (<or=2.0) mmol/L 2.5 H* Sodium (136-145) mmol/L 142 Potassium (3.5-5.1) mmol/L 3.3 L Chloride (98-107) mmol/L 102 Carbon Dioxide (21.0-32.0) mmol/L 24.5 Anion Gap (3-11) mmol/L 15.5 H BUN (7-18) mg/dL 8 Creatinine (0.55-1.02) mg/dL 0.9 Est GFR (CKD-EPI 2020) (mL/min/1.73m2) 75.50 Glucose (74-106) mg/dL 91 Calcium (8.5-10.1) mg/dL 9.1 Magnesium (1.8-2.4) mg/dL 1.8 Cancelled Total Bilirubin (0.2-1.0) mg/dL 0.2 AST (15-37) U/L 18 ALT (14-59) U/L 17 Alkaline Phosphatase (46-116) U/L 98 Troponin I Cancelled 20 Total Protein (6.4-8.2) g/dL 8.4 H Albumin (3.4-5.0) g/dL 3.6 Urine Color (Yellow) Urine Clarity (Clear) Urine pH (5-8) Ur Specific [place] (1.005-1.025) Urine Protein (Neg-Trace) mg/dL Urine Ketones (Negative) mg/dL Urine Blood (Negative) Urine Nitrite (Negative) Urine Bilirubin (Negative) Urine Urobilinogen (Up to 0.2) mg/dL Ur Leukocyte Esterase (Negative) Urine Glucose (Negative) mg/dL Range/Units 09/21/25 09/21/25 12:03 13:10 WBC (4.4-10.8) 10^3/uL RBC (3.93-5.22) 10^6/uL Hgb (11.2-15.7) g/dL Hct (36.0-46.0) % MCV (80-95) fL MCH (27.0-33.0) pg MCHC (32.0-36.0) % RDW (11.7-14.6) % Plt Count (130-400) 10^3/uL MPV (8.0-11.0) fL Immature Gran % % Neutrophils % % Lymphocytes % % Monocytes % % Eosinophils % % Basophils % % Nucleated RBC % (0.0-0.3) % Absolute Neutrophils (1.2-6.7) 10^3/uL Absolute Lymphocytes (1.2-3.4) 10^3/uL Absolute Monocytes (0.1-0.8) 10^3/uL Absolute Eosinophils (0.0-0.7) 10^3/uL Absolute Basophils (0.0-0.2) 10^3/uL VBG Lactate (<or=2.0) mmol/L 3.1 H* Sodium (136-145) mmol/L Potassium (3.5-5.1) mmol/L Chloride (98-107) mmol/L Carbon Dioxide (21.0-32.0) mmol/L Anion Gap (3-11) mmol/L BUN (7-18) mg/dL Creatinine (0.55-1.02) mg/dL Est GFR (CKD-EPI 2020) (mL/min/1.73m2) Glucose (74-106) mg/dL Calcium (8.5-10.1) mg/dL Magnesium (1.8-2.4) mg/dL Total Bilirubin (0.2-1.0) mg/dL AST (15-37) U/L ALT (14-59) U/L Alkaline Phosphatase (46-116) U/L Troponin I 19 Total Protein (6.4-8.2) g/dL Albumin (3.4-5.0) g/dL Urine Color (Yellow) Yellow Urine Clarity (Clear) Clear Urine pH (5-8) 6.0 Ur Specific [place] (1.005-1.025) 1.010 Urine Protein (Neg-Trace) mg/dL Negative Urine Ketones (Negative) mg/dL Trace H Urine Blood (Negative) Negative Urine Nitrite (Negative) Negative Urine Bilirubin (Negative) Negative Urine Urobilinogen (Up to 0.2) mg/dL 0.2 Ur Leukocyte Esterase (Negative) Negative Urine Glucose (Negative) mg/dL Negative PFSH All Active Problems (Updated 09/21/25 @ 14:12 by Jane Reed APRN) Lactic acidosis (Acute) Hyperlactatemia (Acute) Discharge planning issues (Acute) Pyelonephritis (Acute) Pulmonary embolism (Chronic) Cholecystitis (Acute) UTI (urinary tract infection) (Acute) Dislocation of left elbow (Acute) Falls (Acute) Chronic fatigue (Acute 03/31/17) Medical History Nabothian cyst At risk for sleep apnea Daytime somnolence Rosacea Tinea pedis Koilonychia Iron deficiency anemia GERD (gastroesophageal reflux disease) Onychomycosis Edema Depression Pain, joint, knee, left Hyperlipemia Bronchitis, acute, with bronchospasm Vaginal bleeding Surgical History H/O: hysterectomy Social History Smoking/Tobacco Use Status: Never Smoking risk assessment performed?: Yes Alcohol Intake: former Drug use: Never Substance use type: does not use Housing: apartment Do you feel safe at home: Yes Do you feel safe in your relationship?: Yes
[2025-09-21] MEDS: cefTRIAXone 2 GM/50 ML BAG IVPB (15:16)
[2025-09-21] MEDS: FLU Vaccine TS 2025-26 PF (36MOS UP) 45 MCG/0.5 ML SYR IM (15:57)
--- NOTE | 2025-09-21 16:13 | W.PC.ACHO ---
Registration Status: ADM LLUVIA Primary Language: Preferred Language: Azeri ED Information & Data Chief Complaint GenMedical 09/21/25 14:15 Triage Note Pt complaining feeling warm, 09/21/25 09:23 congestion, coughing, sneezing for 2 days. Pt recently discharge from here . Medical / Surgical History (Last Reviewed 09/13/25 @ 12:22 by LORENZO Freire) Nabothian cyst At risk for sleep apnea Daytime somnolence Rosacea Tinea pedis Koilonychia Iron deficiency anemia GERD (gastroesophageal reflux disease) Onychomycosis Edema Depression Pain, joint, knee, left Hyperlipemia Bronchitis, acute, with bronchospasm Vaginal bleeding (Last Reviewed 09/13/25 @ 12:22 by LORENZO Freire) H/O: hysterectomy Most Recent Vital Signs Temperature 36.7 C 09/21/25 15:37 Pulse 85 09/21/25 15:37 Pulse Rhythm Regular 09/21/25 15:37 Pulse 72 09/21/25 11:00 Respiratory Rate 20 09/21/25 15:37 Respiratory Effort Normal 09/21/25 15:37 Respiratory Depth Normal 09/21/25 15:37 Respiratory Pattern Normal 09/21/25 15:37 Blood Pressure 161/102 H 09/21/25 15:37 Blood Pressure Mean 100 09/21/25 11:00 Pulse Oximetry 100 09/21/25 15:37 Oxygen Delivery Method Room Air 09/21/25 15:37 Oxygen Flow Rate 0 09/21/25 15:37 Allergies Sulfa (Sulfonamide Antibiotics) Allergy (Intermediate, Verified 09/21/25 14:18) Rash Precautions Isolation Standard precaution 09/21/25 10:42 Active Medications Generic Name Dose Route Start Last Admin Trade Name Freq PRN Reason Stop Dose Admin Iohexol 100 ml 09/21/25 14:45 09/21/25 14:35 Omnipaque 350 Mg/Ml 100 Ml Btl IJ 10/21/25 23:59 75 ml DIRECTED CHARY Administration Sodium Chloride 0 ml 09/21/25 14:34 09/21/25 14:36 Normal Saline Flush 10 Ml Syr IVP 10 ml PRN PRN Administration Sodium Chloride 50 ml 09/21/25 14:45 09/21/25 14:36 Normal Saline - Diluent 50 Ml Vial IJ 50 ml DIRECTED CHARY Administration IV IV Catheter Type [Right Saline Lock Antecubital] IV Catheter Gauge [Right 18 Antecubital] Diet Orders Category Date Time Status Regular/Normal [DIET] Nutrition 09/21/25 Dinner Active Diagnostics 09/21/25 09/21/25 09/21/25 Range/Units 13:10 12:03 10:32 WBC (4.4-10.8) 10^3/uL RBC (3.93-5.22) 10^6/uL Hgb (11.2-15.7) g/dL Hct (36.0-46.0) % MCV (80-95) fL MCH (27.0-33.0) pg MCHC (32.0-36.0) % RDW (11.7-14.6) % Plt Count (130-400) 10^3/uL MPV (8.0-11.0) fL Immature Gran % % Neutrophils % % Lymphocytes % % Monocytes % % Eosinophils % % Basophils % % Nucleated RBC % (0.0-0.3) % Absolute Neutrophils (1.2-6.7) 10^3/uL Absolute Lymphocytes (1.2-3.4) 10^3/uL Absolute Monocytes (0.1-0.8) 10^3/uL Absolute Eosinophils (0.0-0.7) 10^3/uL Absolute Basophils (0.0-0.2) 10^3/uL VBG Lactate 3.1 H* (<or=2.0) mmol/L Sodium (136-145) mmol/L Potassium (3.5-5.1) mmol/L Chloride (98-107) mmol/L Carbon Dioxide (21.0-32.0) mmol/L Anion Gap (3-11) mmol/L BUN (7-18) mg/dL Creatinine (0.55-1.02) mg/dL Est GFR (CKD-EPI 2020) (mL/min/1.73m2) Glucose (74-106) mg/dL Calcium (8.5-10.1) mg/dL Magnesium (1.8-2.4) mg/dL Total Bilirubin (0.2-1.0) mg/dL AST (15-37) U/L ALT (14-59) U/L Alkaline Phosphatase (46-116) U/L Troponin I 19 20 Total Protein 8.4 H (6.4-8.2) g/dL Albumin 3.6 (3.4-5.0) g/dL Urine Color Yellow (Yellow) Urine Clarity Clear (Clear) Urine pH 6.0 (5-8) Ur Specific [place] 1.010 (1.005-1.025) Urine Protein Negative (Neg-Trace) mg/dL Urine Ketones Trace H (Negative) mg/dL Urine Blood Negative (Negative) Urine Nitrite Negative (Negative) Urine Bilirubin Negative (Negative) Urine Urobilinogen 0.2 (Up to 0.2) mg/dL Ur Leukocyte Esterase Negative (Negative) Urine Glucose Negative (Negative) mg/dL 09/21/25 09/21/25 Range/Units 10:32 10:32 WBC 5.64 (4.4-10.8) 10^3/uL RBC 4.08 (3.93-5.22) 10^6/uL Hgb 12.4 (11.2-15.7) g/dL Hct 38.7 (36.0-46.0) % MCV 95 (80-95) fL MCH 30.4 (27.0-33.0) pg MCHC 32.0 (32.0-36.0) % RDW 15.3 H (11.7-14.6) % Plt Count 544 H (130-400) 10^3/uL MPV 9.0 (8.0-11.0) fL Immature Gran % 1.2 % Neutrophils % 68.0 % Lymphocytes % 17.4 % Monocytes % 6.9 % Eosinophils % 5.3 % Basophils % 1.2 % Nucleated RBC % 0.0 (0.0-0.3) % Absolute Neutrophils 3.83 (1.2-6.7) 10^3/uL Absolute Lymphocytes 0.98 L (1.2-3.4) 10^3/uL Absolute Monocytes 0.39 (0.1-0.8) 10^3/uL Absolute Eosinophils 0.30 (0.0-0.7) 10^3/uL Absolute Basophils 0.07 (0.0-0.2) 10^3/uL VBG Lactate 2.5 H* (<or=2.0) mmol/L Sodium 142 (136-145) mmol/L Potassium 3.3 L (3.5-5.1) mmol/L Chloride 102 (98-107) mmol/L Carbon Dioxide 24.5 (21.0-32.0) mmol/L Anion Gap 15.5 H (3-11) mmol/L BUN 8 (7-18) mg/dL Creatinine 0.9 (0.55-1.02) mg/dL Est GFR (CKD-EPI 2020) 75.50 (mL/min/1.73m2) Glucose 91 (74-106) mg/dL Calcium 9.1 (8.5-10.1) mg/dL Magnesium Cancelled 1.8 (1.8-2.4) mg/dL Total Bilirubin 0.2 (0.2-1.0) mg/dL AST 18 (15-37) U/L ALT 17 (14-59) U/L Alkaline Phosphatase 98 (46-116) U/L Troponin I Cancelled Total Protein (6.4-8.2) g/dL Albumin (3.4-5.0) g/dL Urine Color (Yellow) Urine Clarity (Clear) Urine pH (5-8) Ur Specific [place] (1.005-1.025) Urine Protein (Neg-Trace) mg/dL Urine Ketones (Negative) mg/dL Urine Blood (Negative) Urine Nitrite (Negative) Urine Bilirubin (Negative) Urine Urobilinogen (Up to 0.2) mg/dL Ur Leukocyte Esterase (Negative) Urine Glucose (Negative) mg/dL 09/21/25 14:05 Blood Culture - Pending Blood 09/21/25 14:11 Blood Culture - Pending Blood Intake and Output - 24 Hour Total 09/21/25 09:17 thru 09/21/25 15:37 Intake Total 2099 Balance 2100 Weight 91.6 kg Intake: IV 2100 Other: Urine Appearance Clear Falls Risk Assessment History of Falls No History 09/21/25 15:37 Contributing Factors No Factors 09/21/25 15:37 Ambulatory Aids Independent 09/21/25 15:37 Tubes/Lines None 09/21/25 15:37 Gait Evaluation No gait disturbance 09/21/25 15:37 Cognition No cognitive impairment 09/21/25 15:37 Fall Total Score 0 09/21/25 15:37 Level of Risk Standard/Low Risk 09/21/25 15:37 Problems (Last Reviewed 09/13/25 @ 12:22 by LORENZO Freire) Lactic acidosis (Acute) Hyperlactatemia (Acute) Discharge planning issues (Acute) Pyelonephritis (Acute) Pulmonary embolism (Chronic) Attestation Statement: By documenting the first initial, last name, and credentials of the reporting nurse below, both parties acknowledge that all relevant information regarding the patient handoff has been communicated, and that all questions have been addressed to ensure continuity and safety of care. Additional Patient Information/Comments: Pt arrived to the unit at 1530. Report Received From: Nicole @[id number]
[2025-09-21] MEDS: Lactated Ringers 1,000 ML 125 ML IV (17:29)
[2025-09-21] MEDS: Apixaban 5 MG TAB 10 MG PO (17:30)
[2025-09-22] MEDS: Lactated Ringers 1,000 ML 125 ML IV ×2 (01:18→09:53)
[2025-09-22 05:03] VITALS: BP 158/88; PULSE 83; RESP 18; TEMP 36.8; O2SAT 95
[2025-09-22 06:43] LABS: Abs Immature Grans 0.06 10^3/uL (0.0-0.06); HCT 29.3 % (36.0-46.0); HGB 9.8 g/dL (11.2-15.7); Immature Grans % 1.2 %; MCH 32.1 pg (27.0-33.0); MCHC 33.4 % (32.0-36.0); MCV 96 fL (80-95); MPV 9.0 fL (8.0-11.0); Platelet Count 430 10^3/uL (130-400); RBC 3.05 10^6/uL (3.93-5.22); RDW 15.8 % (11.7-14.6); RDW-SD 55.6 fL; WBC 5.19 10^3/uL (4.4-10.8)
[2025-09-22 06:51] LABS: Anion Gap 8.7 mmol/L (3-11); BUN 6 mg/dL (7-18); CO2 26.3 mmol/L (21.0-32.0); Calcium 8.2 mg/dL (8.5-10.1); Chloride 105 mmol/L (98-107); Glucose 93 mg/dL (74-106); Potassium 4.1 mmol/L (3.5-5.1); Sodium 140 mmol/L (136-145)
[2025-09-22 07:32] VITALS: BP 145/88; PULSE 73; RESP 16; TEMP 36.6; O2SAT 97
[2025-09-22] MEDS: Apixaban 5 MG TAB 10 MG PO ×2 (07:39→20:47)
[2025-09-22] MEDS: Normal Saline Flush 10 ML SYR IVP ×2 (07:40→20:47)
[2025-09-22 11:01] VITALS: BP 125/89; PULSE 88; RESP 18; TEMP 36.6; O2SAT 97
--- NOTE | 2025-09-22 12:11 | PDOC.CMIN ---
Date of service: 09/22/25 Time of Service: 12:12 Care Management Initial Assmt Initial Assessment Reason for Hospitalization: PE, Pyelonephritis Functional Status/Living Situation Patient Presentation: Carin was sitting up in bed and awake when CM met with her. Carin was admitted 09/13/25 for hypokalemia and DEEPAK, she was treated medically and discharged on 09/16/25. Carin presented to the ED yesterday generalized malaise and exacerbation of symptoms following hospital discharge. Per report, Ultrasound to rule out DVT scheduled for tomorrow. Carin is pleasant and willing to engage in conversation. She resides in [place] with her three cats (Windsor, Mittens, and Noir). She has one son who lives in [facility]. Carin reports being independent at baseline and utilizes the [employer] bus as her primary means of transportation. She does not currently receive any home or community-based services. Carin will require a [id number] note upon discharge. She will also need to begin a new anticoagulant; CM is coordinating with the provider to identify an affordable option. Carin expressed openness to considering a natural remedy if no affordable anticoagulant options are available. Cairn reports she has an established primary care provider and a follow-up appointment scheduled for October 22; however, she is unsure which provider the appointment is with. CM will follow up to confirm details. Town of Residence: [facility] Resides with: Alone (3 cats) Significant Other/Family: Out of area Natural Supports: Friends Cristal and Ronald Employment Status: Employed (works at [employer] in [place]) Instrumental Activities of Daily Living (ADLs): Independent Medications Medication Management: No Issues/Barriers identified Physical Functioning/Mobility Assistive Device: Cane for bad feet Advance Directives Advance Directives: Do you have an Advance Directive: N 11/15/23, 10:13 AD On File at [facility]: N 11/15/23, 10:13 Date Asked 09/21/25 09/21/25, 09:27 AD Date Reviewed COLST On File at [facility] COLST Date Scanned Code Status Resuscitation Status Full Code Portal Pt does not currently have a portal and education provided: Yes Insurance Coverage/Financial Issues Insurance: /[facility] - [id number] Care Team Visit Care Team Role Provider Type Leyla Lopez NP NURSE PRACTITIONER Unknown Unknown Primary Care Provider STAFF PHYSICIAN Yogesh Paul MD Other Providers [facility] STAFF PHYSICIAN Wolfgang Cool MD Emergency Provider [facility] STAFF PHYSICIAN Modesto Chaparro MD Admit Provider [facility] STAFF PHYSICIAN Attending Provider Discharge Potential Discharge Needs: PCP F/U Appt Anticipated Barriers to Discharge: None Identified Patient/Family Education Needs: Review discharge instructions, discuss Ask Me Three Transportation: Private vehicle Plan: anticipate Carin will be discharged once medically ready with no new services indicated at this time. It is recommended she follow up with her community providers and discharge plan of care. Follow up appointment will need to be schuduled with tdoc Erickson Hernandez. She will transport via private vehicle. CM will follow. Social Determinants of Health Screening Social Determinants of health last assessed in clinic: 09/22/25 Will the Patient Participate in the Screening?: Yes Do you worry about having a steady place to live?: no Problems where you live: no known problems In the past 12 months, have you had to go without electric, gas, oil or water in your home?: no 1. Within the past 12 months, we worried whether our food would run out before we got money to buy more.: Never true 2. Within the past 12 months, the food we bought just didn't last and we didn't have money to get more.: Never true Has lack of transportation kept you from medical appointments or from doing things needed for daily living?: no Has anyone in your life made you feel unsafe or unsupported?: no How hard is it for you to pay for the very basics like food, housing, medical care, and heating? Would you say it is:: Not hard at all Do you want help finding or keeping work or a job?: I do not need or want help If for any reason you need help with day-to-day activities such as bathing, preparing meals, shopping, managing finances, etc., do you get the help you need?: I don’t need any help How often do you feel lonely or isolated from those around you?: Never Do you speak a language other than Burkinan at home?: No PFSH All Active Problems (Updated 09/21/25 @ 14:12 by Jane Reed APRN) Lactic acidosis (Acute) Hyperlactatemia (Acute) Discharge planning issues (Acute) Pyelonephritis (Acute) Pulmonary embolism (Chronic) Cholecystitis (Acute) UTI (urinary tract infection) (Acute) Dislocation of left elbow (Acute) Falls (Acute) Chronic fatigue (Acute 03/31/17) Medical History Nabothian cyst At risk for sleep apnea Daytime somnolence Rosacea Tinea pedis Koilonychia Iron deficiency anemia GERD (gastroesophageal reflux disease) Onychomycosis Edema Depression Pain, joint, knee, left Hyperlipemia Bronchitis, acute, with bronchospasm Vaginal bleeding Surgical History H/O: hysterectomy Social History Smoking/Tobacco Use Status: Never Smoking risk assessment performed?: Yes Alcohol Intake: former Drug use: Never Substance use type: does not use Housing: apartment Do you feel safe at home: Yes Do you feel safe in your relationship?: Yes Readmission Within the Past 30 Days Yes or No: Yes Date of First Admission Date of 1st Admission: 09/13/25 Date of this Admission Date of Admission: 09/21/25 This admission was: Through ED Office Visit Since 1st Admission Have you seen your PCP in the office since discharge?: No Had an appointment Been Scheduled?: No Speicalist Appointments Have you seen any other specialist since your 1st Admission?: No I. Interview patient and/or Family Difficulty reaching your doctor or getting an office appt?: Yes Have you had trouble purchasing/ or taking medication?: No Have you had trouble with getting meals at home?: No Did you feel ready for discharge when you left the last time: Yes Were services received that you thought were set up on disch: Yes Did you call your physician beore you came to the ED?: No Did your physician tell you to come in?: No If the patient had a VNA ordered Did the patient have a VNA order?: No ED visits How many ED visits in the past 12 months: 2
--- NOTE | 2025-09-22 12:30 | PHA.REVIEW2 ---
Pharmacy Admission Review Admission Clinical Review Admission Pharmacy Review: Hyperlactatemia (Acute) Discharge planning issues (Acute) Pyelonephritis (Acute) Sulfa (Sulfonamide Antibiotics) Allergy (Intermediate, Verified 09/21/25 14:18) Rash Resuscitation Status Full Code Height 5 ft 2 in Weight 91.6 kg Pharmacy Admission Review Renal Dosing Renal Dosing: BUN 6 mg/dL (7-18) L 09/22/25 05:58 Creatinine 0.8 mg/dL (0.55-1.02) 09/22/25 05:58 Medications needing adjustments: Reviewed (CrCl 83.64 mL/min) List of meds needing interventions: Current medications are okay Anticoagulation Anticoagulation: Hgb 9.8 g/dL (11.2-15.7) L D 09/22/25 05:58 Hct 29.3 % (36.0-46.0) L 09/22/25 05:58 Plt Count 430 10^3/uL (130-400) H 09/22/25 05:58 Creatinine 0.8 mg/dL (0.55-1.02) 09/22/25 05:58 Therapeutic Anticoagulation: Reviewed (PE - Hgb decreased from 12.4) Medications: Apixaban (10mg PO BID) Relevant Labs Relevant Labs: Sodium 140 mmol/L (136-145) 09/22/25 05:58 Potassium 4.1 mmol/L (3.5-5.1) 09/22/25 05:58 Chloride 105 mmol/L (98-107) 09/22/25 05:58 Magnesium 1.8 mg/dL (1.8-2.4) 09/21/25 10:32 Magnesium Cancelled 09/21/25 10:32 Electrolytes, C-Reactive P, ESR: Reviewed Cardiac Review Cardiac Review: Troponin I 19 ng/L (<or=51) 09/21/25 12:03 Blood Pressure 125/89 1101 Blood Pressure 145/88 0732 Blood Pressure 158/88 0503 BP, HR, EF%: Reviewed (HR WNL) QTc Review QTc: Reviewed (478 from 09/21/25) IV to PO Switch IV Medications: Reviewed (ceftriaxone) Home Meds Home Med List reviewed: Reviewed Relevent Home Meds Not ordered & why?: acetaminophen (PRN), ibuprofen (PRN), Macrobid (on IV ceftriaxone) and diclofenac gel (PRN) Current Meds Current Medication Order Review: Intervened Comments: ceftriaxone ordered as now one last night and no continued order was put in. Informed provider who then put in q24h order. Pharmacy Antibiotic Review Relevant Labs: WBC 5.19 10^3/uL (4.4-10.8) 09/22/25 05:58 Temperature 36.6 C Temperature 36.6 C Temperature 36.8 C Pharmacy Antibiotic Activity: C/S review and Reviewed, no change Comments: Patient is on ceftriaxone, day 1, for pyelonephritis. Blood cultures pending.
--- NOTE | 2025-09-22 12:32 | PGE_ITS ---
Date of Service Date of service: 09/22/25 Time of Service: 12:32 Assessment and Plan Assessment and plan (1) Pulmonary embolism: Status: Chronic Assessment and plan: will be unable to afford Eliquis 10 mg twice daily x 10 doses then 5 mg twice daily, case management following, may need warfarin need further evaluation to determine course length, provoked, unprovoked etc, b ilateral lower extremity US to evaluate for DVT pending for tomorrow. referral to pulm/hem-onc outpatient for further workup if negative. (2) Pyelonephritis: Status: Ruled-out Assessment and plan: has been on ceftriaxone as previous urine culture grew E. coli sensitive to ceftriaxone no clinical evidence of untreated UTI, no dysuria no frequency, has urgency but states this is chronic and unchanged no symptoms of pyelonephritis, UA negative. stop antibiotics. urology consultation (3) Discharge planning issues: Status: Acute Assessment and plan: case management verified DOAC not covered by insurance, will need alternative. Discussed with Subjective Subjective Patient reports: no new complaints, tolerating liquids well, tolerating a regular diet and afebrile; denies nausea or shortness of breath Exam Narrative Exam Narrative: Chronically ill-appearing female older than stated age no acute distress head is atraumatic oral mucosas moist neck no JVD cardiovascular regular rate and rhythm respirations even and unlabored diminished throughout abdomen obese bilateral lower extremities chronic discoloration dry skin no unilateral swelling, feels her legs are at baseline she states neurologic she is awake alert oriented no focal deficits psychiatric appropriate mood and affect Objective Last Vital Signs Temp 36.6 C 09/22/25 11:01 Pulse 88 09/22/25 11:01 Resp 18 09/22/25 11:01 BP 125/89 09/22/25 11:01 Pulse Ox 97 09/22/25 11:01 Laboratory Results - last 24 hr 09/21/25 09/21/25 09/22/25 12:03 13:10 05:58 WBC 5.19 RBC 3.05 L Hgb 9.8 L D Hct 29.3 L MCV 96 H MCH 32.1 MCHC 33.4 RDW 15.8 H Plt Count 430 H MPV 9.0 Immature Gran % 1.2 Neutrophils % 63.2 Lymphocytes % 20.0 Monocytes % 9.8 Eosinophils % 5.0 Basophils % 0.8 Nucleated RBC % 0.0 Absolute Neutrophils 3.28 Absolute Lymphocytes 1.04 L Absolute Monocytes 0.51 Absolute Eosinophils 0.26 Absolute Basophils 0.04 Sodium 140 Potassium 4.1 Chloride 105 Carbon Dioxide 26.3 Anion Gap 8.7 BUN 6 L Creatinine 0.8 Est GFR (CKD-EPI 2020) 86.96 Glucose 93 Calcium 8.2 L Troponin I 19 Urine Color Yellow Urine Clarity Clear Urine pH 6.0 Ur Specific [place] 1.010 Urine Protein Negative Urine Ketones Trace H Urine Blood Negative Urine Nitrite Negative Urine Bilirubin Negative Urine Urobilinogen 0.2 Ur Leukocyte Esterase Negative Urine Glucose Negative PAWSS Have you Been Recently Intoxicated or Drunk Within the Last 30 days?: No Have you Ever Experienced Previous Episodes of Alcohol Withdrawal?: No Have you ever Experienced Withdrawal Seizures?: No Have you ever Experienced Delirium Tremens(DT)s?: No Have you ever undergone Alcohol Rehabilitation Treatment (i.e, inpt ot outpatient treatment programs)?: No Have you ever Experienced Blackouts?: No Have you ever Combined Alcohol with other Downers within the last 90 days?: No Have you ever Combined Alcohol with any other Substance of Abuse during the last 90 days?: No Positive Blood Alcohol level on Presentation? [PCS.BAL]: No Evidence of Increased Autonomic Activity (i.e. HR>120, tremor, sweating, agitation, nausea)?: No Result: 0 Time Spent with Patient Time Spent with Patient: 35-49 minutes Time was spent: preparing to see the patient(eg.review tests), obtaining and/or reviewing separately otained hiistory, ordering medications,tests, procedures, referring, communicating with other health healthcare corporate account director, indepentently interpreting results and care coordination
[2025-09-22] MEDS: cefTRIAXone 2 GM/50 ML BAG IVPB (13:32)
[2025-09-22 15:19] VITALS: BP 156/90; PULSE 75; RESP 18; TEMP 36.6; O2SAT 97
[2025-09-22 21:00] VITALS: BP 160/85; PULSE 83; RESP 16; TEMP 36.9; O2SAT 98
[2025-09-22 23:47] VITALS: BP 173/87; PULSE 74; RESP 16; TEMP 37.1; O2SAT 96
[2025-09-22] MEDS: Acetaminophen 325 MG TAB 650 MG PO (23:50)
--- NOTE | 2025-09-23 | DI.US_ITS ---
Exam(s) US EXTREMITY VENOUS BI EXAM: US EXTREMITY VENOUS BI CLINICAL HISTORY: bilateral lower extremities, has a PE, ? provoked. TECHNIQUE: Bilateral lower extremity venous ultrasound performed using grayscale, color-flow, and spectral Doppler analysis. COMPARISON: No exams were available for comparison FINDINGS: The bilateral common femoral, femoral and popliteal veins demonstrate normal compressibility, augmentation, and color Doppler. The posterior tibial and peroneal veins are patent. Lower leg edema. IMPRESSION: Right: Negative for DVT Left: Negative for DVT DATA REPOSITORY:
[2025-09-23 03:40] VITALS: BP 169/92; PULSE 79; RESP 18; TEMP 36.5; O2SAT 96
[2025-09-23 06:59] LABS: Abs Immature Grans 0.03 10^3/uL (0.0-0.06); HCT 31.4 % (36.0-46.0); HGB 10.3 g/dL (11.2-15.7); Immature Grans % 0.7 %; MCH 31.8 pg (27.0-33.0); MCHC 32.8 % (32.0-36.0); MCV 97 fL (80-95); MPV 9.1 fL (8.0-11.0); Platelet Count 387 10^3/uL (130-400); RBC 3.24 10^6/uL (3.93-5.22); RDW 15.6 % (11.7-14.6); RDW-SD 55.0 fL; WBC 4.24 10^3/uL (4.4-10.8)
[2025-09-23 07:06] LABS: Anion Gap 8.4 mmol/L (3-11); BUN 9 mg/dL (7-18); CO2 29.6 mmol/L (21.0-32.0); Calcium 8.4 mg/dL (8.5-10.1); Chloride 104 mmol/L (98-107); Glucose 101 mg/dL (74-106); Potassium 4.0 mmol/L (3.5-5.1); Sodium 142 mmol/L (136-145)
[2025-09-23 07:52] VITALS: BP 147/86; PULSE 67; RESP 16; TEMP 36.5; O2SAT 98
[2025-09-23] MEDS: Apixaban 5 MG TAB 10 MG PO (08:42)
[2025-09-23] MEDS: Normal Saline Flush 10 ML SYR IVP (08:43)
[2025-09-23 11:12] VITALS: BP 169/94; PULSE 75; RESP 16; TEMP 36.5; O2SAT 97
--- NOTE | 2025-09-23 11:14 | PDOC.CMDIS ---
Date of service: 09/23/25 Time of Service: 11:14 LACE Index Scoring Tool Questions: Length of Stay (in days): 2 Was the patient admitted via the E.D.?: Yes E.D. Visits: 2 Answers: Total Score: 7 Risk of Readmission: Low Risk Care Management Discharge Plan Reason for Hospitalization: PE, Pyelonephritis Discharge Plan: Carin is being discharged home via private vehicle with a friend. She will follow up with community providers and continue per her discharge plan of care. New RX for Eliquis was transmitted to [facility] in [place]. The initial cost will be $0 for 30 days, but has also provided Wiley with a separate Eliquis cost-savings card in anticipation of future RX's to see if she is eligible for $10 copays, which she can afford. CM notified Chronic Care Coordination at her PCP office. Patient/Family Education Needs: Review discharge instructions and plan for outpatient follow-up. Discuss ask me three.
--- NOTE | 2025-09-23 11:55 | W.PM.DS.N ---
Date of service: 09/23/25 Time of Service: 12:39 DS: Diagnosis Discharge Diagnosis (1) Pulmonary embolism: Status: Chronic (2) Pyelonephritis: Status: Ruled-out (3) Discharge planning issues: Status: Acute Discharge Plan Disposition Patient Disposition: Home Condition: Improving Discharge Details Reason For Visit: PE, Pyelonephritis Admit Date/Time: 09/21/25 14:06 Admit Provider: Modesto Chaparro Attending Provider: Modesto Chaparro Primary Care Provider: Unknown,Unknown Hospital Course Hospital Course: This 55 yo female patient with w PMHx of recent admission for DEEPAK, UTI and discharged home on nitrofurantoin on 09/16/25 presented to the ED for evaluation of increased tiredness over 2 past 2 days , fogginess, chills, dizziness, dry non-productive cough and upper airway congestion. Work up in the ED was positive for left sided pyeloneohritis, hyperllactemia w/o leukocytosis at per CT of the abdomen pelvis- new finding from CT abdomen and pelvis from 09/13/25. CTA confirmed pulmonary emboli in the right lower lobe without evidence of right heart failure. No positive findings on UA reported but her previous urine culture had grown E. coli that was only resistant to ampicillin and Augmentin. Denied previous history and family of thrombophilia, PE, DVT. Lactate was 2.5 and 3.1, potassium was 3.1. Ceftriaxone was initiated in the ED and the patient admitted to the medical surgical floor by the hospitalist team. Eliquis was initiated and will have to continue to at least 90 days with PCP follow-up. Cefixime script sent to listed pharmacy to complete a total 7 day-course of antibiotics. Lower extremity US showed completed and the rport was pending at the time of discharge. Discussed with Dr. Tolentino Recommendations for Follow Up Recommended tests to be ordered by follow up provider: F/u on lower extremities venous study report Home Meds and New Rx's Prescriptions: New Eliquis 5 mg tablet 5 mg PO BID Qty: 66 0RF cefixime [Suprax] 400 mg capsule 400 mg PO DAILY Qty: 5 0RF Rx Instructions: Start 09/24/2025 AM Bio-K plus 50 billion cell capsule,delayed release(DR/EC) 1 cap PO DAILY Qty: 7 0RF Continued diclofenac sodium [Voltaren Arthritis Pain] 1 % gel 2 g topical ONCE PRN Rx Instructions: apply to single elbow, wrist or hand; for hand includes palm/fingers/back of hand ibuprofen 200 mg capsule 400 mg PO ONCE PRN acetaminophen [Tylenol] 325 mg capsule 650 mg PO ONCE PRN nitrofurantoin monohyd/m-cryst [Macrobid] 100 mg Capsule 100 mg PO BID Qty: 12 0RF Discharge Instructions Stand Alone Forms: Portal Information Referrals: Unknown,Unknown [Primary Care Provider, Unknown] Referral Note: Follow- up with PCP within 7 days of discharge- sees PCP at [facility] - have scheduled October appointment move to September Activity:: Activity as Tolerated Equipment/Supplies:: as per [employer] Diet:: As per [employer] Discharge Orders Discharge Orders: Discharge Order (Routine); Ordered 09/23/25 Ordered By: Jane Reed DS: Summary Time Spent with Patient providing and/or coordinating discharge services: Greater than 30 minutes Status at Discharge Functional status at discharge: uses cane/walker Overall status at discharge: patient is progressing back to baseline Mental Status: mental status grossly normal Speech and Movement: speech and movement normal Mood: congruent mood Affect: normal affect Exam Narrative Exam Narrative: Gen: Comfortable w/o acute distress, congruent mood and affect, moist mucous membranes, non-icteric sclera Neuro: Alert and oriented x4, neurologically intact Resp: Unlabored breathing, lungs are clear to auscultation bilaterally Heart: Regular S1, S2 , no murmur Abdomen: non- distended, soft and non-tender : No CVA tenderness Ext: minimal trace edema to LEs L> R, on erythema or pain Psych Mental Status: mental status grossly normal Speech and Movement: speech and movement normal Mood: congruent mood Affect: normal affect DS: Data Vitals/I&O Vitals and I&O: Vital Signs Temperature 36.5 C 09/23/25 11:12 Temperature Source Temporal Artery Scan 09/23/25 11:12 Pulse 75 09/23/25 11:12 Pulse Rhythm Regular 09/21/25 15:37 Pulse 72 09/21/25 11:00 Respiratory Rate 16 09/23/25 11:12 Respiratory Effort Normal 09/21/25 15:37 Respiratory Depth Normal 09/21/25 15:37 Respiratory Pattern Normal 09/21/25 15:37 Blood Pressure 169/94 H 09/23/25 11:12 Blood Pressure Mean 119 09/23/25 11:12 Pulse Oximetry 97 09/23/25 11:12 Oxygen Delivery Method Room Air 09/23/25 11:12 Oxygen Flow Rate 0 09/23/25 11:12 Pain Level 0 09/23/25 11:12 Intake & Output 09/22/25 09/22/25 09/23/25 11:59 23:59 11:59 Intake Total 2177.083 / 5527.083 2350 / 5527.083 2360 / 2360 Balance 2177.083 / 5527.083 2350 / 5527.083 2360 / 2360 Intake: IV 1977.083 / 4027.083 1050 / 4027.083 1999 Oral 200 / 1500 1300 / 1500 360 / 360 Other: Urine Color Yellow Yellow Yellow Urine Appearance Clear Urine Odor Normal Normal Normal Comment BR Pt voids an immeasurable amount into the toilet. Pt voids an immeasurable amount ind. into the toilet. Data Completed and Pending Pending Labs at Discharge: 09/21/25 09/21/25 09/21/25 10:32 10:32 10:32 WBC 5.64 RBC 4.08 Hgb 12.4 Hct 38.7 MCV 95 MCH 30.4 MCHC 32.0 RDW 15.3 H Plt Count 544 H MPV 9.0 Immature Gran % 1.2 Neutrophils % 68.0 Lymphocytes % 17.4 Monocytes % 6.9 Eosinophils % 5.3 Basophils % 1.2 Nucleated RBC % 0.0 Absolute Neutrophils 3.83 Absolute Lymphocytes 0.98 L Absolute Monocytes 0.39 Absolute Eosinophils 0.30 Absolute Basophils 0.07 VBG Lactate 2.5 H* Sodium 142 Potassium 3.3 L Chloride 102 Carbon Dioxide 24.5 Anion Gap 15.5 H BUN 8 Creatinine 0.9 Est GFR (CKD-EPI 2020) 75.50 Glucose 91 Calcium 9.1 Magnesium 1.8 Cancelled Total Bilirubin 0.2 AST 18 ALT 17 Alkaline Phosphatase 98 Troponin I Cancelled 20 Total Protein 8.4 H Albumin 3.6 Urine Color Urine Clarity Urine pH Ur Specific [place] Urine Protein Urine Ketones Urine Blood Urine Nitrite Urine Bilirubin Urine Urobilinogen Ur Leukocyte Esterase Urine Glucose 09/21/25 09/21/25 09/22/25 12:03 13:10 05:58 WBC 5.19 RBC 3.05 L Hgb 9.8 L D Hct 29.3 L MCV 96 H MCH 32.1 MCHC 33.4 RDW 15.8 H Plt Count 430 H MPV 9.0 Immature Gran % 1.2 Neutrophils % 63.2 Lymphocytes % 20.0 Monocytes % 9.8 Eosinophils % 5.0 Basophils % 0.8 Nucleated RBC % 0.0 Absolute Neutrophils 3.28 Absolute Lymphocytes 1.04 L Absolute Monocytes 0.51 Absolute Eosinophils 0.26 Absolute Basophils 0.04 VBG Lactate 3.1 H* Sodium 140 Potassium 4.1 Chloride 105 Carbon Dioxide 26.3 Anion Gap 8.7 BUN 6 L Creatinine 0.8 Est GFR (CKD-EPI 2020) 86.96 Glucose 93 Calcium 8.2 L Magnesium Total Bilirubin AST ALT Alkaline Phosphatase Troponin I 19 Total Protein Albumin Urine Color Yellow Urine Clarity Clear Urine pH 6.0 Ur Specific [place] 1.010 Urine Protein Negative Urine Ketones Trace H Urine Blood Negative Urine Nitrite Negative Urine Bilirubin Negative Urine Urobilinogen 0.2 Ur Leukocyte Esterase Negative Urine Glucose Negative 09/23/25 06:30 WBC 4.24 L RBC 3.24 L Hgb 10.3 L Hct 31.4 L MCV 97 H MCH 31.8 MCHC 32.8 RDW 15.6 H Plt Count 387 MPV 9.1 Immature Gran % 0.7 Neutrophils % 58.5 Lymphocytes % 29.0 Monocytes % 6.4 Eosinophils % 4.5 Basophils % 0.9 Nucleated RBC % 0.0 Absolute Neutrophils 2.48 Absolute Lymphocytes 1.23 Absolute Monocytes 0.27 Absolute Eosinophils 0.19 Absolute Basophils 0.04 VBG Lactate Sodium 142 Potassium 4.0 Chloride 104 Carbon Dioxide 29.6 Anion Gap 8.4 BUN 9 Creatinine 0.8 Est GFR (CKD-EPI 2020) 86.96 Glucose 101 Calcium 8.4 L Magnesium Total Bilirubin AST ALT Alkaline Phosphatase Troponin I Total Protein Albumin Urine Color Urine Clarity Urine pH Ur Specific [place] Urine Protein Urine Ketones Urine Blood Urine Nitrite Urine Bilirubin Urine Urobilinogen Ur Leukocyte Esterase Urine Glucose Preliminary micro results at discharge 09/21/25 14:05 Blood Blood Culture - Preliminary NO GROWTH 24 HOURS 09/21/25 14:11 Blood Blood Culture - Preliminary NO GROWTH 24 HOURS PFSH All Active Problems (Updated 09/22/25 @ 18:01 by Leyla Lopez NP) Lactic acidosis (Acute) Hyperlactatemia (Acute) Discharge planning issues (Acute) Pulmonary embolism (Chronic) Cholecystitis (Acute) UTI (urinary tract infection) (Acute) Dislocation of left elbow (Acute) Falls (Acute) Chronic fatigue (Acute 03/31/17) Medical History Nabothian cyst At risk for sleep apnea Daytime somnolence Rosacea Tinea pedis Koilonychia Iron deficiency anemia GERD (gastroesophageal reflux disease) Onychomycosis Edema Depression Pain, joint, knee, left Hyperlipemia Bronchitis, acute, with bronchospasm Vaginal bleeding Surgical History H/O: hysterectomy Social History Smoking/Tobacco Use Status: Never Smoking risk assessment performed?: Yes Alcohol Intake: former Drug use: Never Substance use type: does not use Housing: apartment Do you feel safe at home: Yes Do you feel safe in your relationship?: Yes Time Spent with Patient Time Spent with Patient: >85 minutes Time was spent: preparing to see the patient(eg.review tests), obtaining and/or reviewing separately otained hiistory, ordering medications,tests, procedures, referring, communicating with other health healthcare customer service, indepentently interpreting results, counseling the patient, care coordination and other
--- NOTE | 2025-09-23 13:35 | W.UROLOGYCON ---
Date of service: 09/23/25 Time of Service: 13:35 Assessment and Plan Assessment and plan (1) Pyelonephritis: Status: Ruled-out Assessment and plan: Clinically, she did not have traditional symptoms associated with pyelonephritis. She had no real flank pain. Her white blood count was not elevated. Her urinalysis was normal after she completed her nitrofurantoin. She did not have a high fever. She did have lactic acidosis and a subtle finding on CT scan that can sometimes be seen with pyelonephritis. Given her lack of symptoms, I do not think that we need IV antibiotics for this patient. We may want to treat her initial positive urine culture as a complicated UTI and use an antibiotic that has better tissue penetration to complete her antibiotic therapy. She certainly does not need any surgical treatment from me or any drainage procedure from IR. History of Present Illness History of Present Illness Chief Complaint: abnormal CT scan Narrative: This is a 55-year-old woman who was recently diagnosed with an E. coli urinary tract infection. She was treated with nitrofurantoin. She returned to the emergency department with fatigue and respiratory symptoms. She has since been identified as having a pulmonary embolism. She was not febrile and her white blood count was not elevated, but she did have lactic acidosis. A CT of the abdomen done with contrast to raise the possibility of the left sided pyelonephritis. She was started on IV antibiotics and I been asked to see her. She is not having any flank pain. She does not really have any dysuria. She has had urinary tract infections in the past but they have not occurred frequently. She has no history of kidney stones or prior urologic surgery. Review of Systems Narrative: Fatigue. No fevers or chills No vision change or dysphasia No diabetes or thyroid dysfunction Pulmonary embolism. No hemoptysis No chest pain or palpitations No nausea, vomiting, hepatitis, ulcers, jaundice No seizures, strokes or peripheral neuropathy No gout PFSH All Active Problems (Updated 09/24/25 @ 00:04 by JOE SANDHU) Lactic acidosis (Acute) Discharge planning issues (Acute) Pulmonary embolism (Chronic) Cholecystitis (Acute) UTI (urinary tract infection) (Acute) Dislocation of left elbow (Acute) Falls (Acute) Chronic fatigue (Acute 03/31/17) Medical History Nabothian cyst At risk for sleep apnea Daytime somnolence Rosacea Tinea pedis Koilonychia Iron deficiency anemia GERD (gastroesophageal reflux disease) Onychomycosis Edema Depression Pain, joint, knee, left Hyperlipemia Bronchitis, acute, with bronchospasm Vaginal bleeding Surgical History H/O: hysterectomy Social History Smoking/Tobacco Use Status: Never Smoking risk assessment performed?: Yes Alcohol Intake: former Drug use: Never Substance use type: does not use Housing: apartment Do you feel safe at home: Yes Do you feel safe in your relationship?: Yes Exam Narrative Exam Narrative: She looks fairly comfortable sitting up in her chair Her vital signs are documented elsewhere in the chart Her abdomen is soft. There is no CVA tenderness She is awake and alert I reviewed her CT of the abdomen and pelvis on the PACS system. This scan was done with IV contrast. There is no hydronephrosis. No stones are seen. There is no perinephric abscess. The only abnormality is some mild heterogenicity in the uptake pattern in her left renal paranchyma Results Last Vital Signs Temp 36.5 C 09/23/25 11:12 Pulse 75 09/23/25 11:12 Resp 16 09/23/25 11:12 BP 169/94 H 09/23/25 11:12 Pulse Ox 97 09/23/25 11:12 Labs 09/23/25 06:30 09/23/25 06:30 Labs: Laboratory Results - last 24 hr 09/23/25 09/23/25 06:30 13:08 WBC 4.24 L RBC 3.24 L Hgb 10.3 L Hct 31.4 L MCV 97 H MCH 31.8 MCHC 32.8 RDW 15.6 H Plt Count 387 MPV 9.1 Immature Gran % 0.7 Neutrophils % 58.5 Lymphocytes % 29.0 Monocytes % 6.4 Eosinophils % 4.5 Basophils % 0.9 Nucleated RBC % 0.0 Absolute Neutrophils 2.48 Absolute Lymphocytes 1.23 Absolute Monocytes 0.27 Absolute Eosinophils 0.19 Absolute Basophils 0.04 VBG Lactate 1.5 Sodium 142 Potassium 4.0 Chloride 104 Carbon Dioxide 29.6 Anion Gap 8.4 BUN 9 Creatinine 0.8 Est GFR (CKD-EPI 2020) 86.96 Glucose 101 Calcium 8.4 L
--- NOTE | 2025-10-01 09:29 | W.ED.FU ---
Date of service: 10/01/25 Time of Service: 09:29 Follow Up Plan: This patient had an incidental finding on her recent ED visit. She was found to have a calcified right thyroid nodule for which radiology recommended an nonemergent thyroid ultrasound. I tried to call the patient at her home number concerning this unexpected finding. Unfortunately she had a voicemail that was not set up. 11:19 AM I was in touch with Dr. Neil as the patient had been hospitalized following her recent ED visit. He will help to arrange primary care follow-up and help to arrange outpatient ultrasound for her unexpectedly found thyroid nodule.
== END 2025-09-23 16:19 | disposition home or self-care (01) ==
LOC: ER 09:35 → MS 15:34
PROVIDERS: Admitting Provider Family Medicine; Emergency Provider General Practice; Responsible Provider Nurse Practitioner Acute Care; Visit Provider Family Medicine
DX: I26.99 Other pulmonary embolism without acute cor pulmonale (principal); E87.20 Acidosis, unspecified; R53.83 Other fatigue; R29.6 Repeated falls; G47.19 Other hypersomnia; E78.5 Hyperlipidemia, unspecified; F32.A Depression, unspecified; B35.1 Tinea unguium; K21.9 Gastro-esophageal reflux disease without esophagitis; D50.9 Iron deficiency anemia, unspecified; L71.9 Rosacea, unspecified; E87.6 Hypokalemia; Z79.899 Other long term (current) drug therapy
CPT/HCPCS: 00123; 36415; 71275; 80048; 80053; 87040; 90656; 93005; 96361; 96365; 96375; 99285; 71046; 74177; 81003; 83605; 83735; 84484; 85025; 93010; 93970; 99223; 99232; 99239; G0378; J0131; J0696; J1885; J3490; J7644

== ENCOUNTER 2025-10-29 15:47 | Outpatient (REF) | payer BC, SELFPAY ==
[2025-10-29 15:40] LABS: HCT 37.4 % (36.0-46.0); HGB 11.9 g/dL (11.2-15.7); MCH 31.1 pg (27.0-33.0); MCHC 31.8 % (32.0-36.0); MCV 98 fL (80-95); MPV 9.7 fL (8.0-11.0); Platelet Count 292 10^3/uL (130-400); RBC 3.83 10^6/uL (3.93-5.22); RDW 15.6 % (11.7-14.6); RDW-SD 56.0 fL; WBC 4.63 10^3/uL (4.4-10.8)
[2025-10-29 16:20] LABS: Anion Gap 10.4 mmol/L (3-11); BUN 9 mg/dL (9-23); CO2 26.6 mmol/L (20.0-31.0); Calcium 9.0 mg/dL (8.3-10.6); Chloride 107 mmol/L (98-107); Glucose 92 mg/dL (74-106); Potassium 4.2 mmol/L (3.5-5.1); Sodium 144 mmol/L (136-145)
== END 2025-10-29 15:48 | disposition home or self-care (01) ==
LOC: NCHCN 15:47
PROVIDERS: Visit Provider Student in an Organized Health Care Education/Training Program
DX: I10 Essential (primary) hypertension (principal)
CPT/HCPCS: 80048; 85027